=== PATIENT | female | born 1945 | race Caucasian/White ===

== ENCOUNTER → 2017-10-08 10:04 | Outpatient (REF) | payer MEDICARE, SELFPAY ==
[2017-10-08 18:25] LABS: Basophils # 0.1 K/mm3 (0-0.2); Basophils % 0.6 % (0.1-2.0); Eosinophils # 0.3 K/mm3 (0.0-0.4); Eosinophils % 2.8 % (0.1-12.0); Hematocrit 44.7 % (37.0-47.0); Hemoglobin 14.6 g/dL (12.2-16.2); Lymphocytes # 3.6 K/mm3 (0.7-4.5); Lymphocytes % 35.2 K/mm3 (10-50); Mean Corpuscular HGB Conc 32.6 g/dL (31.8-35.4); Mean Corpuscular Hemoglobin 29.2 pg (27.0-31.2); Mean Corpuscular Volume 89.5 fl (81-99); Mean Platelet Volume 7.9 fl (7.4-10.4); Monocytes # 0.5 K/mm3 (0.1-1.0); Monocytes % 4.8 % (1.7-9.3); Neutrophils # 5.8 K/mm3 (1.8-7.8); Neutrophils % 56.6 % (37.0-80.0); Platelet Count 437 K/mm3 (142-424); Red Blood Count 4.99 M/mm3 (4.20-5.40); White Blood Count 10.3 K/mm3 (4.8-10.8)
[2017-10-08 20:35] LABS: Alanine Aminotransferase 20 U/L (12-78); Albumin Level 3.8 gm/dL (3.4-5.0); Albumin/Globulin Ratio 1.1 (1.1-1.8); Alkaline Phosphatase 64 U/L (46-116); Anion Gap 12.5 mEq/L (5-15); Aspartate Amino Transferase 8 U/L (15-37); Bilirubin,Total 0.4 mg/dL (0.2-1.0); Blood Urea Nitrogen 13 mg/dL (7-18); Calcium 9.3 mg/dL (8.5-10.1); Carbon Dioxide 27 mmol/L (21.0-32.0); Chloride 100 mmol/L (98-107); Chol/HDL Ratio 7.3 (1-3.5); Cholesterol 261 mg/dL (140-200); Creatinine,Serum 0.65 mg/dL (0.55-1.02); Estimated Glomerular Filt Rate 90 ml/min (>60); GFR (African American) 108 ML/MIN (>60); Globulin 3.5 gm/dl (1.3-3.2); Glucose 229 mg/dL (74-106); HDL Cholesterol 36 mg/dL (29-89); LDL Cholesterol 165 mg/dL (0-130); Potassium 4.5 mmoL/L (3.5-5.1); Sodium 135 mmol/L (136-145); T4 (Thyroxine) 11.7 ug/dl (4.7-13.3); Thyroid Stimulating Hormone 0.46 uIU/ml (0.358-3.740); Total Protein,Serum 7.3 gm/dL (6.4-8.2); Triglycerides 298 mg/dL (30-200); VLDL Cholesterol 60 mg/dL (0-40)
== END ==
LOC: LAB 10:04
PROVIDERS: Visit Provider Physician Assistant
DX: E03.9 Hypothyroidism, unspecified (principal)
CPT/HCPCS: 80053; 80061; 84436; 84443; 85025

== ENCOUNTER → 2018-06-03 13:23 | Outpatient (CLI) | payer MEDICARE, SELFPAY ==
[2018-06-03 16:41] LABS: Basophils # 0.1 K/mm3 (0-0.2); Basophils % 0.6 % (0.1-2.0); Eosinophils # 0.3 K/mm3 (0.0-0.4); Eosinophils % 2.8 % (0.1-12.0); Hemoglobin 13.4 g/dL (12.2-16.2); Lymphocytes # 3.2 K/mm3 (0.7-4.5); Lymphocytes % 33.7 % (10-50); Mean Corpuscular HGB Conc 33.4 g/dL (31.8-35.4); Mean Corpuscular Hemoglobin 29.3 pg (27.0-31.2); Mean Corpuscular Volume 87.7 fl (81-99); Mean Platelet Volume 7.5 fl (7.4-10.4); Monocytes # 0.4 K/mm3 (0.1-1.0); Monocytes % 3.9 % (1.7-9.3); Neutrophils # 5.5 K/mm3 (1.8-7.8); Platelet Count 434 K/mm3 (142-424); Red Blood Count 4.56 M/mm3 (4.20-5.40); Red Cell Distribution Width 13.9 % (11.5-17.5); White Blood Count 9.4 K/mm3 (4.8-10.8)
[2018-06-03 17:03] LABS: Alanine Aminotransferase 19 U/L (12-78); Albumin Level 3.7 gm/dL (3.4-5.0); Albumin/Globulin Ratio 1.1 (1.1-1.8); Alkaline Phosphatase 60 U/L (46-116); Anion Gap 16.3 mEq/L (5-15); Aspartate Amino Transferase 12 U/L (15-37); Bilirubin,Total 0.4 mg/dL (0.2-1.0); Blood Urea Nitrogen 16 mg/dL (7-18); Calcium 9.3 mg/dL (8.5-10.1); Carbon Dioxide 27 mmol/L (21.0-32.0); Chloride 99 mmol/L (98-107); Chol/HDL Ratio 7.1 (1-3.5); Cholesterol 284 mg/dL (140-200); Creatinine,Serum 0.66 mg/dL (0.55-1.02); Estimated Glomerular Filt Rate 88 ml/min (>60); GFR (African American) 106 ML/MIN (>60); Globulin 3.5 gm/dl (1.3-3.2); Glucose 184 mg/dL (74-106); HDL Cholesterol 40 mg/dL (29-89); LDL Cholesterol 186 mg/dL (0-130); Potassium 4.3 mmoL/L (3.5-5.1); Sodium 138 mmol/L (136-145); T4 (Thyroxine) 11.6 ug/dl (4.7-13.3); Thyroid Stimulating Hormone 2.92 uIU/ml (0.358-3.740); Total Protein,Serum 7.2 gm/dL (6.4-8.2); Triglycerides 288 mg/dL (30-200); VLDL Cholesterol 58 mg/dL (0-40)
[2018-06-05 09:04] LABS: Vitamin D 25 Hydroxy 30.6 ng/mL (30.0-100.0)
== END ==
PROVIDERS: Visit Provider Physician Assistant
DX: E03.9 Hypothyroidism, unspecified (principal); N30.00 Acute cystitis without hematuria; F41.9 Anxiety disorder, unspecified
CPT/HCPCS: 80053; 80061; 82652; 84436; 84443; 85025; 87086; 87088; 87186

== ENCOUNTER → 2018-10-22 13:13 | Outpatient (CLI) | payer MEDICARE, OTHER, MEDICAID, SELFPAY ==
--- NOTE | 2018-10-22 13:24 | XR_ITS ---
XR foot LT min 3V HISTORY: ITS.REASON: pain ORDERING PHYSICIAN: Yumi Desai APRN PATIENT AGE: 73 years COMPARISON: None FINDINGS: There is moderate hallux valgus with osteoarthritic change of the first metatarsophalangeal junction and mild lateral displacement of the proximal phalanx of the great toe. There is a minimally displaced fracture involving the anterior aspect of the calcaneus. As involves the mid subtalar joint region with minimal superior displacement of the distal fracture fragment. There is suggestion of some overlying callus formation on the oblique view. IMPRESSION: Minimally displaced fracture of the anterior aspect of the calcaneus extending cephalad to caudad with minimal superior displacement of the distal fracture fragment extending into the mid subtalar region. This fracture appears subacute
== END ==
PROVIDERS: PCP Nurse Practitioner Family; Visit Provider Nurse Practitioner Family
DX: M79.672 Pain in left foot (principal); S99.922A Unspecified injury of left foot, initial encounter
CPT/HCPCS: 73630

== ENCOUNTER → 2018-10-29 14:53 | Outpatient (CLI) | payer MEDICARE, OTHER, MEDICAID, SELFPAY ==
--- NOTE | 2018-10-29 15:12 | CT_ITS ---
CT foot LT wo con INDICATION: Follow-up calcaneal fracture, preoperative evaluation ITS.REASON: LT CALCANEAL FX ORDERING PHYSICIAN: Jessica Amezcua DPM PATIENT AGE: 73 years COMPARISON: None TECHNIQUE: Contrast Used: Oral Contrast: Axial images were obtained. Sagittal and coronal reformatted images are reviewed as well. All CT scans at the facility use one or more dose reduction, viz: automated exposure control, ma/kV adjustment per patient size (including targeted exams where dose is matched to indication, i.e. head), or iterative reconstruction technique. FINDINGS: There is a comminuted fracture through the anterior aspect of the calcaneus which involves the middle facet/sustentaculum Craig with comminution. There is superior displacement of the distal fracture fragment by approximately 7 mm. The posterior facet and the anterior facet appears intact. There appears to be a small bulge and along the anterior and medial aspect of the talus with a small extra linear bony density at this region. The navicular has an unremarkable appearance. There is a comminuted minimally displaced fracture involving the posterior and inferior aspect of the cuboid. The cuneiforms and metatarsals have an unremarkable appearance. There is mild generalized soft tissue swelling of the mid posterior aspect of the ankle. There is loss of Boehler's angle. IMPRESSION: Comminuted fracture involves the anterior aspect of the calcaneus just posterior to the anterior facet involving the middle facet/sustentaculum talus with superior displacement of the distal fracture fragment, and loss of Boehler's angle with associated comminuted fracture at the proximal and inferior aspect of the cuboid
== END ==
PROVIDERS: PCP Physician Assistant; Visit Provider Podiatrist
DX: S92.062A Displaced intraarticular fracture of left calcaneus, initial encounter for closed fracture (principal); M79.672 Pain in left foot; R60.0 Localized edema; E08.621 Diabetes mellitus due to underlying condition with foot ulcer; L84 Corns and callosities; L60.2 Onychogryphosis; L97.512 Non-pressure chronic ulcer of other part of right foot with fat layer exposed; Z79.84 Long term (current) use of oral hypoglycemic drugs
CPT/HCPCS: 73700

== ENCOUNTER → 2018-12-29 13:20 | Outpatient (CLI) | payer MEDICARE, OTHER, MEDICAID, SELFPAY ==
--- NOTE | 2018-12-29 13:29 | XR_ITS ---
PROCEDURE: XR CALCANEUS LT MIN 2V CLINICAL INDICATION: fracture Follow-up fracture COMPARISON: from 10/22/[address] calcaneus LT from 10/29/2018 XR FOOT WT BEARING LT 3V from 12/29/2018 FINDINGS: Comminuted fracture is once again noted involving the anterior aspect of the calcaneus extending into the anterior subtalar joint. Decreased density/lucency is noted involving the anterior fracture fragments at this level. There is superior displacement of the distal fracture fragments. There is pes planus. There is moderate hallux valgus with osteoarthritis of the 1st MTP joint. IMPRESSION: Comminuted distal calcaneal fracture is once again noted. There is increased lucency at the fracture site with superior displacement of the distal fracture fragment. Pes planus has developed. 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 The lucency at the fracture site also raises the sub possibility of superimposed infection. Please correlate with clinical parameters. Dictated by: Parish Crystal MD 12/29/2018 17:26 Electronically signed by Parish Crystal MD in [place] 12/29/2018 17:26
--- NOTE | 2018-12-29 13:29 | XR_ITS ---
PROCEDURE: XR ANKLE WT BEARING LT MIN 3V CLINICAL INDICATION: pain Pain and swelling COMPARISON: CALLT CT calcaneus LT from 10/29/2018 XR CALCANEUS LT MIN 2V from 12/29/2018 XR FOOT WT BEARING LT 3V from 12/29/2018 FINDINGS: The ankle joint has an unremarkable appearance. Please see the calcaneus and foot report for further description. Tibiotalar joint common medial malleolar region, and lateral malleolar region are unremarkable. Unremarkable talar dome. IMPRESSION: Negative ankle Dictated by: Parish Crystal MD 12/29/2018 17:06 Electronically signed by Parish Crystal MD in [place] 12/29/2018 17:06
== END ==
PROVIDERS: PCP Emergency Medicine; Visit Provider Podiatrist
DX: M79.672 Pain in left foot (principal); S92.002A Unspecified fracture of left calcaneus, initial encounter for closed fracture
CPT/HCPCS: 73610; 73630; 73650

== ENCOUNTER 2019-02-01 16:11 | Outpatient (RCR) | payer MEDICARE, OTHER, MEDICAID, SELFPAY | END 2019-02-01 16:15 | disposition home or self-care (01) | LOC: PT 16:11 | PROVIDERS: PCP Emergency Medicine; Visit Provider Nurse Practitioner Family | DX: R26.89 Other abnormalities of gait and mobility (principal); R26.2 Difficulty in walking, not elsewhere classified ==

== ENCOUNTER → 2019-02-15 15:35 | Outpatient (CLI) | payer MEDICARE, OTHER, MEDICAID, SELFPAY ==
--- NOTE | 2019-02-15 15:41 | XR_ITS ---
PROCEDURE: XR FOOT LT 2V CLINICAL INDICATION: left foot and ankle pain COMPARISON: CALLT CT calcaneus LT from 10/29/2018 XR ANKLE WT BEARING LT MIN 3V from 12/29/2018 XR FOOT WT BEARING LT 3V from 12/29/2018 XR ANKLE LT 2V from 02/15/2019 FINDINGS: Comminuted ununited fracture involves the distal aspect of the calcaneus with lateral subluxation of the calcaneus. Remains superior displacement of the distal fracture fragment there is pes planus. Bony debris is present at the lateral malleolar region. Other findings:None. 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 Dictated by: Parish Crystal MD 02/15/2019 16:04 Electronically signed by Parish Crystal MD in [facility] 02/15/2019 16:04
== END ==
PROVIDERS: PCP Emergency Medicine; Visit Provider Emergency Medicine
DX: M79.672 Pain in left foot; M25.572 Pain in left ankle and joints of left foot
CPT/HCPCS: 73600; 73620

== ENCOUNTER → 2019-02-25 12:55 | Outpatient (CLI) | payer MEDICARE, OTHER, MEDICAID, SELFPAY ==
--- NOTE | 2019-02-25 12:58 | MR_ITS ---
PROCEDURE: MR FOOT LT WO CON CLINICAL INDICATION: left foot and ankle pain Left foot and ankle pain, constant swelling with ankle and foot numbness COMPARISON: CALLT CT calcaneus LT from 10/29/2018 XR ANKLE LT 2V from 02/15/2019 TECHNIQUE: Routine multiplanar multi echo sequences are performed without gadolinium enhancement. FINDINGS: The ankle is not included on this study and was performed on a separate date. There is hallux valgus with mild osteoarthritic change of the 1st MTP joint. The distal tarsals metatarsals and phalanges have an otherwise unremarkable appearance. No fracture, dislocation, lytic lesion or osteomyelitis evident. Soft tissue swelling is present at the dorsum of the foot laterally. IMPRESSION: Mild hallux valgus with osteoarthritis of the 1st MTP joint. Soft tissue swelling along the dorsal lateral aspect of the midfoot. Please see ankle for further description. The mid and hindfoot are not included on this exam. Dictated by: Parish Crystal MD 02/26/2019 08:34 Electronically signed by Parish Crystal MD in [place] 03/07/2019 06:19
== END ==
PROVIDERS: PCP Emergency Medicine; Visit Provider Emergency Medicine
DX: M79.672 Pain in left foot; M25.572 Pain in left ankle and joints of left foot
CPT/HCPCS: 73718

== ENCOUNTER → 2019-02-28 14:31 | Outpatient (CLI) | payer MEDICARE, OTHER, MEDICAID, SELFPAY ==
--- NOTE | 2019-02-28 14:36 | MR_ITS ---
PROCEDURE: MR ANKLE LT WO CON CLINICAL INDICATION: ankle pain History of ankle fracture with recent re-injury with limited range of motion. Pain and swelling COMPARISON: CALLT CT calcaneus LT from 10/29/2018 TECHNIQUE: Routine multiplanar multi echo sequences are performed without gadolinium enhancement. FINDINGS: There is mild bone marrow edema of the talus. There is diffuse bone marrow edema of the calcaneus. There is an old fracture of the distal aspect of the calcaneus with nonunion of the distal fracture fragments and comminution. There is diffuse edema about the midfoot. There is lateral subluxation of the calcaneus at the talocalcaneal joint by approximately 13 mm. This has developed since the previous CT scan. There is diffuse soft tissue swelling along the medial aspect of the talus and the distal aspect of the calcaneus. A small fluid collection is present lateral to the flexor hallucis longus tendon at 14 mm. Fluid is also present along the peroneal tendon sheath. The Achilles tendon appears intact as do the anterior extensor tendons. The talonavicular joint is unremarkable. There is a longitudinal area of decreased T1 and increased T2 signal within the posterior aspect of the calcaneus which could be due to a nondisplaced fracture. IMPRESSION: 1. Nonunited comminuted fracture involves the anterior aspect of the talus as noted on the previous CT scan. 2. There has been interval development of lateral subluxation of the calcaneus at the talonavicular joint. 3. There may be a nondisplaced fracture of the posterior and inferior aspect of the calcaneus 4. Diffuse soft tissue swelling about the ankle and midfoot as described above with bone marrow edema of the calcaneus and talus. There is a mild degree of artifact from motion. Consider repeating CT scan for better bony detail and to compared to the previous CT scan 10/29/2018. 5. Diffuse soft tissue swelling which may be inflammatory or infectious. No obvious osteomyelitis however, that entity is not excluded involving the distal calcaneal fracture fragments which are not well delineated. Dictated by: Parish Crystal MD 03/01/2019 14:26 Electronically signed by Parish Crystal MD in [place] 03/07/2019 06:37
== END ==
PROVIDERS: PCP Emergency Medicine; Visit Provider Emergency Medicine
DX: M25.572 Pain in left ankle and joints of left foot (principal)
CPT/HCPCS: 73721

== ENCOUNTER → 2019-03-14 13:38 | Outpatient (CLI) | payer MEDICARE, OTHER, MEDICAID, SELFPAY ==
--- NOTE | 2019-03-14 14:09 | ECG_ITS ---
APPROVED REPORT Exam: Resting ECG HR:89 bpm ECG Measurements Heart Rate 89 AXES OK 150 P 71 QRSd 84 QRS 46 QT 360 T 58 QTc 438 <Conclusion> Normal sinus rhythm Possible Anterior infarct, age undetermined Abnormal ECG Electronically signed by : Calvin Pablo, 03/20/2019 14:37:17
--- NOTE | 2019-03-14 14:14 | XR_ITS ---
PROCEDURE: XR CHEST 2V CLINICAL HISTORY: CURRENT SMOKER COMPARISON: CXR CHEST(2 VIEWS-NOT PORTABLE) from 07/12/[id number] abdomen pelvis w con from 07/24/2018 FINDINGS: The cardiomediastinal silhouette and pulmonary vascularity are within normal limits. There is a stable punctate 2 millimeter lingular or left lower lobe benign calcified granuloma. Lung major are otherwise clear and there is no pleural effusion or pneumothorax. No acute bony abnormalities. Again seen is the density at the right cardiophrenic angle which when compared with prior CT scan from 07/24/2018 this is a developmental prominent epicardial fat pad. IMPRESSION: No acute findings. Dictated by: Ector Boswell 03/14/2019 14:56 Electronically signed by Ector Boswell in [place] 03/14/2019 14:56
--- NOTE | 2019-03-14 14:14 | XR_ITS ---
PROCEDURE: XR DEXA AXIAL SKELETON CLINICAL INDICATION: POST MENOPAUSAL COMPARISON: No exams were available for comparison FINDINGS: Lumbar spine (L1 through L4), BMD 1.172, T-score 1.1 Right hip (neck), BMD 0.853, T-score 0.0 Right hip (Total), BMD 0.944, T-score 0.0 Left hip (neck), BMD 0.739, T-score -1.0 Left hip (Total), BMD 0.893, T-score -0.4 IMPRESSION: Borderline mild osteopenia. It should be noted lumbar spine is less reliable to evaluate because of false elevation of the bone density related to subchondral sclerosis and marginal spurs especially at L2 and L3 levels. Dictated by: Ector Boswell 03/14/2019 18:43 Electronically signed by Ector Boswell in [place] 03/14/2019 18:43
[2019-03-14 14:19] LABS: Basophils # 0.1 K/mm3 (0-0.2); Basophils % 0.7 % (0.1-2.0); Eosinophils # 0.2 K/mm3 (0.0-0.4); Eosinophils % 2.5 % (0.1-12.0); Hematocrit 39.3 % (37.0-47.0); Hemoglobin 13.1 g/dL (12.2-16.2); Lymphocytes # 3.4 K/mm3 (0.7-4.5); Lymphocytes % 38.3 % (10-50); Mean Corpuscular HGB Conc 33.5 g/dL (31.8-35.4); Mean Corpuscular Hemoglobin 28.6 pg (27.0-31.2); Mean Corpuscular Volume 85.5 fl (81-99); Mean Platelet Volume 7.2 fl (7.4-10.4); Monocytes # 0.4 K/mm3 (0.1-1.0); Monocytes % 4.5 % (1.7-9.3); Neutrophils # 4.7 K/mm3 (1.8-7.8); Neutrophils % 53.9 % (37.0-80.0); Platelet Count 476 K/mm3 (142-424); Red Blood Count 4.59 M/mm3 (4.20-5.40); Red Cell Distribution Width 13.8 % (11.5-17.5); White Blood Count 8.8 K/mm3 (4.8-10.8)
[2019-03-14 15:18] LABS: Erythrocyte Sedimentation Rate 51 mm/hr (0-30)
[2019-03-14 15:42] LABS: Anion Gap 13.9 mEq/L (5-15); Blood Urea Nitrogen 12 mg/dL (7-18); C-Reactive Protein 0.9 mg/dL (0.0-0.9); Calcium 8.6 mg/dL (8.5-10.1); Carbon Dioxide 27 mmol/L (21.0-32.0); Chloride 101 mmol/L (98-107); Creatinine,Serum 0.66 mg/dL (0.55-1.02); Estimated Glomerular Filt Rate 88 ml/min (>60); GFR (African American) 106 ML/MIN (>60); Glucose 87 mg/dL (74-106); Potassium 3.9 mmoL/L (3.5-5.1); Sodium 138 mmol/L (136-145)
[2019-03-14 17:09] LABS: Hemoglobin A1C 6.8 % (0.0-7.0)
[2019-03-17 05:21] LABS: Vitamin D 25 Hydroxy 15.6 ng/mL (30.0-100.0)
== END ==
PROVIDERS: PCP Emergency Medicine; Visit Provider Podiatrist
DX: Z01.818 Encounter for other preprocedural examination (principal); S92.002K Unspecified fracture of left calcaneus, subsequent encounter for fracture with nonunion; E11.610 Type 2 diabetes mellitus with diabetic neuropathic arthropathy; M85.89 Other specified disorders of bone density and structure, multiple sites
CPT/HCPCS: 36415; 71046; 77080; 80048; 80323; 82652; 83036; 85025; 85651; 86140; 93005

== ENCOUNTER → 2019-03-28 13:49 | Outpatient (CLI) | payer MEDICARE, OTHER, MEDICAID, SELFPAY ==
--- NOTE | 2019-03-28 13:49 | CT_ITS ---
PROCEDURE: CT ANKLE LT WO CON CLINICAL HISTORY: left foot pain, left calcaneus fx Follow-up left calcaneal/ankle fracture COMPARISON: CALLT CT calcaneus LT from 10/29/2018 MR ANKLE LT WO CON from 02/28/2019 TECHNIQUE: Axial images obtained with sagittal and coronal reformats. All CT scans at the facility use one or more dose reduction, viz: automated exposure control, ma/kV adjustment per patient size (including targeted exams where dose is matched to indication, i.e. head), or iterative reconstruction technique. FINDINGS: There is diffuse subcutaneous soft tissue swelling involving the ankle. The tibial talar joint has an unremarkable appearance other than mild osteoarthritis. There is mild fragmentation of the distal and dorsal aspect of the talus.. Moderate bony debris is present posterior to the talus. The patient has had either an osteotomy or there is a nonunited fracture involving the distal aspect of the calcaneus. The distal fragments are now more fragmented compared to the previous exam. There is some mild superior displacement of the distal aspect of the calcaneus. Bony fragmentation is present medial to the distal aspect of the calcaneus. There is moderate lateral subluxation of the calcaneus at the talocalcaneal joint. The calcaneus is subluxed laterally by with 13 mm. This has developed since the previous exam. There are osteoarthritic changes of the subtalar joint posteriorly. There is mild inferior displacement of the navicular at the talonavicular joint slightly greater compared to the previous exam. There is extensive soft tissue swelling about the ankle and midfoot which is worse compared to the previous study. No obvious fluid collections are evident. IMPRESSION: Lucency within the distal aspect of the calcaneus which has the appearance of an osteotomy site or an old fracture with non bony union with increasing fragmentation at this bony defect laterally and medially with increasing soft tissue swelling. These findings may be seen with Charcot joint. Cellulitis and osteomyelitis is considered. There is lateral displacement of the calcaneus at the talar calcaneal joint. Dictated by: Parish Crystal MD 03/30/2019 08:45 Electronically signed by Parish Crystal MD in [place] 03/30/2019 08:45
--- NOTE | 2019-03-28 14:11 | US_ITS ---
APPROVED REPORT Exam Type: Ankle to Brachial Index Civil Process Server: Lois Whiting CRT Indications Claudication: Risk Factors Diabetes Current Smoker Pressures/Indices Right Indices Left Indices Brachial 202.00 mmHg Brachial 208.00 mmHg High Thigh 183.00 mmHg 0.90 High Thigh 219.00 mmHg 1.10 Calf 172.00 mmHg 0.80 Calf 170.00 mmHg 0.80 Ankle(PT) 167.00 mmHg 0.80 Ankle(PT) 163.00 mmHg 0.78 Ankle(DP) 169.00 mmHg 0.80 Ankle(DP) 137.00 mmHg 0.66 Digit 107.00 mmHg 0.50 Digit 70.00 mmHg 0.34 Findings R ARIK 0.8 L ARIK 0.8 R TBI 0.5 L TBI 0.3 Normal pulses Normal waveforms Conclusion Low ARIK bilaterally indicating mild PAD Electronically signed by : Parish Crystal MD 03/28/2019 15:44:47
== END ==
PROVIDERS: PCP Emergency Medicine; Visit Provider Podiatrist
DX: M67.02 Short Achilles tendon (acquired), left ankle (principal); M79.672 Pain in left foot; S92.002A Unspecified fracture of left calcaneus, initial encounter for closed fracture; S92.102 Unspecified fracture of left talus; Z01.818 Encounter for other preprocedural examination; I73.9 Peripheral vascular disease, unspecified; G25.81 Restless legs syndrome; R60.0 Localized edema; F17.200 Nicotine dependence, unspecified, uncomplicated
CPT/HCPCS: 73700; 93923

== ENCOUNTER 2019-05-04 06:05 | Observation (INO) ==
[2019-05-04 06:45] LABS: Basophils # 0.1 K/mm3 (0-0.2); Basophils % 0.7 % (0.1-2.0); Eosinophils # 0.2 K/mm3 (0.0-0.4); Eosinophils % 2.6 % (0.1-12.0); Hematocrit 41.1 % (37.0-47.0); Hemoglobin 13.1 g/dL (12.2-16.2); Lymphocytes # 2.2 K/mm3 (0.7-4.5); Lymphocytes % 26.2 % (10-50); Mean Corpuscular HGB Conc 31.8 g/dL (31.8-35.4); Mean Corpuscular Volume 86.8 fl (81-99); Mean Platelet Volume 7.1 fl (7.4-10.4); Monocytes # 0.4 K/mm3 (0.1-1.0); Monocytes % 5.1 % (1.7-9.3); Neutrophils # 5.4 K/mm3 (1.8-7.8); Neutrophils % 65.4 % (37.0-80.0); Platelet Count 529 K/mm3 (142-424); Red Blood Count 4.74 M/mm3 (4.20-5.40); Red Cell Distribution Width 14.4 % (11.5-17.5); White Blood Count 8.3 K/mm3 (4.8-10.8)
[2019-05-04 07:04] LABS: Anion Gap 13.2 mEq/L (5-15); C-Reactive Protein 1.8 mg/dL (0.0-0.9)
[2019-05-04 08:34] LABS: Erythrocyte Sedimentation Rate 82 mm/hr (0-30)
--- NOTE | 2019-05-04 08:38 | Progress Note ---
[facility] Anesthesia Checklist - Patient Identification Patient Identification: Arm Band, Verbal (Name & ) - Structural Data Admitted From: Home Planned Operative Procedure/s: left charcot reconstruction Consent for Planned Operative Procedure(s) Verified: Yes Verified Documents: Surgical Consent, History and Physical, Cardiac Clearance - NPO Status Verified Time NPO: 21:00 - Chart Verification Results Verified: CBC, BMP, ECG, Chest Xray - Additional verifications Fingerstick Blood Glucose: 112 Anesthesia Reactions: No Hx Blood Transfusions: No Blood Transfusion Reaction: No - Airway Assessment C-Spine Mobility Assessed: Yes TMJ Mobility Assessed: Yes Dentition: Poor Dentition (chipped, broken, missing teeth) - Neurological Assessment Level of Consciousness: Awake, Alert (anxious), Appropriate, Follows Commands Hx Seizures: No Numbness or tingling in extremities: No - Anesthesia Plan Anesthesia Risk discussed: Yes Anesthesia Plan: Verified ASA Class: III Anesthesia Type: General w/block (left popliteal/saphanous) [facility] History I have reviewed the patient's past medical history: Yes Medical History: Reports:: Anxiety, Depression, Diabetes Mellitus Type 2, Gastroesophageal Reflux Disease(GERD), Hypertension, Peripheral Artery Disease Denies:: Diabetes Mellitus Type 1, Internal Pacemaker, MRSA, Seizures *Have you ever received a pneumonia vaccine?: Yes *Have you received a flu vaccine this season?: Yes Other Medical History: Reports: Hypothyroidism. Denies: Blood Transfusion Reaction Anesthesia experience/problems:: none Laterality Cases: Bilateral: Tonsillectomy, Other Other Surgeries: Yes: Angiogram, Cholecystectomy, Hernia Repair, Thyroidectomy, Tubal Ligation. No: Pacemaker Amputation: No Fractures: Yes - *Social History Educational Level: Attended High School Smoking Status: Current every day smoker Tobacco Type: cigarettes # Packs/Day (cigarettes): 1 Alcohol Intake: never Substance Use Type: denies use *Occupational Status:: retired Housing: house Household Members: none *Travel in the last 8 weeks: None - Psychiatric History Pschychiatric History:: Reports:: Anxiety, Depression Family Hx:: Cancer, Diabetes, Stroke
--- NOTE | 2019-05-04 14:55 | Progress Note ---
[facility] Anesthesia Record Part I Intake, IV Amount: 2,100 Estimated blood loss (mL): 150 Urine output (mL): 150 Blood Products used (#): none Blood Pressure: 158/59 SaO2: 96 Pulse Rate: 83 Respiratory Rate: 18 Temperature: 98.0 F Patient is:: Drowsy, Nasal O2, Stable Stable to PACU at:: 14:48
--- NOTE | 2019-05-04 14:59 | Operative Note ---
Date of procedure: 05/04/19 Pre-op Diagnosis:: 1. Left Charcot neuroarthropathy, Charcot foot/ankle deformity 2. Left calcaneal fracture dislocation 3. 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 Left gastroc-soleus equinus 5. Left foot and ankle osteoarthritis 6. Left ankle synovitis 7. Left peroneal tendon synovitis, tear Post-op Diagnosis:: Same Procedure performed:: 1. Left open reduction internal fixation calcaneal fracture 2. Left Charcot fracture relocation, ankle arthrodesis, STJ and CC joint arthrodesis 3. Left calcaneal fracture non-union debridement, bone graft 4. Left Charcot midfoot stabilization 5. Left application of external fixation device 6. Left tendo Achilles lengthening 6. Left ankle synovectomy 7. Left calcaneal bone biopsy 8. Left peroneal tendon debridement and repair 9. Left application of amniotic membrane Surgeon:: Jessica Amezcua DPM Roll Machine Operator(s):: Sana Damico HOUSEKEEPING MANAGER:: Nicanor Murry Anesthesia: GETA, regional Estimated blood loss (mL): 50 Clinical Note:: Left Foot Charcot Neuroarthropathy: I had a long discussion with the patient about the etiology and treatment of Charcot foot. I explained how her diabetes and peripheral neuropathy have contributed to this. We also had a long discussion about her hemoglobin A1c and sugar control. I explained that it is imperative that the sugar stay down, with a goal of under 7.0. Patient does currently smoke. We discussed in detail smoking cessation. We discussed the progression of Charcot and how that puts her at high risk for medial arch collapse, foot deformities, ulceration, infection leading to amputation, loss of digits, part of the foot or even the leg. She verbalizes understanding. The patient and I had a long discussion about her treatment course. We discussed the conservative treatment option of strict nonweightbearing to the left lower extremity. The patient has been over 4 months now and new MRI imaging shows worsening Charcot breakdown with fracture nonunion and dislocation. We did discuss surgical intervention with the application of an external fixator. She has agreed to be nonweightbearing for several weeks and with the external fixator. I explained because that there is no open wounds, history of open wounds, or infection that it is possible to do a Charcot reconstruction with internal fixation. I had a long discussion with the patient and her daughter about postoperative treatment. Patient needs to evaluate her living situation. We discussed at length possible SNF for rehab as she lives alone and has a dog. Patient will need to be nonweightbearing after surgery and will need assistance with activities of daily living. The patient understands post op she will be NWB. She also understands that she will need to have [facility] custom ([facility]) bracing and physical therapy. She will need DM shoes. After a long discussion with the patient in regards to the conservative versus surgical treatment for the Charcot deformity, the patient has elected to proceed with surgery because they have have admitted limited compliance with conservative treatment and continue to have pain and worsening symptoms affecting daily activities. The patient has been instructed on the planned procedure, all risk versus benefits of the procedure discussed. These include but are not limited to: bleeding, infection of soft tissue or bone, nerve and blood vessel damage, need for further surgery, delay in healing of soft tissue or bone, failure of bones to heal, non-union, mal-union, failure of the implant, broken pins, over lengthening of the tendon, prolonged pain and recovery, prolonged swelling, CPRS/RSD, DVT, anesthetic complications and even . No guarantees were given. All questions fully answered. The patient verbalized understanding and agreed to proceed with surgery. Written consent was obtained. Necessary labs and pre-op testing ordered: CBC, CMP, CXR, EKG, vascular studies (ARIK/toe pressures b/l), DEXA, nicotine/cotinine levels, vit D. All results reviewed. Additional cardiac testing performed and clearance granted per Megha Blanchard and Dr Greene. Medical clearance per Dinorah Swain and Dr. Solano. Operative findings:: Left Charcot neuroarthropathy with soft crumbly bone. Displaced comminuted calcaneal fracture dislocation. Talus had Charcot changes with multiple bone defects. Peroneal tendon and ankle joint synovitis. Thick irregular fibrotic tissue. The case took 1.5 hours longer than normal due to the severity of the fracture dislocation and the fibrotic scar tissue. Operative note:: On this date and time patient was deemed an appropriate surgical candidate. Anesthesia performed a pre-op regional popliteal nerve block. With informed consent signed, the patient was taken to the operating theater. The patient was positioned supine. General anesthesia was induced. Tourniquet was applied to the left thigh at 250mmHg. Left Tendon Achilles Lengthening: The left lower extremity was prepped and draped in a normal sterile fashion. Attention was directed to the posterior leg. Three stab incisions where made overlying the Achilles. Utilizing the three holes, percutaneous inocencio-section of the Achilles was performed with the foot maximally dorsiflexed. Release of the Achilles contracture was noted. The incisions were flushed with copious sterile saline and the wound was closed with 3-0 Nylon. Left Foot Charcot Reconstruction: Intraoperative fluoroscopy was utilized to take x-rays of both the foot and ankle. Attention was directed to the lateral foot where an incision was mapped out over the fibula extending superior to the displaced calcaneus. Left Ankle Arthrodesis: Attention was directed to the lateral aspect of the foot and ankle. A curvilinear incision was mapped out extending proximal and posterior to the fibula along the course of the peroneal tendons and dorsal extending over the fourth fifth met base cuboid junction. Dissection was carried through skin to subcutaneous tissue with care taken to maintain surgical hemostasis and safely retract neurovascular structures. Dissection was carried through deep fascia to the level of the bone. The EDB was torn and attentuated. There was dorsal spurring and cartilage wear noted along the ankle joint, anterior process of calcaneus was completely fractured and dislocated. Cannula position was noted to be lateral to the fibula. The talus had severe erosions. Arthritic degenerative changes noted throughout the STJ, CC joints. The ATFL was torn and and CFL was attenuated. Peroneal tendons visualized and brevis flattened, torn and longus had synovitis. Left Foot and Ankle Synovectomy: It should be noted that during the dissection and opening up of the ankle joint, STJ and peroneal sheath there was reddish brown fluid noted from the joints. It was sharply brought up with a 15 blade and wound was flushed with copious amounts of normal sterile saline with bacitracin irrigation. Left Calcaneal Bone Biospy: The calcaneal bone was crumbly and soft. No clementine purulence or signs of infection noted. A piece of the calcaneal bone was sent as a specimen bone pathology as well as bone culture. Left Calcaneal Fracture Non-union Debridement, ORIF: Attention was directed to the calcaneal fracture which was debrided. The nonunion site was debrided with a curette and osteotomes.Tensix DBM, Augment were used to graft the non-union. Pieces of calcaneus was reapproximated and later stabilized with screws as below. Left Subtalar Joint Arthrodesis, Calcaneal Cuboid Joint Arthrodesis: Medial cartilage erosion noted to the talus. There is synovitis and scar tissue in the medial and lateral ankle gutter. Both the ankle and STJ were distracted and an osteotome and curette was then used to resect the remaining cartilage down to the level of good healthy bleeding bone. Once all joints have been pr epped to the level good healthy bleeding bone the wound was flushed with copious amounts of normal sterile saline. Intraoperative fluoroscopy was utilized to check position. Temporary fixation was inserted to check reduction. Intraoperative fluoroscopy was utilized and reduction was deemed to be adequate. At this point temporary fixation was removed. A 2-0 drill bit was then used to further fenestrate the joints down to the level good healthy bleeding bone. The quality of the patient's bone was very poor. There was significant fragmentation and crumbling noted to the bones. When the temporary fixation was placed into the plate it was easily removed by hand due to the quality of the bone. Because of the poor quality of bone it was decided to insert extra fixation. At this point, the ankle joint was reduced and cannulated 7.0mm beam screw was inserted. Good compression and reduction of the ankle was noted. Next the subtalar joint then the calcaneal cuboid joint was reduced and 2 partially threaded cannulated 7.0 mm beams were inserted as well as the nail, compressing the calcaneal fracture and STJ. Calcaneal axial, lateral, ankle views were obtained and deemed to be appropriate in terms of reduction and fixation. The wound was flushed with copious amounts of normal sterile saline with bacitracin irrigation. Left Medial Column Stabilization: Next attention was directed to the first metatarsal phalangeal joint where a stab incision was made over the metatarsal head. A 7.0 mm cannulated beam was inserted from the metatarsal head in standard technique into the talus along the medial column. Beam inserted through the metatarsal, cuneiform, navicular and talus. Calcaneal axial, lateral, ankle views were obtained and deemed to be appropriate in terms of reduction and fixation. The wound was flushed with copious amounts of normal sterile saline with bacitracin irrigation. Left Peroneal Brevis Repair, Peroneus Longus Debridement, Synovectomy: Attention was directed to the lateral incision where the peroneal brevis tendon was noted to be very degenerate, flattened as well as torn longitudinally. The tendon was very stretched out. A portion of the peroneus brevis tendon at the level of the fibula malleolus was transected and send to pathology as a specimen. Synovitis was noted around the tendon sheath. It was debrided. Peroneus longus had thickness and synovitis as well. Utilizing 3-0 Vicryl the tears were repaired in a baseball fashion. Final intraoperative fluoroscopy was utilized. Application of Amniotic Membrane: Deep closure was performed with 2-0 Vicryl on both the anterior and lateral incisions. After deep closure, the amniotic membrane was inserted over the deep fascia and around the peroneal tendon to prevent adhesions. The subcutaneous la scarlet was closed with 2-0 and 3-0 Vicryl, and more membrane was inserted prior to skin closure. 7 flat YOKASTA drain inserted. The skin was closed with 3-0 nylon in a Horizontal mattress fashion and reinforced with shannon. Viaflow inserted into the incisions. The tourniquet was deflated at 100 minutes. Immediate hyperemic response was noted to the digits upon deflation of the tourniquet. The tourniquet was reinflated one more time during the case, after it was deflated immediate hyperemic response was noted to the digits. The wounds were cleansed. Left foot application of External fixation device: A [employer] salvation external fixation device was utilized. The frame had been prebuilt with a footplate, two full leg rings and a 5/8th ring. Leg holders were positioned and the leg placed in the frame. Attention was directed to the lateral calcaneus where an olive wire was positioned from the inferior lateral calcaneus and driven to the medial inferior calcaneus. The calcaneus felt soft in texture. Next a second olive wire was driven from the medial calcaneus into the lateral calcaneus. Attention was directed proximally to the proximal most ring where a wire was driven from the anterior face of the tibia lateral to medial and a second wire driven from medial to lateral. The wires were tensioned and some stability was noted to the frame. Next 2 smooth wires were used this time on the distal tibia from medial to lateral lateral to medial in an "X" pattern. The leg wires were tensioned to 120. Good stability of the frame was noted. Next a smooth wire was positioned from the medial first metatarsal capturing the second metatarsal and exiting dorsal lateral on the midfoot. Similarly another wire was placed from the fifth metatarsal angle proximal medial capturing the fifth fourth metatarsal prior to exiting. The distal foot wires were then tensioned to 90. Adequate position of the foot within the frame was noted. The skin was not touching or rubbing against the frame in any plane. Intraoperative fluoroscopy was utilized to obtain x-rays which showed adequate position of foot within the frame. Wires were tightened. Xeroform applied around the pin sites and a dry sterile dressing was applied to the foot. The foot plate was attached. The patient was awoken from anesthesia and transferred to recovery with vital signs stable and neurovascular status intact. Due to the patients Charcot deformity and fracture non-union, this case took 1.5-2 hours longer than usual. The case was more tedious due to the Charcot deformity, quality of bone, excessive subcutaneous fat layers and fibrotic scar tissue. The case was also complicated by the bone quality which was soft and crumbly, it was difficult to hold reduction with the fixation. Materials: [employer] Charcot Salvation 160mm external fixator, olive wires x8 [employer] 7.0mm cannulated beam x 5 [employer] 8.0mm midfoot nail, 3.5mm non locking screw Viaflow x1 (2cc) Augment x1 (3cc) Tensix DBM x1 (10cc) [employer] amniotic graft x 1 (4x3cm) 7 flat YOKASTA drain Discharge/Plan: Patient will be admitted for observation for pain control and medical mgmt per Dr. Solano-PCP. Patient is to maintain dressing and ex fix clean dry and intact. Ice behind the left knee and left lower extremity with DME assistance (walker, wheelchair). Obtain post op films, left calc, ankle and foot, 3 views. PT in the am for gait training and transitions. Plan to d/c to SNF. Tourniquet time (min): 200 Condition: stable Disposition: observation Specimens:: Left calcaneal bone culture Left calcaneal bone pathology Complications:: None
--- NOTE | 2019-05-04 15:44 | Consult Report ---
*Admission Date: 05/04/19 <Jessica Amezcua 05/04/19 15:45> *Reason for consult:: Left DM Charcot fracture dislocation, non-union <Jessica Amezcua 05/04/19 15:45> *History of present illness: Mrs. Narvaez is a 73 y/o DM female who presents for admission post op left Charcot calcaneus fracture dislocation, non-union repair. Patient initially fractured the left calcaneus October 2018. Patient was noncompliant and missed several appointments. She continued to weight-bear with and without the fracture boot. She did finally get an electric scooter. She states 02/15/19 she tripped and heard a pop along the outside of the left foot and ankle. She states it started to swell and she had pain. Patient did see Dr. Solano who ordered new x-rays. Patient then underwent an MRI 02/28/2019 which showed the calcaneal fracture as well as a subtalar dislocation. Since then patient has subsequently seen cardiology and had a left lower extremity runoff procedure. She presents for admission for SNF placement for postop ex- fix management, physical therapy and further care with activities of daily living as patient lives alone and will be strict nonweightbearing during the postoperative period. <SevenJessica 05/04/19 15:45> Review of Systems - Review of Systems Review of systems:: pertinent systems reviewed and negative unless documented below <SevenJessica 05/04/19 15:45> - Constitutional Denies anorexia, Denies chills <SevenJessica 05/04/19 15:45> - Eyes Denies blind spots <SevenJessica 05/04/19 15:45> - ENT Denies abnormal hearing <SevenJessica 05/04/19 15:45> - *Cardiovascular Denies chest pain, Denies shortness of breath <SevenJessica 05/04/19 15:45> - *Respiratory Denies chest congestion <SevenJessica 05/04/19 15:45> - *Gastrointestinal Denies abdominal pain, Denies vomiting <Jessica Amezcua 05/04/19 15:45> - *Genitourinary Denies abnormal periods <Jessica Amezcua 05/04/19 15:45> - *Musculoskeletal Reports joint pain, Reports deformity, Reports joint swelling, Reports limited joint movement <Jessica Amezcua 05/04/19 15:45> - Integumentary/Breasts Reports hair loss, Reports nail changes, Reports change in skin color <Kaleb Amezcua05/04/19 15:45> - *Neurologic Reports tingling/numbness/burning sensations <Kaleb Amezcua05/04/19 15:45> - Psychiatric Denies behavioral changes <Kaleb Amezcua05/04/19 15:45> - Endocrine Denies cold intolerance <Kaleb Amezcua05/04/19 15:45> - Hematologic/Lymphatic Reports easy bruising <Kaleb Amezcua05/04/19 15:45> - Allergic/Immunologic Reports GI upset with certain foods <Seven05/04/19 15:45> [facility] History I have reviewed the patient's past medical history: Yes <Jessica Amezcua 05/04/19 15:45> Medical History: Reports:: Anxiety, Cancer, Depression, Diabetes Mellitus Type 2, Gastroesophageal Reflux Disease(GERD), Hypertension, Peripheral Artery Dis ease Denies:: Diabetes Mellitus Type 1, Internal Pacemaker, MRSA, Seizures <Jessica Amezcua 05/04/19 15:45> *Have you ever received a pneumonia vaccine?: Yes <Jessica Amezcua 05/04/19 15:45> *Have you received a flu vaccine this season?: Yes <Jessica Amezcua 05/04/19 15:45> Other Medical History: Reports: Hypothyroidism. Denies: Blood Transfusion Reaction <Jessica Amezcua 05/04/19 15:45> Anesthesia experience/problems:: none <Jessica Amezcua 05/04/19 15:45> Laterality Cases: Bilateral: Tonsillectomy, Other <Jessica Amezcua 05/04/19 15:45> Other Surgeries: Yes: Angiogram, Cholecystectomy, Hernia Repair, Thyroidectomy, Tubal Ligation. No: Pacemaker <Jessica Ameczua 05/04/19 15:45> Amputation: No <Jessica Amezcua 05/04/19 15:45> Fractures: Yes <Jessica Amezcua 05/04/19 15:45> - *Social History Educational Level: Attended High School <Jessica Amezcua 05/04/19 15:45> Smoking Status: Current every day smoker <Kaleb Amezcua05/04/19 15:45> Tobacco Type: cigarettes <Jessica Amezcua 05/04/19 15:45> # Packs/Day (cigarettes): 1 <Kaleb Amezcua05/04/19 15:45> Alcohol Intake: never <Kaleb Amezcua05/04/19 15:45> Substance Use Type: denies use <Kaleb Amezcua05/04/19 15:45> *Occupational Status:: retired <Jessica Amezcua 05/04/19 15:45> Housing: house <Seven05/04/19 15:45> Household Members: none <Seven05/04/19 15:45> *Travel in the last 8 weeks: None <Kaleb Amezcua05/04/19 15:45> - Psychiatric History Pschychiatric History:: Reports:: Anxiety, Depression <Kaleb Amezcua05/04/19 15:45> Family Hx:: Cancer, Diabetes, Stroke <Kaleb Amezcua05/04/19 15:45> Meds Home Medications Medication Instructions Recorded Confirmed Type glimepiride 4 mg tablet 4 mg PO DAILY #90 tab 02/15/19 05/04/19 Rx hydrocodone 7.5 mg-acetaminophen 1 tab PO TID PRN #63 tab 03/29/19 05/04/19 Rx 325 mg tablet omeprazole 20 mg tablet,delayed 20 mg PO DAILY #90 tab 04/27/19 05/04/19 Rx release Levothyroxine Sodium [Synthroid] 125 mcg PO DAILY 05/03/19 05/04/19 History Pramipexole Di-HCl [Pramipexole 1.5 mg PO QHS 05/03/19 05/04/19 History Dihydrochloride] chlordiazePOXIDE HCl 5 mg PO NEEDED PRN 05/04/19 05/04/19 History [Chlordiazepoxide HCl] <Jessica Amezcua 05/04/19 15:45> Allergies Allergy/AdvReac Type Severity Reaction Status Date / Time ciprofloxacin [From Cipro] Allergy Severe Hives Verified 05/04/19 06:24 indomethacin Allergy Mild Vomiting Verified 05/04/19 06:24 levofloxacin [From Levaquin] Allergy Mild Unknown Verified 05/04/19 06:24 allergy reaction meloxicam [From Mobic] Allergy Mild Unknown Verified 05/04/19 06:24 allergy reaction prednisone Allergy Mild Unknown Verified 05/04/19 06:24 allergy reaction ropinirole Allergy Mild Unknown Verified 05/04/19 06:24 allergy reaction Sulfa (Sulfonamide Allergy Mild Rash Verified 05/04/19 06:24 Antibiotics) sulfamethoxazole Allergy Mild Rash Verified 05/04/19 06:24 [From Bactrim] trazodone Allergy Mild Unknown Verified 05/04/19 06:24 allergy reaction trimethoprim [From Bactrim] Allergy Mild Rash Verified 05/04/19 06:24 levothyroxine sodium Allergy Unknown Difficulty Verified 05/03/19 14:19 Breathing <SevenJessica - 05/04/19 15:45> Exam Vital signs and Labs for Last 24 Hours: Temp Pulse Resp BP Pulse Ox 98.0 F 83 18 158/59 H 96 05/04/19 14:54 05/04/19 14:54 05/04/19 14:54 05/04/19 14:54 05/04/19 06:30 Laboratory Results - last 24 hr 05/04/19 06:30: WBC 8.3, RBC 4.74, Hgb 13.1, Hct 41.1, MCV 86.8, MCH 27.6, MCHC 31.8, RDW 14.4, Plt Count 529 H, MPV 7.1 L, Neut % (Auto) 65.4, Lymph % (Auto) 26.2, Gordon % (Auto) 5.1, Eos % (Auto) 2.6, Baso % (Auto) 0.7, Neut # (Auto) 5.4, Lymph # (Auto) 2.2, Gordon # (Auto) 0.4, Eos # (Auto) 0.2, Baso # (Auto) 0.1, ESR 82 H 05/04/19 06:30: Sodium 139, Potassium 4.2, Chloride 103, Carbon Dioxide 27, Anion Gap 13.2, BUN 17, Creatinine 0.77, Estimated Creat Clear 58, Estimated GFR 73, Est GFR ( Amer) 89, Glucose 103, Calcium 9.0, C-Reactive Protein 1.8 H 05/04/19 06:30: POC Glucose 112 H 05/04/19 07:45: Urine Color Yellow, Urine Appearance Clear, Urine pH 5.5, Ur Specific [place] >= 1.030, Urine Protein 2+, Urine Glucose (UA) Negative, Urine Ketones Negative, Urine Blood 1+, Urine Nitrate Negative, Urine Bilirubin Negative, Urine Urobilinogen 0.2, Ur Leukocyte Esterase Negative, Urine RBC 5- 10, Urine WBC 3-5, Ur Squamous Epith Cells Occasional, Urine Bacteria None 05/04/19 14:53: POC Glucose 235 H <Supriya Vizcaino - 05/04/19 17:16> Temp Pulse Resp BP Pulse Ox 98.0 F 83 18 158/59 H 96 05/04/19 14:54 05/04/19 14:54 05/04/19 14:54 05/04/19 14:54 05/04/19 06:30 Laboratory Results - last 24 hr 05/04/19 06:30: WBC 8.3, RBC 4.74, Hgb 13.1, Hct 41.1, MCV 86.8, MCH 27.6, MCHC 31.8, RDW 14.4, Plt Count 529 H, MPV 7.1 L, Neut % (Auto) 65.4, Lymph % (Auto) 26.2, [place] % (Auto) 5.1, Eos % (Auto) 2.6, Baso % (Auto) 0.7, Neut # (Auto) 5.4, Lymph # (Auto) 2.2, Gordon # (Auto) 0.4, Eos # (Auto) 0.2, Baso # (Auto) 0.1, ESR 82 H 05/04/19 06:30: Sodium 139, Potassium 4.2, Chloride 103, Carbon Dioxide 27, Anion Gap 13.2, BUN 17, Creatinine 0.77, Estimated Creat Clear 58, Estimated GFR 73, Est GFR ( Amer) 89, Glucose 103, Calcium 9.0, C-Reactive Protein 1.8 H 05/04/19 06:30: POC Glucose 112 H 05/04/19 07:45: Urine Color Yellow, Urine Appearance Clear, Urine pH 5.5, Ur Specific [place] >= 1.030, Urine Protein 2+, Urine Glucose (UA) Negative, Urine Ketones Negative, Urine Blood 1+, Urine Nitrate Negative, Urine Bilirubin Neg ative, Urine Urobilinogen 0.2, Ur Leukocyte Esterase Negative, Urine RBC 5-10, Urine WBC 3-5, Ur Squamous Epith Cells Occasional, Urine Bacteria None 05/04/19 14:53: POC Glucose 235 H <Jessica Amezcua - 05/04/19 15:45> I & O for Last 24 hours: Intake & Output 05/01/19 05/02/19 05/03/19 05/04/19 23:59 23:59 23:59 23:59 Intake Total 2099 Balance 2099 <Supriya Vizcaino - 05/04/19 17:16> Intake & Output 05/02/19 05/03/19 05/04/19 05/05/19 11:59 11:59 11:59 11:59 Intake Total 2099 Balance 2099 <Jessica Amezcua - 05/04/19 15:45> - *Routine HEENT Exam Head: Present: normocephalic <Supriya Vizcaino - 05/04/19 17:23> Eye: Present: normal accommodation <Supriya Vizcaino - 05/04/19 17:23> ENT: Present: mucous membranes moist <Supriya Vizcaino - 05/04/19 17:23> - *Routine Neck Exam Present: supple. Absent: JVD <Supriya Vizcaino - 05/04/19 17:23> - Routine Chest/Breast/Axilla Exam Chest wall: Absent: tenderness <Supriya Vizcaino - 05/04/19 17:23> - *Routine Respiratory Exam Absent: accessory muscle use, respiratory distress <Supriya Vizcaino - 05/04/19 17:23> - *Routine Cardiovascular Exam Present: RRR. Absent: JVD <Supriya Vizcaino - 05/04/19 17:23> - *Routine Abdominal Exam Present: soft. Absent: obese <Supriya Vizcaino - 05/04/19 17:23> - *Routine Extremities Exam Present: normal capillary refill. Absent: calf tenderness <Supriya Vizcaino - 05/04/19 17:23> - *Routine Skin Exam Present: dry, warm <Supriya Vizcaino - 05/04/19 17:23> - *Routine Neurological Exam Present: oriented X3, vision grossly intact, hearing grossly intact <Supriya Vizcaino - 05/04/19 17:23> - Detailed Lower Extremity Exam Leg image: 1 - Surgery: 05/04/19. S/p left Charcot reconstruction, calcaneal non-union fracture reduction, hindfoot/midfoot stabilization (ankle, STJ, CC, medial column arthrodesis), LEBRON. Ex- Fix placement <Supriya Vizcaino - 05/04/19 17:23> Comments: LLE dressing and ex fix clean dry and intact. No calf or thigh pain noted b/l. CFT wnl. Light touch sensation and motor function decreased secondary to nerve block. <Jessica Amezcua - 05/04/19 17:47> Results - Labs Result Diagrams: 05/04/19 06:30 05/04/19 06:30 <Jessica Amezcua - 05/04/19 15:45> Labs: Abnormal lab results 05/04/19 05/04/19 05/04/19 Range/Units 06:30 06:30 06:30 Plt Count 529 H (142-424) K/mm3 MPV 7.1 L (7.4-10.4) fl ESR 82 H (0-30) mm/hr POC Glucose 112 H (70-110) C-Reactive Protein 1.8 H (0.0-0.9) mg/dL 05/04/19 Range/Units 14:53 Plt Count (142-424) K/mm3 MPV (7.4-10.4) fl ESR (0-30) mm/hr POC Glucose 235 H (70-110) C-Reactive Protein (0.0-0.9) mg/dL H & H 05/04/19 Range/Units 06:30 Hgb 13.1 (12.2-16.2) g/dL Hct 41.1 (37.0-47.0) % All other labs normal. <Supriya Vizcaino Juanita - 05/04/19 17:16> Abnormal lab results 05/04/19 05/04/19 05/04/19 Range/Units 06:30 06:30 06:30 Plt Count 529 H (142-424) K/mm3 MPV 7.1 L (7.4-10.4) fl ESR 82 H (0-30) mm/hr POC Glucose 112 H (70-110) C-Reactive Protein 1.8 H (0.0-0.9) mg/dL 05/04/19 Range/Units 14:53 Plt Count (142-424) K/mm3 MPV (7.4-10.4) fl ESR (0-30) mm/hr POC Glucose 235 H (70-110) C-Reactive Protein (0.0-0.9) mg/dL H & H 05/04/19 Range/Units 06:30 Hgb 13.1 (12.2-16.2) g/dL Hct 41.1 (37.0-47.0) % All other labs normal. <Jessica Amezcua - 05/04/19 15:45> Assessment and Plan (1) Depression Start date: 05/04/19 Current visit: No Status: Acute Category: Medical Code(s): F32.9 - Major depressive disorder, single episode, unspecified (2) GERD (gastroesophageal reflux disease) Current visit: No Status: Acute Category: Medical Code(s): K21.9 - Gastro-esophageal reflux disease without esophagitis (3) Anxiety Start date: 05/04/19 Current visit: No Status: Chronic Category: Medical Code(s): F41.9 - A nxiety disorder, unspecified (4) Hypertension Current visit: No Status: Chronic Qualifiers: Hypertension type: essential hypertension Qualified Code(s): I10 - Essential (primary) hypertension Category: Medical Code(s): I10 - Essential (primary) hypertension <Supriya Vizcaino - 05/04/19 17:16> (1) Fracture of left calcaneus with nonunion Current visit: Yes Status: Acute Category: Medical Code(s): S92.002K - Unspecified fracture of left calcaneus, subsequent encounter for fracture with nonunion (2) Fracture of left calcaneus with nonunion Current visit: Yes Status: Acute Category: Medical Code(s): S92.002K - Unspecified fracture of left calcaneus, subsequent encounter for fracture with nonunion (3) Equinus contracture of left ankle Current visit: Yes Status: Acute Category: Medical Code(s): M24.572 - Contracture, left ankle (4) Acquired equinus deformity of left foot Current visit: Yes Status: Acute Category: Medical Code(s): M21.6X2 - Other acquired deformities of left foot (5) Synovitis of left ankle Current visit: Yes Status: Acute Category: Medical Code(s): M65.9 - Synovitis and tenosynovitis, unspecified (6) Tear of peroneal tendon of left foot Current visit: Yes Status: Acute Category: Medical Code(s): S86.312A - Strain of muscle(s) and tendon(s) of peroneal muscle group at lower leg level, left leg, initial encounter (7) Charcot's joint, left ankle and foot Current visit: No Status: Chronic Category: Medical Code(s): M14.672 - Charcot's joint, left ankle and foot (8) Diabetes mellitus with diabetic neuropathy Current visit: No Status: Chronic Qualifiers: Diabetes mellitus type: type 2 Diabetes mellitus termite treater insulin use: without termite treater use Qualified Code(s): E11.40 - Type 2 diabetes mellitus with diabetic neuropathy, unspecified Category: Medical Code(s): E11.40 - Type 2 diabetes mellitus with diabetic neuropathy, unspecified (9) PAD (peripheral artery disease) Current visit: No Status: Chronic Category: Medical Code(s): I73.9 - Peripheral vascular disease, unspecified (10) Type 2 diabetes mellitus with Charcot's joint of left foot Current visit: No Status: Chronic Category: Medical Code(s): E11.610 - Type 2 diabetes mellitus with diabetic neuropathic arthropathy (11) Abnormal ankle brachial index (ARIK) Current visit: No Status: Acute Category: Medical Code(s): R68.89 - Other general symptoms and signs (12) Depression Start date: 05/04/19 Current visit: No Status: Acute Category: Medical Code(s): F32.9 - Major depressive disorder, single episode, unspecified (13) Diaphragmatic hernia Current visit: No Status: Acute Category: Medical Code(s): K44.9 - Diaphragmatic hernia without obstruction or gangrene (14) GERD (gastroesophageal reflux disease) Current visit: No Status: Acute Category: Medical Code(s): K21.9 - Gastro-esophageal reflux disease without esophagitis (15) Anxiety Start date: 05/04/19 Current visit: No Status: Chronic Category: Medical Code(s): F41.9 - Anxiety disorder, unspecified (16) Hypertension Current visit: No Status: Chronic Qualifiers: Hypertension type: essential hypertension Qualified Code(s): I10 - Essential (primary) hypertension Category: Medical Code(s): I10 - Essential (primary) hypertension (17) Hypothyroidism Current visit: No Status: Chronic Qualifiers: Category: Medical Code(s): E03.9 - Hypothyroidism, unspecified (18) Overweight Current visit: No Status: Chronic Category: Medical Code(s): E66.3 - Overweight <Jessica Amezcua - 05/04/19 17:47> - Assessment and plan all Dx Assessment and Plan for all problems:: Surgery: 05/04/19 S/p left Charcot reconstruction, calcaneal non-union fracture reduction, hindfoot/midfoot stabilization (ankle, STJ, CC, medial column arthrodesis), LEBRON Patient will be admitted for observation for pain control and medical mgmt per Dr. Solano-PCP. Patient is to maintain dressing and ex fix clean dry and intact. Ice behind the left knee and left lower extremity with DME assistance (walker, wheelchair). Obtain post op films, left calc, ankle and foot, 3 views. PT in the am for gait training and transitions. Plan to d/c to SNF when ready. <Jessica Amezcua - 05/04/19 17:47>
--- NOTE | 2019-05-04 16:28 | History & Physical Report ---
*Admission Date: 05/04/19 *Reason for consult:: Left DM Charcot fracture dislocation, non-union *History of present illness: Mrs. Narvaez is a 73 y/o DM female who presents for admission post op left Charcot calcaneus fracture dislocation, non-union repair. Patient initially fractured the left calcaneus October 2018. Patient was noncompliant and missed several appointments. She continued to weight-bear with and without the fracture boot. She did finally get an electric scooter. She states 02/15/19 she tripped and heard a pop along the outside of the left foot and ankle. She states it started to swell and she had pain. Patient did see Dr. Solano who ordered new x-rays. Patient then underwent an MRI 02/28/2019 which showed the calcaneal fracture as well as a subtalar dislocation. Since then patient has subsequently seen cardiology and had a left lower extremity runoff procedure. She presents for admission for SNF placement for postop ex-fix management, physical therapy and further care with activities of daily living as patient lives alone and will be strict nonweightbearing during the postoperative period. [facility] History I have reviewed the patient's past medical history: Yes Medical History: Reports:: Anxiety, Cancer, Depression, Diabetes Mellitus Type 2, Gastroesophageal Reflux Disease(GERD), Hypertension, Peripheral Artery Disease Denies:: Diabetes Mellitus Type 1, Internal Pacemaker, MRSA, Seizures *Have you ever received a pneumonia vaccine?: Yes *Have you received a flu vaccine this season?: Yes Other Medical History: Reports: Hypothyroidism. Denies: Blood Transfusion Reaction Anesthesia experience/problems:: none Laterality Cases: Bilateral: Tonsillectomy, Other Other Surgeries: Yes: Angiogram, Cholecystectomy, Hernia Repair, Thyroidectomy, Tubal Ligation. No: Pacemaker Amputation: No Fractures: Yes - *Social History Educational Level: Attended High School Smoking Status: Current every day smoker Tobacco Type: cigarettes # Packs/Day (cigarettes): 1 Alcohol Intake: never Substance Use Type: denies use *Occupational Status:: retired Housing: house Household Members: none *Travel in the last 8 weeks: None - Psychiatric History Pschychiatric History:: Reports:: Anxiety, Depression Family Hx:: Cancer, Diabetes, Stroke Review of Systems - Constitutional Denies fever(s) - Eyes Denies change in vision - ENT Denies dizziness, Denies difficulty swallowing - *Cardiovascular Denies chest pain, Denies shortness of breath - *Respiratory Denies cough, Denies shortness of breath - *Gastrointestinal Denies abdominal pain, Denies vomiting - *Genitourinary Denies abnormal periods - *Musculoskeletal Reports joint pain, Reports deformity, Reports joint swelling, Reports limited joint movement - Integumentary/Breasts Reports hair loss, Reports nail changes, Reports change in skin color - *Neurologic Reports tingling/numbness/burning sensations, Denies abnormal hearing, Denies behavioral changes - Psychiatric Denies behavioral changes - Endocrine Denies cold intolerance - Hematologic/Lymphatic Reports easy bleeding - Allergic/Immunologic Reports GI upset with certain foods Meds Home Medications Medication Instructions Recorded Confirmed Type glimepiride 4 mg tablet 4 mg PO DAILY #90 tab 02/15/19 05/04/19 Rx hydrocodone 7.5 mg-acetaminophen 1 tab PO TID PRN #63 tab 03/29/19 05/04/19 Rx 325 mg tablet omeprazole 20 mg tablet,delayed 20 mg PO DAILY #90 tab 04/27/19 05/04/19 Rx release Levothyroxine Sodium [Synthroid] 125 mcg PO DAILY 05/03/19 05/04/19 History Pramipexole Di-HCl [Pramipexole 1.5 mg PO QHS 05/03/19 05/04/19 History Dihydrochloride] chlordiazePOXIDE HCl 5 mg PO NEEDED PRN 05/04/19 05/04/19 History [Chlordiazepoxide HCl] Allergies Allergy/AdvReac Type Severity Reaction Status Date / Time ciprofloxacin [From Cipro] Allergy Severe Hives Verified 05/04/19 06:24 indomethacin Allergy Mild Vomiting Verified 05/04/19 06:24 levofloxacin [From Levaquin] Allergy Mild Unknown Verified 05/04/19 06:24 allergy reaction meloxicam [From Mobic] Allergy Mild Unknown Verified 05/04/19 06:24 allergy reaction prednisone Allergy Mild Unknown Verified 05/04/19 06:24 allergy reaction ropinirole Allergy Mild Unknown Verified 05/04/19 06:24 allergy reaction Sulfa (Sulfonamide Allergy Mild Rash Verified 05/04/19 06:24 Antibiotics) sulfamethoxazole Allergy Mild Rash Verified 05/04/19 06:24 [From Bactrim] trazodone Allergy Mild Unknown Verified 05/04/19 06:24 allergy reaction trimethoprim [From Bactrim] Allergy Mild Rash Verified 05/04/19 06:24 levothyroxine sodium Allergy Unknown Difficulty Verified 05/03/19 14:19 Breathing Exam Vital signs and Labs for Last 24 Hours: Temp Pulse Resp BP Pulse Ox 98.0 F 83 18 158/59 H 96 05/04/19 14:54 05/04/19 14:54 05/04/19 14:54 05/04/19 14:54 05/04/19 06:30 Laboratory Results - last 24 hr 05/04/19 06:30: WBC 8.3, RBC 4.74, Hgb 13.1, Hct 41.1, MCV 86.8, MCH 27.6, MCHC 31.8, RDW 14.4, Plt Count 529 H, MPV 7.1 L, Neut % (Auto) 65.4, Lymph % (Auto) 26.2, [place] % (Auto) 5.1, Eos % (Auto) 2.6, Baso % (Auto) 0.7, Neut # (Auto) 5.4, Lymph # (Auto) 2.2, [place] # (Auto) 0.4, Eos # (Auto) 0.2, Baso # (Auto) 0.1, ESR 82 H 05/04/19 06:30: Sodium 139, Potassium 4.2, Chloride 103, Carbon Dioxide 27, Anion Gap 13.2, BUN 17, Creatinine 0.77, Estimated Creat Clear 58, Estimated GFR 73, Est GFR ( Amer) 89, Glucose 103, Calcium 9.0, C-Reactive Protein 1.8 H 05/04/19 06:30: POC Glucose 112 H 05/04/19 07:45: Urine Color Yellow, Urine Appearance Clear, Urine pH 5.5, Ur Specific [place] >= 1.030, Urine Protein 2+, Urine Glucose (UA) Negative, Urine Ketones Negative, Urine Blood 1+, Urine Nitrate Negative, Urine Bilirubin Negative, Urine Urobilinogen 0.2, Ur Leukocyte Esterase Negative, Urine RBC 5- 10, Urine WBC 3-5, Ur Squamous Epith Cells Occasional, Urine Bacteria None 05/04/19 14:53: POC Glucose 235 H I & O for Last 24 hours: Intake & Output 05/01/19 05/02/19 05/03/19 05/04/19 23:59 23:59 23:59 23:59 Intake Total 2099 Balance 2099 - *Routine HEENT Exam Head: Present: normocephalic Eye: Present: normal accommodation ENT: Present: mucous membranes moist - *Routine Neck Exam Present: supple, full ROM. Absent: JVD - *Routine Respiratory Exam Absent: accessory muscle use, respiratory distress - *Routine Cardiovascular Exam Present: RRR. Absent: JVD - *Routine Abdominal Exam Present: soft. Absent: tenderness - *Routine Extremities Exam Present: normal capillary refill - *Routine Skin Exam Present: intact, dry - *Routine Neurological Exam Present: oriented X3, hearing grossly intact - Detailed Lower Extremity Exam Leg image: 1 - Surgery: 05/04/19= ex-fix placement. S/p left Charcot reconstruction, calcaneal non-union fracture reduction, hindfoot/midfoot stabilization (ankle, STJ, CC, medial column arthrodesis), LEBRON Results - Labs Result Diagrams: 05/04/19 06:30 05/04/19 06:30 Labs: Abnormal lab results 05/04/19 05/04/19 05/04/19 Range/Units 06:30 06:30 06:30 Plt Count 529 H (142-424) K/mm3 MPV 7.1 L (7.4-10.4) fl ESR 82 H (0-30) mm/hr POC Glucose 112 H (70-110) C-Reactive Protein 1.8 H (0.0-0.9) mg/dL 05/04/19 Range/Units 14:53 Plt Count (142-424) K/mm3 MPV (7.4-10.4) fl ESR (0-30) mm/hr POC Glucose 235 H (70-110) C-Reactive Protein (0.0-0.9) mg/dL H & H 05/04/19 Range/Units 06:30 Hgb 13.1 (12.2-16.2) g/dL Hct 41.1 (37.0-47.0) % All other labs normal.
--- NOTE | 2019-05-04 22:13 | History & Physical Report ---
*Admission Date: 05/04/19 *Chief complaint: foot pain *History of present illness: this wf who had lt foot surg this am - Left DM Charcot fracture dislocation, non-union <Jessica Amezcua - 05/04/19 15:45> *History of present illness: Mrs. Narvaez is a 73 y/o DM female who presents for admission post op left Charcot calcaneus fracture dislocation, non-union repair. Patient initially fractured the left calcaneus October 2018. Patient was noncompliant and missed several appointments. She continued to weight-bear with and without the fracture boot. She did finally get an electric scooter. She states 02/15/19 she tripped and heard a pop along the outside of the left foot and ankle. She states it started to swell and she had pain. Patient did see Dr. Solano who ordered new x-rays. Patient then underwent an MRI 02/28/2019 which showed the calcaneal fracture as well as a subtalar dislocation. Since then patient has subsequently seen cardiology and had a left lower extremity runoff procedure. She presents for admission for SNF placement for postop ex- fix management, physical therapy and further care with activities of daily living as patient lives alone and will be strict nonweightbearing during the postoperative period above per dr amezcua [facility] History I have reviewed the patient's past medical history: Yes Medical History: Reports:: Anxiety, Depression, Diabetes Mellitus Type 2, Gastroesophageal Reflux Disease(GERD), Hypertension, Peripheral Artery Disease Denies:: Cancer, Diabetes Mellitus Type 1, Internal Pacemaker, MRSA, Seizures *Have you ever received a pneumonia vaccine?: Yes *Have you received a flu vaccine this season?: Yes Other Medical History: Reports: Hypothyroidism. Denies: Blood Transfusion Reaction Anesthesia experience/problems:: none Laterality Cases: Bilateral: Tonsillectomy, Other Other Surgeries: Yes: Angiogram, Cholecystectomy, Hernia Repair, Thyroidectomy, Tubal Ligation. No: Pacemaker Amputation: No Fractures: Yes - *Social History Educational Level: Completed High School Smoking Status: Current every day smoker Tobacco Type: cigarettes # Packs/Day (cigarettes): 0 Alcohol Intake: never Substance Use Type: denies use *Occupational Status:: retired Housing: house Household Members: spouse *Travel in the last 8 weeks: None - Psychiatric History Pschychiatric History:: Reports:: Anxiety, Depression Family Hx:: No significant family history Review of Systems - Review of Systems Review of systems:: pertinent systems reviewed and negative unless documented below - Constitutional Denies fever(s), Denies headache(s) - Eyes Denies change in vision - ENT Denies headache(s), Denies sore throat - *Cardiovascular Denies chest pain, Denies shortness of breath - *Respiratory Denies cough, Denies shortness of breath, Denies coughing up blood - *Gastrointestinal Denies abdominal pain - *Genitourinary Denies blood in urine - *Musculoskeletal Reports abnormal walking, Reports joint pain, Reports deformity, Reports joint s welling, Reports limited joint movement - Integumentary/Breasts Denies rash - *Neurologic Reports tingling/numbness/burning sensations, Denies abnormal hearing, Denies behavioral changes - Psychiatric Denies anxiety Meds Home Medications Medication Instructions Recorded Confirmed Type glimepiride 4 mg tablet 4 mg PO DAILY #90 tab 02/15/19 05/04/19 Rx hydrocodone 7.5 mg-acetaminophen 1 tab PO TID PRN #63 tab 03/29/19 05/04/19 Rx 325 mg tablet omeprazole 20 mg tablet,delayed 20 mg PO DAILY #90 tab 04/27/19 05/04/19 Rx release Levothyroxine Sodium [Synthroid] 125 mcg PO DAILY 05/03/19 05/04/19 History Pramipexole Di-HCl [Pramipexole 1.5 mg PO QHS 05/03/19 05/04/19 History Dihydrochloride] chlordiazePOXIDE HCl 5 mg PO NEEDED PRN 05/04/19 05/04/19 History [Chlordiazepoxide HCl] Allergies Allergy/AdvReac Type Severity Reaction Status Date / Time ciprofloxacin [From Cipro] Allergy Severe Hives Verified 05/04/19 06:24 indomethacin Allergy Mild Vomiting Verified 05/04/19 06:24 levofloxacin [From Levaquin] Allergy Mild Unknown Verified 05/04/19 06:24 allergy reaction meloxicam [From Mobic] Allergy Mild Unknown Verified 05/04/19 06:24 allergy reaction prednisone Allergy Mild Unknown Verified 05/04/19 06:24 allergy reaction ropinirole Allergy Mild Unknown Verified 05/04/19 06:24 allergy reaction Sulfa (Sulfonamide Allergy Mild Rash Verified 05/04/19 06:24 Antibiotics) sulfamethoxazole Allergy Mild Rash Verified 05/04/19 06:24 [From Bactrim] trazodone Allergy Mild Unknown Verified 05/04/19 06:24 allergy reaction trimethoprim [From Bactrim] Allergy Mild Rash Verified 05/04/19 06:24 levothyroxine sodium Allergy Unknown Difficulty Verified 05/03/19 14:19 Breathing Exam Vital signs and Labs for Last 24 Hours: Temp Pulse Resp BP Pulse Ox 98.5 F 82 18 143/73 H 92 L 05/04/19 18:45 05/04/19 18:45 05/04/19 18:45 05/04/19 18:45 05/04/19 19:35 Laboratory Results - last 24 hr 05/04/19 06:30: WBC 8.3, RBC 4.74, Hgb 13.1, Hct 41.1, MCV 86.8, MCH 27.6, MCHC 31.8, RDW 14.4, Plt Count 529 H, MPV 7.1 L, Neut % (Auto) 65.4, Lymph % (Auto) 26.2, Emmet % (Auto) 5.1, Eos % (Auto) 2.6, Baso % (Auto) 0.7, Neut # (Auto) 5.4, Lymph # (Auto) 2.2, Emmet # (Auto) 0.4, Eos # (Auto) 0.2, Baso # (Auto) 0.1, ESR 82 H 05/04/19 06:30: Sodium 139, Potassium 4.2, Chloride 103, Carbon Dioxide 27, Anion Gap 13.2, BUN 17, Creatinine 0.77, Estimated Creat Clear 58, Estimated GFR 73, Est GFR ( Amer) 89, Glucose 103, Calcium 9.0, C-Reactive Protein 1.8 H 05/04/19 06:30: POC Glucose 112 H 05/04/19 07:45: Urine Color Yellow, Urine Appearance Clear, Urine pH 5.5, Ur Specific [place] >= 1.030, Urine Protein 2+, Urine Glucose (UA) Negative, Urine Ketones Negative, Urine Blood 1+, Urine Nitrate Negative, Urine Bilirubin Negative, Urine Urobilinogen 0.2, Ur Leukocyte Esterase Negative, Urine RBC 5- 10, Urine WBC 3-5, Ur Squamous Epith Cells Occasional, Urine Bacteria None 05/04/19 14:53: POC Glucose 235 H 05/04/19 18:07: POC Glucose 252 H 05/04/19 21:10: POC Glucose 321 H* I & O for Last 24 hours: Intake & Output 05/02/19 05/03/19 05/04/19 05/05/19 11:59 11:59 11:59 11:59 Intake Total 2099 Balance 2099 Weight 179 lb 1 oz - Constitutional no acute distress - *Routine HEENT Exam Head: Present: normocephalic Eye: Present: EOMI, PERRL ENT: Present: mucous membranes dry - *Routine Neck Exam Present: supple. Absent: JVD - *Routine Respiratory Exam Present: CTA bilaterally - *Routine Cardiovascular Exam Present: RRR, murmur, S4 - *Routine Abdominal Exam Present: soft - *Routine Extremities Exam Absent: edema - *Routine Skin Exam Present: intact - *Routine Neurological Exam Present: alert, oriented X3, CN II-XII intact - Routine Psychiatric Exam Present: normal affect Assessment and Plan (1) Fracture of left calcaneus with nonunion Current visit: Yes Status: Acute Category: Medical Code(s): S92.002K - Unspecified fracture of left calcaneus, subsequent encounter for fracture with nonunion (2) Fracture of left calcaneus with nonunion Current visit: Yes Status: Acute Category: Medical Code(s): S92.002K - Unspecified fracture of left calcaneus, subsequent encounter for fracture with nonunion (3) Equinus contracture of left ankle Current visit: Yes Status: Acute Category: Medical Code(s): M24.572 - Contracture, left ankle (4) Acquired equinus deformity of left foot Current visit: Yes Status: Acute Category: Medical Code(s): M21.6X2 - Other acquired deformities of left foot (5) Synovitis of left ankle Current visit: Yes Status: Acute Category: Medical Code(s): M65.9 - Synovitis and tenosynovitis, unspecified (6) Tear of peroneal tendon of left foot Current visit: Yes Status: Acute Category: Medical Code(s): S86.312A - Strain of muscle(s) and tendon(s) of peroneal muscle group at lower leg level, left leg, initial encounter (7) Charcot's joint, left ankle and foot Current visit: No Status: Chronic Category: Medical Code(s): M14.672 - Charcot's joint, left ankle and foot (8) Diabetes mellitus with diabetic neuropathy Current visit: No Status: Chronic Qualifiers: Diabetes mellitus type: type 2 Diabetes mellitus terminal superintendent insulin use: without care home use Qualified Code(s): E11.40 - Type 2 diabetes mellitus with diabetic neuropathy, unspecified Category: Medical Code(s): E11.40 - Type 2 diabetes mellitus with diabetic neuropathy, unspecified (9) PAD (peripheral artery disease) Current visit: No Status: Chronic Category: Medical Code(s): I73.9 - Peripheral vascular disease, unspecified (10) Type 2 diabetes mellitus with Charcot's joint of left foot Current visit: No Status: Chronic Category: Medical Code(s): E11.610 - Type 2 diabetes mellitus with diabetic neuropathic arthropathy (11) Abnormal ankle brachial index (ARIK) Current visit: No Status: Acute Category: Medical Code(s): R68.89 - Other general symptoms and signs (12) Depression Start date: 05/04/19 Current visit: No Status: Acute Category: Medical Code(s): F32.9 - Major depressive disorder, single episode, unspecified (13) Diaphragmatic hernia Current visit: No Status: Acute Category: Medical Code(s): K44.9 - Diaphragmatic hernia without obstruction or gangrene (14) GERD (gastroesophageal reflux disease) Current visit: No Status: Acute Category: Medical Code(s): K21.9 - Gastro- esophageal reflux disease without esophagitis (15) Anxiety Start date: 05/04/19 Current visit: No Status: Chronic Category: Medical Code(s): F41.9 - Anxiety disorder, unspecified (16) Hypertension Current visit: No Status: Chronic Qualifiers: Hypertension type: essential hypertension Qualified Code(s): I10 - Essential (primary) hypertension Category: Medical Code(s): I10 - Essential (primary) hypertension (17) Hypothyroidism Current visit: No Status: Chronic Qualifiers: Category: Medical Code(s): E03.9 - Hypothyroidism, unspecified (18) Overweight Current visit: No Status: Chronic Category: Medical Code(s): E66.3 - Overweight
--- NOTE | 2019-05-05 07:16 | Pharmacy Consult Notes ---
[facility] Pharmacy VTE Monitoring - Patient Demographics Admission date: 05/04/19 Report Date: 05/05/19 Time: 07:16 Allergies/Adverse Reactions: Patient Allergies ciprofloxacin [From Cipro] Allergy (Severe, Verified 05/04/19 06:24) Hives indomethacin Allergy (Mild, Verified 05/04/19 06:24) Vomiting levofloxacin [From Levaquin] Allergy (Mild, Verified 05/04/19 06:24) Unknown allergy reaction meloxicam [From Mobic] Allergy (Mild, Verified 05/04/19 06:24) Unknown allergy reaction prednisone Allergy (Mild, Verified 05/04/19 06:24) Unknown allergy reaction ropinirole Allergy (Mild, Verified 05/04/19 06:24) Unknown allergy reaction Sulfa (Sulfonamide Antibiotics) Allergy (Mild, Verified 05/04/19 06:24) Rash sulfamethoxazole [From Bactrim] Allergy (Mild, Verified 05/04/19 06:24) Rash trazodone Allergy (Mild, Verified 05/04/19 06:24) Unknown allergy reaction trimethoprim [From Bactrim] Allergy (Mild, Verified 05/04/19 06:24) Rash levothyroxine sodium Allergy (Unknown, Verified 05/03/19 14:19) Difficulty Breathing Height: 1.65 m Weight: 76.374 kg Patient Problems: Current Active Problems Fracture of left calcaneus with nonunion (Acute) Fracture of left calcaneus with nonunion (Acute) Equinus contracture of left ankle (Acute) Acquired equinus deformity of left foot (Acute) Synovitis of left ankle (Acute) Tear of peroneal tendon of left foot (Acute) - VTE Risk Labs: VTE Related Lab Results Hgb 13.1 g/dL (12.2-16.2) 05/04/19 06:30 Hct 41.1 % (37.0-47.0) 05/04/19 06:30 Plt Count 529 K/mm3 (142-424) H 05/04/19 06:30 BUN 17 mg/dL (7-18) 05/04/19 06:30 Creatinine 0.77 mg/dL (0.55-1.02) 05/04/19 06:30 Estimated Creat Clear 58 mL/min (50-200) 05/04/19 06:30 Was VTE Risk Assessment Performed: Yes VTE Score: 6 VTE Risk Level: Moderate Risk - Prophylaxis VTE Prophylaxis Ordered?: Yes Types of VTE Prophylaxis: IPCS Knee High Location of Applied Device: Right Leg
[2019-05-05 07:29] LABS: Basophils % 0.1 % (0.1-2.0); Eosinophils % 0.1 % (0.1-12.0); Hematocrit 29.5 % (37.0-47.0); Hemoglobin 9.4 g/dL (12.2-16.2); Lymphocytes % 14.8 % (10-50); Mean Corpuscular Volume 86.7 fl (81-99); Mean Platelet Volume 7.4 fl (7.4-10.4); Monocytes % 7.2 % (1.7-9.3); Neutrophils # 10.5 K/mm3 (1.8-7.8); Neutrophils % 77.7 % (37.0-80.0); Platelet Count 400 K/mm3 (142-424); Red Blood Count 3.41 M/mm3 (4.20-5.40); Red Cell Distribution Width 14.5 % (11.5-17.5); White Blood Count 13.5 K/mm3 (4.8-10.8)
[2019-05-05 07:39] LABS: Albumin Level 2.5 g/dL (3.4-5.0); Albumin/Globulin Ratio 0.8 (1.1-1.8); Anion Gap 11.7 mEq/L (5-15); Bilirubin,Total 0.1 mg/dL (0.2-1.0); Globulin 3.1 gm/dl (1.3-3.2); Total Protein,Serum 5.6 g/dL (6.4-8.2)
[2019-05-05 07:57] LABS: Calcium 7.9 mg/dL (8.5-10.1)
--- NOTE | 2019-05-05 08:56 | Progress Note ---
Subjective Date: 05/05/19 Time: 08:05 Principal diagnosis: Left Charcot, calcaneal fracture Interval history: Mrs. Narvaez is a 73 y/o DM female who was admitted 05/04/2019 after left Charcot calcaneus fracture dislocation, non-union repair. The patient lives alone and is a fall risk. She has struggled with complaints in terms of being nonweightbearing in the past. She was admitted per Dr. Solano for SNF placement for postop ex-fix management, physical therapy and further care with activities of daily living as patient lives alone and will be strict nonweightbearing during the postoperative period. Patient is sitting up comfortably in bed this morning. She denies nausea vomiting, fever chills, shortness of breath or chest pain. She reports some phlegm and coughing. She has not use the incentive spirometer. She denies pain to the left lower extremity. Her YOKASTA drain is intact. PN: Obj Ex Vital signs: Temp Pulse Resp BP Pulse Ox 98.6 F 78 16 164/62 H 95 05/05/19 08:00 05/05/19 08:00 05/05/19 08:00 05/05/19 08:00 05/05/19 08:00 - Constitutional no acute distress - Routine HEENT Exam Head: Present: normocephalic - Routine Respiratory Exam Absent: respiratory distress - Routine Cardiovascular Exam Present: RRR - Routine Abdominal Exam Present: soft. Absent: guarding - Routine Extremities Exam Present: edema, pulses intact, normal capillary refill, JIMMIE stockings. Absent: calf tenderness - Detailed Lower Extremity Exam Leg image: 1 - Left LE dressing and external fixation device clean dry and intact. CFT wnl. Light touch sensation and motor function decreased secondary to nerve block. No calf or thigh pain noted b/l. No pain to LLE. YOKASTA drain intact to lateral left foot. - Routine Skin Exam Present: dry. Absent: erythema - Routine Neurological Exam Present: moving all extremities - Urinary Catheter Management Colin Cath placed during this visit: yes, but has since been removed by the nurse Urethral indwelling: Yes Reason for continuing: Surgical procedure Insertion date: 05/04/19 Removal date: 05/05/19 Progress Note: A&P (1) Fracture of left calcaneus with nonunion Status: Acute Current Visit: Yes (2) Fracture of left calcaneus with nonunion Status: Acute Current Visit: Yes (3) Equinus contracture of left ankle Status: Acute Current Visit: Yes (4) Acquired equinus deformity of left foot Status: Acute Current Visit: Yes (5) Synovitis of left ankle Status: Acute Current Visit: Yes (6) Tear of peroneal tendon of left foot Status: Acute Current Visit: Yes (7) Charcot's joint, left ankle and foot Status: Chronic Current Visit: No (8) Diabetes mellitus with diabetic neuropathy Status: Chronic Current Visit: No (9) PAD (peripheral artery disease) Status: Chronic Current Visit: No (10) Type 2 diabetes mellitus with Charcot's joint of left foot Status: Chronic Current Visit: No (11) Abnormal ankle brachial index (ARIK) Status: Acute Current Visit: No (12) Depression Status: Acute Current Visit: No (13) Diaphragmatic hernia Status: Acute Current Visit: No (14) GERD (gastroesophageal reflux disease) Status: Acute Current Visit: No (15) Anxiety Status: Chronic Current Visit: No (16) Hypertension Status: Chronic Current Visit: No (17) Hypothyroidism Status: Chronic Current Visit: No (18) Overweight Status: Chronic Current Visit: No Assessment and Plan for All Diagnoses:: Surgery: 05/04/19 S/p left Charcot reconstruction, calcaneal non-union fracture reduction, hindf oot/midfoot stabilization (ankle, STJ, CC, medial column arthrodesis), LEBRON POD #1 1. Patient admitted for SNF placement and medical mgmt per Dr. Solano-PCP. 2. Foot and Ankle Surgery consulted for left Charcot mgmt. 3. Patient is to maintain dressing and ex fix clean dry and intact. 4. Ice/polar pack behind the left knee. Check skin for ice/cold blister, skin and color changes. Decreased ice time if symptoms noted. May use ice consistently throughout the day if there is no problem with the skin. 5. Elevate the LLE on 2 pillows. 6. Suspend right heel off pillow. Discussed heel ulcer prevention. 7. Strict NWB to left lower extremity with DME assistance (walker, wheelchair). 8. PT in the am for gait training and transitions. Farshad came to evaluate the patient, while I was in the room 9. Continue incentive spirometer usage. 10. YOKASTA drain mgmt. Plan to pull drain tomorrow. 11. Education: lovenox 12. Discussed smoking cessation and the use of nicotine patches. We discussed smoking cessation education for 5-10 minutes. I will order the nicotine patches for the patient. She will try them in the hospital prior to being discharged to the SNF. 13. Rx ordered for Percocet 7.5/325, Motrin 600mg, Zofran, Lovenox, Keflex 500mg. 14. Plan to d/c to SNF when ready. SNF orders: 1. Strict NWB to LLE with wheelchair or walker 2. Will need physical therapy for gait training and transitioning 3. Maintain dressing clean dry and intact to the left lower extremity 4. We will plan for SNF dressing changes starting next week to the external fixation device (will need to be changed twice weekly): -Remove all dressings. Cleanse the pin sites and skin with chlorhexidine sticks. Xeroform applied to the pin sites and the surgical incisions. Then cover with cut 4 x 4's to each pin site and surgical incisions. Followed by 2 or 3 inch Loni to secure the gauze to the pins. May cover the entire device with 6" Jesús bandages. 5. Smoking cessation 6. Elevate the LLE on 2 pillows. Use polar pack behind left knee 7. Suspend right heel off pillow (heel ulcer prevention) 8. Patient will need to see me weekly for 4 weeks
--- NOTE | 2019-05-05 09:00 | Progress Note ---
[facility] Anesthesia Record Part II Discharge Time: 15:18 Destination: Medical Surgical Department PACU nurse assessment reviewed?: Yes Patient Condition:: Good Anesthesia Complications:: None Swallowing reflex intact?: Yes Cyanosis?: No Blood Pressure: 168/65 Pulse Rate: 83 Temperature: 98.0 F Mental Status: Alert & Oriented Pain level:: 0 Nausea and/or vomitting:: None Intake, IV Amount: 0
--- NOTE | 2019-05-05 09:20 | Progress Note ---
Internal Medicine - PN: Subj *Date: 05/05/19 *Time: 09:14 Interval history: pt sitting up in chair, voiced no c/o. Exam Vital signs and Labs for Last 24 Hours: Temp Pulse Resp BP Pulse Ox 98.0 F 83 16 168/65 H 95 05/05/19 08:59 05/05/19 08:59 05/05/19 08:00 05/05/19 08:59 05/05/19 08:00 Laboratory Results - last 24 hr 05/04/19 07:45: Urine Color Yellow, Urine Appearance Clear, Urine pH 5.5, Ur Spe cific [place] >= 1.030, Urine Protein 2+, Urine Glucose (UA) Negative, Urine Ketones Negative, Urine Blood 1+, Urine Nitrate Negative, Urine Bilirubin Negative, Urine Urobilinogen 0.2, Ur Leukocyte Esterase Negative, Urine RBC 5- 10, Urine WBC 3-5, Ur Squamous Epith Cells Occasional, Urine Bacteria None 05/04/19 14:53: POC Glucose 235 H 05/04/19 18:07: POC Glucose 252 H 05/04/19 21:10: POC Glucose 321 H* 05/05/19 05:35: POC Glucose 140 H 05/05/19 07:00: WBC 13.5 H D, RBC 3.41 L D, Hgb 9.4 L, Hct 29.5 L, MCV 86.7, MCH 27.7, MCHC 32.0, RDW 14.5, Plt Count 400, MPV 7.4, Neut % (Auto) 77.7, Lymph % (Auto) 14.8, Hunt % (Auto) 7.2, Eos % (Auto) 0.1, Baso % (Auto) 0.1, Neut # (Auto) 10.5 H, Lymph # (Auto) 2.0, Hunt # (Auto) 1.0, Eos # (Auto) 0.0, Baso # (Auto) 0.0 05/05/19 07:00: Sodium 139, Potassium 4.7, Chloride 104, Carbon Dioxide 28, Anion Gap 11.7, BUN 28 H D, Creatinine 1.02 D, Estimated Creat Clear 58, Estimated GFR 53 L, Est GFR ( Amer) 64 D, Glucose 156 H, Calcium 7.9 L D , Total Bilirubin 0.1 L, AST 35, ALT 14, Alkaline Phosphatase 87, Total Protein 5.6 L D, Albumin 2.5 L, Globulin 3.1, Albumin/Globulin Ratio 0.8 L I & O for Last 24 hours: Intake & Output 05/02/19 05/03/19 05/04/19 05/05/19 11:59 11:59 11:59 11:59 Intake Total 2100 / 2100 Output Total 1320 / 1320 Balance 780 / 780 Weight 168 lb 6 oz - Constitutional no acute distress - *Routine HEENT Exam Head: Present: normocephalic Eye: Present: PERRL ENT: Present: mucous membranes moist - *Routine Neck Exam Present: supple. Absent: lymphadenopathy - *Routine Respiratory Exam Present: CTA bilaterally - *Routine Cardiovascular Exam Present: RRR - *Routine Abdominal Exam Present: soft, normoactive bowel sounds. Absent: tenderness - *Routine Extremities Exam Present: normal capillary refill. Absent: cyanosis, clubbing, edema Comments: left lower ext dressing and splint in place - *Routine Skin Exam Present: warm. Absent: rash - *Routine Neurological Exam Present: alert, oriented X3 - Routine Psychiatric Exam Present: normal affect Assessment and Plan (1) Fracture of left calcaneus with nonunion Current visit: Yes Status: Acute Category: Medical Code(s): S92.002K - Unspecified fracture of left calcaneus, subsequent encounter for fracture with nonunion (2) Fracture of left calcaneus with nonunion Current visit: Yes Status: Acute Category: Medical Code(s): S92.002K - Unspecified fracture of left calcaneus, subsequent encounter for fracture with nonunion (3) Equinus contracture of left ankle Current visit: Yes Status: Acute Category: Medical Code(s): M24.572 - Contracture, left ankle (4) Acquired equinus deformity of left foot Current visit: Yes Status: Acute Category: Medical Code(s): M21.6X2 - Other acquired deformities of left foot (5) Synovitis of left ankle Current visit: Yes Status: Acute Category: Medical Code(s): M65.9 - Synovitis and tenosynovitis, unspecified (6) Tear of peroneal tendon of left foot Current visit: Yes Status: Acute Category: Medical Code(s): S86.312A - Strain of muscle(s) and tendon(s) of peroneal muscle group at lower leg level, left leg, initial encounter (7) Charcot's joint, left ankle and foot Current visit: No Status: Chronic Category: Medical Code(s): M14.672 - Charcot's joint, left ankle and foot (8) Diabetes mellitus with diabetic neuropathy Current visit: No Status: Chronic Qualifiers: Qualified Code(s): E11.40 - Type 2 diabetes mellitus with diabetic neuropathy, unspecified Category: Medical Code(s): E11.40 - Type 2 diabetes mellitus with diabetic neuropathy, unspecified (9) PAD (peripheral artery disease) Current visit: No Status: Chronic Category: Medical Code(s): I73.9 - Peripheral vascular disease, unspecified (10) Type 2 diabetes mellitus with Charcot's joint of left foot Current visit: No Status: Chronic Category: Medical Code(s): E11.610 - Type 2 diabetes mellitus with diabetic neuropathic arthropathy (11) Abnormal ankle brachial index (ARIK) Current visit: No Status: Acute Category: Medical Code(s): R68.89 - Other general symptoms and signs (12) Depression Start date: 05/04/19 Current visit: No Status: Acute Category: Medical Code(s): F32.9 - Major depressive disorder, single episode, unspecified (13) Diaphragmatic hernia Current visit: No Status: Acute Category: Medical Code(s): K44.9 - Diaphragmatic hernia without obstruction or gangrene (14) GERD (gastroesophageal reflux disease) Current visit: No Status: Acute Category: Medical Code(s): K21.9 - Gastro- esophageal reflux disease without esophagitis (15) Anxiety Start date: 05/04/19 Current visit: No Status: Chronic Category: Medical Code(s): F41.9 - Anxiety disorder, unspecified (16) Hypertension Current visit: No Status: Chronic Qualifiers: Qualified Code(s): I10 - Essential (primary) hypertension Category: Medical Code(s): I10 - Essential (primary) hypertension (17) Hypothyroidism Current visit: No Status: Chronic Qualifiers: Category: Medical Code(s): E03.9 - Hypothyroidism, unspecified (18) Overweight Current visit: No Status: Chronic Category: Medical Code(s): E66.3 - Overweight - Assessment and plan all Dx Assessment and Plan for all problems:: rounded with jonathan all orders per jonathan
[2019-05-06 07:28] LABS: Anion Gap 11.4 mEq/L (5-15); Calcium 7.8 mg/dL (8.5-10.1)
[2019-05-06 07:31] LABS: Basophils % 0.2 % (0.1-2.0); Eosinophils # 0.1 K/mm3 (0.0-0.4); Eosinophils % 0.9 % (0.1-12.0); Hematocrit 28.8 % (37.0-47.0); Hemoglobin 9.3 g/dL (12.2-16.2); Lymphocytes # 1.9 K/mm3 (0.7-4.5); Lymphocytes % 19.4 % (10-50); Mean Corpuscular HGB Conc 32.3 g/dL (31.8-35.4); Mean Corpuscular Volume 86.6 fl (81-99); Mean Platelet Volume 7.5 fl (7.4-10.4); Monocytes # 0.6 K/mm3 (0.1-1.0); Monocytes % 5.7 % (1.7-9.3); Neutrophils # 7.4 K/mm3 (1.8-7.8); Neutrophils % 73.8 % (37.0-80.0); Platelet Count 403 K/mm3 (142-424); Red Blood Count 3.32 M/mm3 (4.20-5.40); Red Cell Distribution Width 14.5 % (11.5-17.5)
--- NOTE | 2019-05-06 09:14 | Discharge Summary ---
General - General Admission date:: 05/04/19 Discharge date: 05/06/19 HPI HPI: this wf who had lt foot surg this am - Left DM Charcot fracture dislocation, non-union <Jessica Amezcua - 05/04/19 15:45> *History of present illness: Mrs. Narvaez is a 73 y/o DM female who presents for admission post op left Charcot calcaneus fracture dislocation, non-union repair. Patient initially fractured the left calcaneus October 2018. Patient was noncompliant and missed several appointments. She continued to weight-bear with and without the fracture boot. She did finally get an electric scooter. She states 02/15/19 she tripped and heard a pop along the outside of the left foot and ankle. She states it started to swell and she had pain. Patient did see Dr. Solano who ordered new x-rays. Patient then underwent an MRI 02/28/2019 which showed the calcaneal fracture as well as a subtalar dislocation. Since then patient has subsequently seen cardiology and had a left lower extremity runoff procedure. She presents for admission for SNF placement for postop ex- fix management, physical therapy and further care with activities of daily living as patient lives alone and will be strict nonweightbearing during the postoperative period above per dr amezcua Hospital Course Hospital Course: Surgery: 05/04/19 S/p left Charcot reconstruction, calcaneal non-union fracture reduction, hindfoot/midfoot stabilization (ankle, STJ, CC, medial column arthrodesis), LEBRON POD #1 1. Patient admitted for SNF placement and medical mgmt per Dr. Solano-PCP. 2. Foot and Ankle Surgery consulted for left Charcot mgmt. 3. Patient is to maintain dressing and ex fix clean dry and intact. 4. Ice/polar pack behind the left knee. Check skin for ice/cold blister, skin an d color changes. Decreased ice time if symptoms noted. May use ice consistently throughout the day if there is no problem with the skin. 5. Elevate the LLE on 2 pillows. 6. Suspend right heel off pillow. Discussed heel ulcer prevention. 7. Strict NWB to left lower extremity with DME assistance (walker, wheelchair). 8. PT in the am for gait training and transitions. Farshad came to evaluate the patient, while I was in the room 9. Continue incentive spirometer usage. 10. YOKASTA drain mgmt. Plan to pull drain tomorrow. 11. Education: lovenox 12. Discussed smoking cessation and the use of nicotine patches. We discussed smoking cessation education for 5-10 minutes. I will order the nicotine patches for the patient. She will try them in the hospital prior to being discharged to the SNF. 13. Rx ordered for Percocet 7.5/325, Motrin 600mg, Zofran, Lovenox, Keflex 500mg. 14. Plan to d/c to SNF when ready. SNF orders: 1. Strict NWB to LLE with wheelchair or walker 2. Will need physical therapy for gait training and transitioning 3. Maintain dressing clean dry and intact to the left lower extremity 4. We will plan for SNF dressing changes starting next week to the external fixation device (will need to be changed twice weekly): -Remove all dressings. Cleanse the pin sites and skin with chlorhexidine sticks. Xeroform applied to the pin sites and the surgical incisions. Then cover with cut 4 x 4's to each pin site and surgical incisions. Followed by 2 or 3 inch Loni to secure the gauze to the pins. May cover the entire device with 6" Jesús bandages. 5. Smoking cessation 6. Elevate the LLE on 2 pillows. Use polar pack behind left knee 7. Suspend right heel off pillow (heel ulcer prevention) 8. Patient will need to see me weekly for 4 weeks Objective Vital signs: Temp Pulse Resp BP Pulse Ox 98.5 F 71 20 177/54 H 93 L 05/06/19 07:33 05/06/19 07:33 05/06/19 07:33 05/06/19 07:33 05/06/19 07:33 no acute distress - *Routine HEENT Exam Head: Present: normocephalic Eye: Present: PERRL ENT: Present: mucous membranes moist - *Routine Neck Exam Present: supple - *Routine Respiratory Exam Present: CTA bilaterally - *Routine Cardiovascular Exam Present: RRR - *Routine Abdominal Exam Present: soft, normoactive bowel sounds. Absent: tenderness - *Routine Extremities Exam Present: normal capillary refill. Absent: cyanosis, clubbing, edema Comments: Dressing and external fixator to left lower extremity drains in place - *Routine Skin Exam Present: warm. Absent: rash Comments: Jesús wrap and external fixator with drains to left lower extremity - *Routine Neurological Exam Present: alert, oriented X3 - Routine Psychiatric Exam Present: normal affect Results Labs on day of discharge: Labs from last 24 hours 05/06/19 05/06/19 05/06/19 06:42 06:42 06:07 WBC 10.0 D RBC 3.32 L Hgb 9.3 L Hct 28.8 L MCV 86.6 MCH 28.0 MCHC 32.3 RDW 14.5 Plt Count 403 MPV 7.5 Neut % (Auto) 73.8 Lymph % (Auto) 19.4 Parker % (Auto) 5.7 Eos % (Auto) 0.9 Baso % (Auto) 0.2 Neut # (Auto) 7.4 Lymph # (Auto) 1.9 Parker # (Auto) 0.6 Eos # (Auto) 0.1 Baso # (Auto) 0.0 Sodium 142 Potassium 4.4 Chloride 108 H Carbon Dioxide 27 Anion Gap 11.4 BUN 17 D Creatinine 0.78 D Estimated Creat Clear 60 Estimated GFR 72 Est GFR ( Amer) 87 D Glucose 81 D POC Glucose 85 Calcium 7.8 L 05/05/19 20:17 WBC RBC Hgb Hct MCV MCH MCHC RDW Plt Count MPV Neut % (Auto) Lymph % (Auto) Parker % (Auto) Eos % (Auto) Baso % (Auto) Neut # (Auto) Lymph # (Auto) Parker # (Auto) Eos # (Auto) Baso # (Auto) Sodium Potassium Chloride Carbon Dioxide Anion Gap BUN Creatinine Estimated Creat Clear Estimated GFR Est GFR ( Amer) Glucose POC Glucose 166 H Calcium Preliminary micro results at discharge 05/04/19 14:00 Surgical Biopsy Culture - Preliminary Foot,Left NO GROWTH AFTER 24 HOURS - Additional Comments Rounded with Dr. 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 Status: Chronic (11) Abnormal ankle brachial index (ARIK) Status: Acute (12) Depression Status: Acute (13) Diaphragmatic hernia Status: Acute (14) GERD (gastroesophageal reflux disease) Status: Acute (15) Anxiety Status: Chronic (16) Hypertension Status: Chronic (17) Hypothyroidism Status: Chronic (18) Overweight Status: Chronic Discharge Plan - Patient Discharge Instructions ACTIVITY: Continue current activity DIET: continue same diet Patient Instructions: DI for Surgical Site Infection - Follow up Plan Follow up with: Jessica Amezcua DPM [Staff Physician] - 05/10/19 11:20 am Randal Solano MD [Staff Physician] - 05/09/19 Disposition: er [facility] Home Medications: Home Medications Medication Instructions Recorded Confirmed Type glimepiride 4 mg tablet 4 mg PO DAILY #90 tab 02/15/19 05/04/19 Rx hydrocodone 7.5 mg-acetaminophen 1 tab PO TID PRN #63 tab 03/29/19 05/04/19 Rx 325 mg tablet omeprazole 20 mg tablet,delayed 20 mg PO DAILY #90 tab 04/27/19 05/04/19 Rx release Levothyroxine Sodium [Synthroid] 125 mcg PO DAILY 05/03/19 05/04/19 History Pramipexole Di-HCl [Pramipexole 1.5 mg PO HS 05/03/19 05/05/19 History Dihydrochloride] chlordiazePOXIDE HCl 5 mg PO NEEDED PRN 05/04/19 05/04/19 History [Chlordiazepoxide HCl] cephalexin 500 mg capsule 500 mg PO Q12H 21 Days #42 cap 05/05/19 Rx enoxaparin 40 mg/0.4 mL 40 mg SQ QDAY 42 Days #16.8 ml 05/05/19 Rx subcutaneous syringe hydrocodone 7.5 mg-acetaminophen 1 tab PO Q4-6H PRN #30 tab 05/05/19 Rx 325 mg tablet nicotine 1 patch TRANSDERMAL QDAY #56 patch 05/05/19 Rx 21mg/24hr-14mg/24hr-7mg/24hr daily transderm patch,sequential ondansetron 4 mg disintegrating 4 mg PO Q6H #30 tab 05/05/19 Rx tablet Prescriptions/Medication Reconciliation: New Insulin Lispro [HumaLOG 100 units/mL 3mL vial (SSI)] 0 unit SQ ACHS ml Continued glimepiride 4 mg tablet 4 mg PO DAILY #90 tab hydrocodone 7.5 mg-acetaminophen 325 mg tablet 1 tab PO TID PRN #63 tab PRN Reason: pain hydrocodone 7.5 mg-acetaminophen 325 mg tablet 1 tab PO Q4-6H PRN #30 tab PRN Reason: pain omeprazole 20 mg tablet,delayed release 20 mg PO DAILY #90 tab ondansetron 4 mg disintegrating tablet 4 mg PO Q6H #30 tab enoxaparin 40 mg/0.4 mL subcutaneous syringe 40 mg SQ QDAY 42 Days #16.8 ml nicotine 21mg/24hr-14mg/24hr-7mg/24hr daily transderm patch,sequential 1 patch TRANSDERMAL QDAY #56 patch cephalexin 500 mg capsule 500 mg PO Q12H 21 Days #42 cap chlordiazePOXIDE HCl [Chlordiazepoxide HCl] 5 mg PO NEEDED PRN PRN Reason: nerves Pramipexole Di-HCl [Pramipexole Dihydrochloride] 1.5 mg PO HS Levothyroxine Sodium [Synthroid] 125 mcg PO DAILY - Problem Reconciliation Problems Reviewed?: Yes
== END 2019-05-06 15:35 ==
LOC: 2ND 06:05 → OR 06:05
PROVIDERS: ADMIT Emergency Medicine; ATTEND Emergency Medicine
CPT/HCPCS: 36415; 73610; 73620; 73650; 76000; 80048; 80053; 81001; 82962; 85025; 85651; 86140; 87070; 87205; 88307; 88311; 96374; 97162; C1713; C1762; C1776; G0378; J2405

== ENCOUNTER → 2019-06-13 15:33 | Outpatient (CLI) | payer MEDICARE, OTHER, MEDICAID, SELFPAY ==
--- NOTE | 2019-06-13 15:48 | XR_ITS ---
PROCEDURE: XR FOOT WT BEARING LT 3V CLINICAL INDICATION: post-op Follow-up surgery COMPARISON: XR FOOT WT BEARING LT 3V from 12/29/2018 XR FOOT LT 2V from 02/15/2019 XR FOOT LT 2V from 05/04/2019 XR FOOT LT 2V from 05/04/2019 XR ANKLE LT MIN 3V from 05/04/2019 XR ANKLE WT BEARING LT MIN 3V from 06/13/2019 FINDINGS: Status post Foot fusion with external fixator in place and multiple stabilizing screws much of the foot and ankle is obscured by the overlying external fixator. There is an old fracture of the distal shaft of the fibula with callus formation. Soft tissue calcification is present lateral to the distal fibula. There are 3 screws extending from the distal tibia into the talus as before with a long screw from the distal aspect of the 1st metatarsal into the medial cuneiform and navicular into the talus. Cannot adequately assess the talocalcaneal area due to the overlying external fixator. There appears to be good alignment. IMPRESSION: Overall no change in the extensive postsurgical changes of the midfoot and ankle with fusion with external fixator in place as described above Dictated by: Parish Crystal MD 06/13/2019 17:05 Electronically signed by Parish Crystal MD in [place] 06/13/2019 17:05
--- NOTE | 2019-06-13 16:06 | XR_ITS ---
PROCEDURE: XR CHEST 2V CLINICAL HISTORY: cough COMPARISON: CXR CHEST(2 VIEWS-NOT PORTABLE) from 07/12/2012 XR CHEST 2V from 03/14/2019 XR CHEST AP from 03/31/2019 FINDINGS: There is mild cardiomegaly without failure. The lungs are clear without infiltrates, suspicious nodules, or pleural effusions. There are chronic changes in the lung bases consistent with pericardial fat pads. No acute bony anomaly IMPRESSION: Cardiomegaly, no acute finding Dictated by: Parish Crystal MD 06/13/2019 17:01 Electronically signed by Parish Crystal MD in [place] 06/13/2019 17:01
== END ==
PROVIDERS: PCP Emergency Medicine; Visit Provider Podiatrist
DX: Z98.890 Other specified postprocedural states (principal); R05 Cough; M25.572 Pain in left ankle and joints of left foot
CPT/HCPCS: 71046; 73610; 73630

== ENCOUNTER → 2019-07-04 10:20 | Outpatient (CLI) | payer MEDICARE, OTHER, MEDICAID, SELFPAY ==
--- NOTE | 2019-07-04 11:01 | XR_ITS ---
PROCEDURE: XR FOOT LT MIN 3V CLINICAL INDICATION: S/P SURGERY Follow-up ORIF COMPARISON: XR FOOT LT 2V from 02/15/2019 XR FOOT LT 2V from 05/04/2019 XR FOOT LT 2V from 05/04/2019 XR FOOT WT BEARING LT 3V from 06/13/2019 XR ANKLE WT BEARING LT MIN 3V from 07/04/2019 FINDINGS: The exam is limited technically due to the overlying external fixator which obscures the underlying bony elements and results in underpenetration the bones. The skin clips have been removed. No significant change in the external fixator and extensive postsurgical changes with multiple screws in place with fusion of the ankle joint, talocalcaneal joint, calcaneocuboid joint, and long lag screw from the distal aspect of the 1st metatarsal into the medial cuneiform navicular and distal talus. Postsurgical changes are present involving the distal tibia and talus. There is a healing fracture of the distal shaft of the fibula IMPRESSION: Good alignment status post foot and ankle fusion with external fixator in place Dictated by: Parish Crystal MD 07/04/2019 11:39 Electronically signed by Parish Crystal MD in [place] 07/04/2019 11:39
== END ==
PROVIDERS: PCP Emergency Medicine; Visit Provider Podiatrist
DX: S92.015 Nondisplaced fracture of body of left calcaneus (principal); S82.832D Other fracture of upper and lower end of left fibula, subsequent encounter for closed fracture with routine healing; E11.610 Type 2 diabetes mellitus with diabetic neuropathic arthropathy; Z98.890 Other specified postprocedural states
CPT/HCPCS: 73610; 73630

== ENCOUNTER → 2019-07-18 13:22 | Outpatient (CLI) | payer MEDICARE, OTHER, MEDICAID, SELFPAY ==
--- NOTE | 2019-07-18 13:29 | XR_ITS ---
PROCEDURE: XR CHEST 2V CLINICAL HISTORY: HTN,DM II COMPARISON: XR CHEST 2V from 03/14/2019 XR CHEST AP from 03/31/2019 XR CHEST 2V from 06/13/2019 FINDINGS: There is cardiomegaly without failure. The lungs are clear without infiltrates, suspicious nodules, or pleural effusions. There are chronic changes in the left lung base. IMPRESSION: Cardiomegaly. No change with no acute finding Dictated by: Parish Crystal MD 07/18/2019 13:58 Electronically signed by Parish Crystal MD in [place] 07/18/2019 13:58
--- NOTE | 2019-07-18 14:04 | ECG_ITS ---
APPROVED REPORT Exam: Resting ECG HR:75 bpm ECG Measurements Heart Rate 75 AXES AL 168 P 74 QRSd 82 QRS 84 QT 380 T 57 QTc 424 <Conclusion> Normal sinus rhythm Normal ECG Electronically signed by : John Acosta, 07/19/2019 14:31:36
== END ==
PROVIDERS: PCP Physician Assistant; Visit Provider Podiatrist
DX: Z01.818 Encounter for other preprocedural examination (principal); S92.015A Nondisplaced fracture of body of left calcaneus, initial encounter for closed fracture; S82.832A Other fracture of upper and lower end of left fibula, initial encounter for closed fracture
CPT/HCPCS: 71046; 93005

== ENCOUNTER 2019-07-26 06:24 | Day surgery (SDC) | payer MEDICARE, OTHER, MEDICAID, SELFPAY ==
[2019-07-20 15:06] VITALS: BMI 37.0
[2019-07-26] VITALS (17 sets, daily range): BP systolic 126–176; BP diastolic 55–87; PULSE 74–82; RESP 12–20; TEMP 36.5–43; O2SAT 90–95
[2019-07-26 07:11] LABS: Adenovirus,PCR Not Detected (NotDetected); Bordetella Pertussis Not Detected (NotDetected); Chlamydophila Pneumoniae, PCR Not Detected (NotDetected); Coronavirus 19, PCR Not Detected (NotDetected); Coronavirus 229E Not Detected (NotDetected); Coronavirus NL63 Not Detected (NotDetected); Coronavirus OC43 Not Detected (NotDetected); Coronovirus HKU1,PCR Not Detected (NotDetected); Human Metapneumovirus Not Detected (NotDetected); Influenza A, PCR Not Detected (NotDetected); Influenza AH1, 2009 Not Detected (NotDetected); Influenza AH1, PCR Not Detected (NotDetected); Influenza AH3,PCR Not Detected (NotDetected); Influenza B, PCR Not Detected (NotDetected); Mycoplasma Pneumoniae, PCR Not Detected (NotDected); Parainfluenza 1, PCR Not Detected (NotDetected); Parainfluenza 2, PCR Not Detected (NotDetected); Parainfluenza 3, PCR Not Detected (NotDetected); Parainfluenza 4, PCR Not Detected (NotDetected); Respiratory Syncytial Virus Not Detected (NotDetected); Rhinovirus/Enterovirus Not Detected (NotDetected)
[2019-07-26 07:27] LABS: POC Glucose,Bedside 140 (70-110)
--- NOTE | 2019-07-26 07:54 | HMH.ANESCL ---
[facility] Anesthesia Checklist - Patient Identification Patient Identification: Arm Band, Verbal (Name & ) - Structural Data Admitted From: Home Planned Operative Procedure/s: Left Charcot external fixator removal Consent for Planned Operative Procedure(s) Verified: Yes Verified Documents: Surgical Consent, History and Physical - NPO Status Verified Time NPO: 00:00 - Additional verifications Fingerstick Blood Glucose: 140 Anesthesia Reactions: No Hx Blood Transfusions: No Blood Transfusion Reaction: No - Airway Assessment C-Spine Mobility Assessed: Yes TMJ Mobility Assessed: Yes Dentition: Poor Dentition - Neurological Assessment Level of Consciousness: Awake, Alert, Appropriate, Follows Commands Hx Seizures: No Numbness or tingling in extremities: Yes - Anesthesia Plan Anesthesia Risk discussed: Yes Anesthesia Plan: Verified ASA Class: III Anesthesia Type: General [facility] History I have reviewed the patient's past medical history: Yes Medical History: Reports:: Diabetes Mellitus Type 2, Gastroesophageal Reflux Disease(GERD), Hypertension, Peripheral Artery Disease Denies:: Cancer, Diabetes Mellitus Type 1, Internal Pacemaker, MRSA, Seizures *Have you ever received a pneumonia vaccine?: Yes *Have you received a flu vaccine this season?: Yes Other Medical History: Reports: Hypothyroidism. Denies: Blood Transfusion Reaction Comment:: cardiomegaly, RLS Anesthesia experience/problems:: none Laterality Cases: Bilateral: Cataract, Tonsillectomy, Other Other Surgeries: Yes: Angiogram, Cholecystectomy, Hernia Repair, Thyroidectomy, Tubal Ligation, Other. No: Pacemaker Amputation: No Fractures: Yes (LEFT FOOT) - *Social History Educational Level: Attended High School Smoking Status: Former smoker (03/2019) Tobacco Type: cigarettes # Packs/Day (cigarettes): 0 Smoking End Date: 03/23/2018 Alcohol Intake: never Substance Use Type: denies use *Occupational Status:: retired Housing: penitentiary Household Members: spouse *Travel in the last 8 weeks: None - Psychiatric History Pschychiatric History:: Reports:: Anxiety, Depression Family Hx:: Cancer, Stroke
[2019-07-26 07:55] LABS: Hemoglobin A1C 6.5 % (4.0-6.0)
[2019-07-26 08:05] LABS: C-Reactive Protein 3.2 mg/L (0-4)
[2019-07-26 08:12] LABS: Erythrocyte Sedimentation Rate 80 mm/hr (0-30)
--- NOTE | 2019-07-26 09:54 | XR_ITS ---
PROCEDURE: XR ANKLE LT MIN 3V CLINICAL INDICATION: ex fix removal Follow-up surgery/external fixator removal COMPARISON: XR ANKLE LT 2V from 02/15/2019 XR ANKLE LT MIN 3V from 05/04/2019 XR ANKLE WT BEARING LT MIN 3V from 06/13/2019 XR ANKLE WT BEARING LT MIN 3V from 07/04/2019 XR FOOT LT MIN 3V from 07/26/2019 FINDINGS: External fixator device has been removed from the ankle and foot. There has been no change in the extensive postsurgical changes with fusion of the tibial talar joint, talocalcaneal joint, calcaneocuboid joint and along screw from the distal aspect of the 1st metatarsal into the medial cuboid, navicular, and talus. There is good alignment. There is artifact from overlying posterior splint and there is diffuse osteopenia. IMPRESSION: Status post external fixator removal with good alignment with extensive postsurgical changes as detailed above Dictated by: Parish Crystal MD 07/26/2019 12:30 Electronically signed by Parish Crystal MD in [place] 07/26/2019 12:30
--- NOTE | 2019-07-26 10:06 | P.PN_ITS ---
[facility] Anesthesia Record Part I Intake, IV Amount: 500 Estimated blood loss (mL): 0 Urine output (mL): 0 Blood Pressure: 165/87 SaO2: 94 Pulse Rate: 78 Respiratory Rate: 12 Temperature: 98.6 F Patient is:: Awake, Stable Stable to PACU at:: 10:05
--- NOTE | 2019-07-26 10:10 | HMH.OPNOTE ---
Date of procedure: 07/26/19 Pre-op Diagnosis:: 1. S/p left calcaneal fracture ORIF, with application of external fixation device on 05/04/19 2. Left lateral ankle wound 3. Left DM Charcot foot 4. PVD Post-op Diagnosis:: Same Procedure performed:: 1. Left external fixation device removal 2. Left wound debridement 3. Left delayed primary closure 4. Left application of Zip surgical closure device 5. Left application of posterior splint Surgeon:: Jessica Amezcua DPM DRYING MACHINE OPERATOR:: Kaushik Gandhi Anesthesia: GETA Estimated blood loss (mL): 5 Clinical Note:: Pre-Op Left Ex Fix Removal: On 05/04/19, surgery performed: left ORIF calcaneal fracture, Charcot fracture relocation, ankle- STJ-CCJ arthrodesis, calcaneal fracture non-union debridement- bone graft, Charcot midfoot stabilization, application of external fixation device, LEBRON, synovectomy, calcaneal bone biopsy, peroneal tendon debridement and repair, peri of amniotic membrane. The patient has been instructed on the planned procedure, all risk versus benefits of the procedure discussed. These include but are not limited to: bleeding, infection, nerve and blood vessel damage, need for further surgery, delay in healing of soft tissue or bone, failure of bones to heal, non-union, mal-union, failure of the implant, broken pins, over lengthening of the tendon, prolonged pain and recovery, prolonged swelling, CRPS/RSD, DVT, anesthetic complications and even . No guarantees were given. All questions fully answered. The patient verbalized understanding and agreed to proceed with surgery. Written consent was obtained. Necessary labs and pre-op testing ordered: CXR, EKG today. Labs from 07/15/19 reviewed from [facility]: wbc 7.8, esr 55, crp 4.5, glucose 93. Operative findings:: The left foot and ankle pin sites well-healed with no signs of infection. No drainage or purulence noted. Skin dry and flaky. The lateral foot had intact brown eschar. Sharply divided with 16 and forceps. Post debridement there was some healthy bleeding noted with 70% granular tissue, 30% fibrotic tissue. The wound measured 8.2 x 2.1 x 0.2 cm. Operative note:: On this date and time patient was deemed an appropriate surgical candidate. With informed consent signed, the patient was taken to the operating theater. The patient was positioned supine. General anesthesia was induced. No tourniquet used. Left removal of external fixation device: No edema and erythema noted to the pin sites. No drainage noted from pin sites. No clementine purulence, no malodor, no ascending cellulitis. The left lower extremity was prepped with betadine. A wrench was used to unscrew the frame. The frame was removed in total. All of the pins were removed without complication. Next the leg was re-prepped was betadine. A curette was used to curette and debride the pin sites. Fibrotic tissue and biofilm was removed. No purulence or other signs of infection noted to the foot or distal tibial pin sites. Pin site wounds were granular. All pin sites were cleansed with Betadine. Left lateral ankle wound debridement: Attention was directed to the lateral foot/ankle previously healed incision had intact eschar. Utilizing a 15 blade, forceps, and currette, the area was sharply debrided. There is no signs of infection noted. Post debridement thru skin into subq tissue. There was underlying wound dehiscence noted. Post debridement there was some healthy bleeding noted with 70% granular tissue, 30% fibrotic tissue. The wound measured 8.2 x 2.1 x 0.2 cm. The skin/wounds were flushed with Bactrican irrigation. Bleeding controlled. Left delayed primary closure: Next 3-0 Prolene used to close the majority of the wound. The apex of the wound was 0.8 x 0.4 x 0.2cm. Left application of Zip surgical closure device: Masitol applied. Next Zip line applied to the lateral wound. Betadine soaked 4x4's applied to wound site. Left application of posterior splint: Xeroform soaked
[2019-07-26 10:46] LABS: POC Glucose,Bedside 158 (70-110)
--- NOTE | 2019-07-26 14:43 | P.PN_ITS ---
[facility] Anesthesia Record Part II Discharge Time: 10:50 Destination: Surgical Day Care (OP Surgery) PACU nurse assessment reviewed?: Yes Patient Condition:: Good Anesthesia Complications:: None Swallowing reflex intact?: Yes Cyanosis?: No Blood Pressure: 126/70 Pulse Rate: 74 Temperature: 97.9 F Mental Status: Alert & Oriented Pain level:: 3 Nausea and/or vomitting:: None Intake, IV Amount: 0
--- NOTE | 2019-07-26 14:44 | SUR.PHASEI ---
1043: [facility] 158, no action needed
== END 2019-07-26 12:45 | disposition home or self-care (01) ==
LOC: OR 06:25
PROVIDERS: PCP Physician Assistant; Visit Provider Podiatrist
PROC: (CPT 11042; principal; 2019-07-26 08:30)
DX: S92.015 Nondisplaced fracture of body of left calcaneus (principal); S82.832D Other fracture of upper and lower end of left fibula, subsequent encounter for closed fracture with routine healing; E11.610 Type 2 diabetes mellitus with diabetic neuropathic arthropathy; Z79.4 Long term (current) use of insulin; E03.9 Hypothyroidism, unspecified; Z87.891 Personal history of nicotine dependence; G89.18 Other acute postprocedural pain; E11.51 Type 2 diabetes mellitus with diabetic peripheral angiopathy without gangrene; Z79.899 Other long term (current) drug therapy; Z88.8 Allergy status to other drugs, medicaments and biological substances; Z88.1 Allergy status to other antibiotic agents
CPT/HCPCS: 11042; 20694; 36415; 73610; 73630; 82962; 83036; 85651; 86140; 87581; 87633; 87798; 96374; J2405

== ENCOUNTER → 2019-08-16 13:35 | Outpatient (CLI) | payer MEDICARE, OTHER, MEDICAID, SELFPAY ==
--- NOTE | 2019-08-16 13:46 | XR_ITS ---
PROCEDURE: XR FOOT WT BEARING LT 3V CLINICAL INDICATION: postop views Follow-up surgery COMPARISON: XR ANKLE WT BEARING LT MIN 3V from 12/29/2018 XR FOOT LT 2V from 02/15/2019 XR FOOT LT 2V from 05/04/2019 XR FOOT LT 2V from 05/04/2019 XR FOOT WT BEARING LT 3V from 06/13/2019 XR FOOT LT MIN 3V from 07/04/2019 XR FOOT LT MIN 3V from 07/26/2019 FINDINGS: Posterior splint has been removed. There is diffuse osteopenia with extensive postsurgical changes with a long lag screw from the distal 1st metatarsal into the medial cuneiform navicular and into the talus with the lateral lag screw from the base of the 5th metatarsal into the cuboid and calcaneus. The there is generalized osteopenia and there has been prior fusion of the ankle with 3 screws. There is diffuse osteopenia. Small bony fragment is present at the anterior aspect of the ankle joint. There is pes planus. Lucencies are present in the metatarsals likely from previous pin placement. There are mild osteoarthritic changes of the 1st metatarsophalangeal joint and there is generalized osteopenia IMPRESSION: Midfoot and hindfoot fusion with pes planus Dictated by: Parish Crystal MD 08/16/2019 15:18 Electronically signed by Parish Crystal MD in [place] 08/16/2019 15:18
--- NOTE | 2019-08-16 13:46 | XR_ITS ---
PROCEDURE: XR ANKLE WT BEARING LT MIN 3V CLINICAL INDICATION: postop views Follow-up surgery/ORIF COMPARISON: XR ANKLE LT MIN 3V from 05/04/2019 XR ANKLE WT BEARING LT MIN 3V from 06/13/2019 XR ANKLE WT BEARING LT MIN 3V from 07/04/2019 XR ANKLE LT MIN 3V from 07/26/2019 FINDINGS: Status post fusion of the ankle joint and hindfoot the. The posterior splint has been removed. There is pes planus with severe osteoarthritic changes at the ankle joint and talonavicular joint and navicular cuneiform and talocalcaneal joint. No change in the screws in the distal tibia the talus calcaneus and long lag screw from the 1st metatarsal through the medial cuneiform navicular and into the talus. IMPRESSION: No change status post ORIF of the ankle and hindfoot with pes planus and degenerative change Dictated by: Parish Crystal MD 08/16/2019 14:57 Electronically signed by Parish Crystal MD in [place] 08/16/2019 14:57
== END ==
PROVIDERS: PCP Physician Assistant; Visit Provider Podiatrist
DX: Z98.890 Other specified postprocedural states (principal); S92.015 Nondisplaced fracture of body of left calcaneus; S82.832D Other fracture of upper and lower end of left fibula, subsequent encounter for closed fracture with routine healing
CPT/HCPCS: 73610; 73630

== ENCOUNTER → 2019-09-01 14:20 | Outpatient (CLI) | payer MEDICARE, OTHER, MEDICAID, SELFPAY ==
--- NOTE | 2019-09-01 14:28 | XR_ITS ---
PROCEDURE: XR FOOT WT BEARING LT 3V CLINICAL INDICATION: post-op COMPARISON: XR FOOT WT BEARING LT 3V from 06/13/2019 XR FOOT LT MIN 3V from 07/04/2019 XR FOOT LT MIN 3V from 07/26/2019 XR FOOT WT BEARING LT 3V from 08/16/2019 FINDINGS: Prior ankle and hindfoot fusion. Bony hardware is unchanged. There is mild pes planus and there is some mild bony debris at both anterior and posterior to the ankle joint IMPRESSION: Overall no significant change status post ankle and midfoot fusion Dictated by: Parish Crystal MD 09/01/2019 15:22 Electronically signed by Parish Crystal MD in [place] 09/01/2019 15:22
--- NOTE | 2019-09-01 14:28 | XR_ITS ---
PROCEDURE: XR FOOT WT BEARING RT 3V CLINICAL INDICATION: post-op Pain COMPARISON: XR FOOT WT BEARING LT 3V from 06/13/2019 XR FOOT LT MIN 3V from 07/04/2019 XR FOOT LT MIN 3V from 07/26/2019 XR FOOT WT BEARING LT 3V from 08/16/2019 FINDINGS: Hallux valgus with osteoarthritis of the 1st MTP joint and bunion formation at the distal aspect of the 1st metatarsal. There are mild osteoarthritic changes at the talonavicular and navicular cuneiform joint IMPRESSION: Hallux valgus with osteoarthritis of the 1st MTP joint and bunion formation at the distal aspect of the 1st metatarsal. Dictated by: Parish Crystal MD 09/01/2019 15:19 Electronically signed by Parish Crystal MD in [facility] 09/01/2019 15:19
== END ==
PROVIDERS: PCP Emergency Medicine; Visit Provider Podiatrist
DX: Z98.890 Other specified postprocedural states (principal)
CPT/HCPCS: 73630

== ENCOUNTER → 2019-09-01 16:42 | Outpatient (CLI) | payer MEDICARE, OTHER, MEDICAID, SELFPAY ==
[2019-09-01 16:53] LABS: Basophils # 0.1 K/mm3 (0-0.2); Basophils % 0.5 % (0.1-2.0); Eosinophils # 0.3 K/mm3 (0.0-0.4); Eosinophils % 2.7 % (0.1-12.0); Hematocrit 36.9 % (37.0-47.0); Hemoglobin 11.9 g/dL (12.2-16.2); Lymphocytes # 3.3 K/mm3 (0.7-4.5); Lymphocytes % 34.9 % (10-50); Mean Corpuscular HGB Conc 32.2 g/dL (31.8-35.4); Mean Platelet Volume 6.5 fl (7.4-10.4); Monocytes # 0.4 K/mm3 (0.1-1.0); Monocytes % 4.1 % (1.7-9.3); Neutrophils # 5.5 K/mm3 (1.8-7.8); Neutrophils % 57.9 % (37.0-80.0); Platelet Count 512 K/mm3 (142-424); Red Blood Count 4.24 M/mm3 (4.20-5.40); White Blood Count 9.5 K/mm3 (4.8-10.8)
[2019-09-01 17:32] LABS: Erythrocyte Sedimentation Rate 79 mm/hr (0-30)
[2019-09-01 19:38] LABS: Chloride 103 mmol/L (98-107)
[2019-09-01 19:39] LABS: Potassium 4.3 mmoL/L (3.5-5.1); Sodium 135 mmol/L (136-145)
[2019-09-01 19:41] LABS: Alanine Aminotransferase 11 U/L (12-78); Alkaline Phosphatase 217 U/L (38-126); Aspartate Amino Transferase 18 U/L (14-36); Bilirubin,Total 0.4 mg/dl (0.2-1.3); Blood Urea Nitrogen 17 mg/dl (7-17); Estimated Glomerular Filt Rate 70 ml/min (>60); GFR (African American) 85 ML/MIN (>60)
[2019-09-01 19:42] LABS: Albumin Level 4.1 g/dl (3.5-5.0); Albumin/Globulin Ratio 1.4 (1.1-1.8); Anion Gap 10.3 mEq/L (5-15); Calcium 8.7 mg/dl (8.4-10.2); Carbon Dioxide 26 mmol/L (22.0-30.0); Globulin 2.9 g/dL (1.3-3.2); Glucose 94 mg/dl (74-100)
== END ==
PROVIDERS: Visit Provider Podiatrist
DX: R10.12 Left upper quadrant pain (principal); Z98.890 Other specified postprocedural states
CPT/HCPCS: 36415; 73630; 80053; 85025; 85651; 86140

== ENCOUNTER → 2019-09-15 15:03 | Outpatient (CLI) | payer MEDICARE, OTHER, MEDICAID, SELFPAY ==
--- NOTE | 2019-09-15 15:14 | XR_ITS ---
PROCEDURE: XR ANKLE WT BEARING LT MIN 3V CLINICAL INDICATION: POST-OP COMPARISON: XR ANKLE WT BEARING LT MIN 3V from 06/13/2019 XR ANKLE WT BEARING LT MIN 3V from 07/04/2019 XR ANKLE LT MIN 3V from 07/26/2019 XR ANKLE WT BEARING LT MIN 3V from 08/16/2019 FINDINGS: There are no interval changes. There is stable screw ankylosis of the ankle mortise and hindfoot. Soft tissues are intact. IMPRESSION: No changes above Dictated by: Toby Vital 09/15/2019 15:45 Electronically signed by Toby Vital in [facility] 09/15/2019 15:45
== END ==
PROVIDERS: PCP Physician Assistant; Visit Provider Podiatrist
DX: Z98.890 Other specified postprocedural states (principal)
CPT/HCPCS: 73610

== ENCOUNTER → 2020-01-19 13:19 | Outpatient (CLI) | payer MEDICARE, OTHER, MEDICAID, SELFPAY ==
--- NOTE | 2020-01-19 13:26 | XR_ITS ---
PROCEDURE: XR ANKLE WT BEARING LT MIN 3V CLINICAL INDICATION: post-op Follow-up surgery COMPARISON: CR XR ANKLE WT BEARING LT MIN 3V from 07/04/2019 CR XR ANKLE LT MIN 3V from 07/26/2019 CR XR ANKLE WT BEARING LT MIN 3V from 08/16/2019 CR XR FOOT WT BEARING LT 3V from 09/01/2019 CR XR ANKLE WT BEARING LT MIN 3V from 09/15/2019 CR XR FOOT WT BEARING LT 3V from 01/19/2020 FINDINGS: Status post ankle joint fusion with 3 screws extending from the tibia into the talus. There is an increasing zone of lucency along the head of the tibial screw which is the most medial screw in the distal tibia with increasing cortical thickening at this area adjacent to the screw. A zone of lucency is also noted at this screw distally at the calcaneus. This is concerning for underlying loosening of the screw. There does appear to be incomplete ankle joint fusion. The screw from the posterior calcaneus into the talus is unchanged. There is pes planus. A long screw from the distal aspect of the 1st metatarsal into the medial cuneiform navicular and talus is noted. There is also some lucency around the proximal aspect of that screw. An additional screw from the distal aspect of the cuboid into the calcaneus is noted also with some lucency around that screw. The lucencies are concerning for incomplete fusion or underlying infection. IMPRESSION: Status post ankle and foot fusion as described above. There are multiple areas of developing lucencies around the screws suspicious for incomplete fusion with loosening and/or infection. Dictated by: Parish Crystal MD 01/19/2020 14:10 Parish Crystal MD in [facility] 01/19/2020 14:10
== END ==
PROVIDERS: PCP Emergency Medicine; Visit Provider Podiatrist
DX: E11.610 Type 2 diabetes mellitus with diabetic neuropathic arthropathy (principal); L97.512 Non-pressure chronic ulcer of other part of right foot with fat layer exposed
CPT/HCPCS: 73610; 73630

== ENCOUNTER 2020-02-27 15:00 | Outpatient (RCR) | payer MEDICARE, OTHER, MEDICAID, SELFPAY | END 2020-02-27 15:05 | disposition home or self-care (01) | LOC: PT 15:00 | PROVIDERS: PCP Emergency Medicine; Visit Provider Podiatrist | DX: E11.621 Type 2 diabetes mellitus with foot ulcer (principal); L97.519 Non-pressure chronic ulcer of other part of right foot with unspecified severity | CPT/HCPCS: 97162; 97597 ==

== ENCOUNTER → 2020-06-06 13:07 | Outpatient (CLI) | payer MEDICARE, OTHER, MEDICAID, SELFPAY ==
--- NOTE | 2020-06-06 13:18 | XR_ITS ---
PROCEDURE: XR FOOT WT BEARING LT 3V CLINICAL INDICATION: diabetic Pain foot and ankle pain COMPARISON: CR XR FOOT LT MIN 3V from 07/26/2019 CR XR FOOT WT BEARING LT 3V from 08/16/2019 CR XR FOOT WT BEARING RT 3V from 09/01/2019 CR XR FOOT WT BEARING LT 3V from 09/01/2019 CR XR ANKLE WT BEARING LT MIN 3V from 09/15/2019 CR XR FOOT WT BEARING LT 3V from 01/19/2020 CR XR ANKLE WT BEARING LT MIN 3V from 01/19/2020 CR XR ANKLE WT BEARING LT MIN 3V from 06/06/2020 FINDINGS: There has been extensive foot and ankle surgery. There is fusion the ankle joint with 3 screws extending from the tibia into the talus. There is fusion the talocalcaneal joint with 1 screw. Abundant calcification is present posterior to the ankle joint. There has been placement of a screw between the base of the 5th metatarsal into the cuboid and into the calcaneus. The joint space remains patent at this region. A long screws present from the distal aspect of the 1st metatarsal through the medial cuneiform into the navicular and from the navicular into the talus. The joint spaces remain patent at the talonavicular and navicular cuneiform region. There is flattening of the navicular which may be slightly worse. There remains zone of lucency around the screws as previously described. This appears slightly worse in the screw which is in the proximal tibia medial aspect extending into the talus. There is an old distal fibular fracture. There is pes planus IMPRESSION: Extensive postsurgical changes as described above. The zone of lucency around the tibial screws especially the 1 along the medial aspect of the tibia appears somewhat more prominent and could be related to loosening of the screws or infection. Please see above for detail Pes planus. There is flattening of the lateral aspect of the navicular which may be due to avascular necrosis Dictated by: Parish Crystal MD 06/06/2020 16:31 Parish Crystal MD in [facility] 06/06/2020 16:31
--- NOTE | 2020-06-06 13:18 | XR_ITS ---
PROCEDURE: XR ANKLE WT BEARING RT MIN 3V CLINICAL INDICATION: diabetic Pain COMPARISON: CR XR ANKLE LT MIN 3V from 07/26/2019 CR XR ANKLE WT BEARING LT MIN 3V from 08/16/2019 CR XR ANKLE WT BEARING LT MIN 3V from 09/15/2019 CR XR ANKLE WT BEARING LT MIN 3V from 01/19/2020 FINDINGS: Fracture or dislocation. No lytic or blastic change or significant degenerative change. Mild soft tissue swelling is present medially and laterally. IMPRESSION: Mild soft tissue swelling otherwise negative Dictated by: Parish Crystal MD 06/06/2020 15:50 Parish Crystal MD in [facility] 06/06/2020 15:50
--- NOTE | 2020-06-06 13:18 | XR_ITS ---
PROCEDURE: XR FOOT WT BEARING RT 3V CLINICAL INDICATION: diabetic foot and ankle pain COMPARISON: CR XR FOOT WT BEARING LT 3V from 08/16/2019 CR XR FOOT WT BEARING RT 3V from 09/01/2019 CR XR FOOT WT BEARING LT 3V from 09/01/2019 CR XR FOOT WT BEARING LT 3V from 01/19/2020 FINDINGS: Hallux valgus with osteoarthritis of the 1st MTP joint and bunion formation at the distal aspect of the 1st metatarsal. Hallux valgus is slightly worse with mild lateral subluxation of the proximal phalanx of the great toe by approximately 6 mm. Bunion formation is present at the distal aspect of the 1st metatarsal. There is borderline pes planus. Osteoarthritic changes are present at the talonavicular and navicular cuneiform joint. IMPRESSION: Worsening hallux valgus with bunion formation with osteoarthritis at the talonavicular and navicular cuneiform joint Dictated by: Parish Crystal MD 06/06/2020 16:25 Parish Crystal MD in [facility] 06/06/2020 16:25
== END ==
PROVIDERS: PCP Nurse Practitioner Family; Visit Provider Nurse Practitioner
DX: E11.610 Type 2 diabetes mellitus with diabetic neuropathic arthropathy (principal); M20.41 Other hammer toe(s) (acquired), right foot; M20.42 Other hammer toe(s) (acquired), left foot; Z98.890 Other specified postprocedural states; Z79.84 Long term (current) use of oral hypoglycemic drugs
CPT/HCPCS: 73610; 73630

== ENCOUNTER → 2020-10-23 20:03 | Outpatient (CLI) | payer MEDICARE, OTHER, MEDICAID, SELFPAY ==
[2020-10-23 20:20] LABS: Basophils # 0.1 K/mm3 (0-0.2); Basophils % 0.9 % (0.1-2.0); Eosinophils # 0.2 K/mm3 (0.0-0.4); Eosinophils % 2.1 % (0.1-12.0); Hematocrit 35.3 % (37.0-47.0); Hemoglobin 11.8 g/dL (12.2-16.2); Lymphocytes # 3.4 K/mm3 (0.7-4.5); Lymphocytes % 29.9 % (10-50); Mean Corpuscular HGB Conc 33.3 g/dL (31.8-35.4); Mean Corpuscular Hemoglobin 28.4 pg (27.0-31.2); Mean Corpuscular Volume 85.3 fl (81-99); Monocytes # 0.5 K/mm3 (0.1-1.0); Monocytes % 4.6 % (1.7-9.3); Neutrophils # 7.1 K/mm3 (1.8-7.8); Neutrophils % 62.5 % (37.0-80.0); Platelet Count 546 K/mm3 (142-424); Red Blood Count 4.14 M/mm3 (4.20-5.40); Red Cell Distribution Width 15.5 % (11.5-17.5); White Blood Count 11.4 K/mm3 (4.8-10.8)
[2020-10-23 20:26] LABS: Hemoglobin A1C 6.8 % (4.0-6.0)
[2020-10-23 21:19] LABS: Alanine Aminotransferase 8 U/L (12-78); Albumin/Globulin Ratio 1.4 (1.1-1.8); Alkaline Phosphatase 93 U/L (38-126); Anion Gap 14.1 mEq/L (5-15); Aspartate Amino Transferase 17 U/L (14-36); Bilirubin,Total 0.3 mg/dl (0.2-1.3); Blood Urea Nitrogen 19 mg/dl (7-17); Calcium 8.5 mg/dl (8.4-10.2); Carbon Dioxide 26 mmol/L (22.0-30.0); Chloride 100 mmol/L (98-107); Chol/HDL Ratio 7.9 (1-3.5); Cholesterol 270 mg/dl (140-200); Estimated Glomerular Filt Rate 54 ml/min (>60); GFR (African American) 65 ML/MIN (>60); Globulin 2.8 g/dL (1.3-3.2); Glucose 124 mg/dl (74-100); HDL Cholesterol 34 mg/dl (40-60); Potassium 5.1 mmoL/L (3.5-5.1); Sodium 135 mmol/L (136-145); Total Protein,Serum 6.8 g/dl (6.3-8.2); Triglycerides 303 mg/dl (30-150); VLDL Cholesterol 61 mg/dL (0-40)
[2020-10-23 21:29] LABS: Direct LDL Cholesterol 170.01 mg/dL (100-129)
== END ==
PROVIDERS: Visit Provider Family Medicine
DX: R39.9 Unspecified symptoms and signs involving the genitourinary system (principal); I10 Essential (primary) hypertension; E11.8 Type 2 diabetes mellitus with unspecified complications; Z79.84 Long term (current) use of oral hypoglycemic drugs
CPT/HCPCS: 80053; 80061; 83036; 85025; 87086

== ENCOUNTER → 2020-11-09 12:36 | Outpatient (CLI) | payer MEDICARE, OTHER, MEDICAID, SELFPAY ==
[2020-11-09 12:58] LABS: Chloride 103 mmol/L (98-107)
[2020-11-09 12:59] LABS: Potassium 4.2 mmoL/L (3.5-5.1); Sodium 135 mmol/L (136-145)
[2020-11-09 13:02] LABS: Anion Gap 10.2 mEq/L (5-15); Blood Urea Nitrogen 21 mg/dl (7-17); Calcium 8.4 mg/dl (8.4-10.2); Carbon Dioxide 26 mmol/L (22.0-30.0); Estimated Glomerular Filt Rate 61 ml/min (>60); GFR (African American) 74 ML/MIN (>60); Glucose 116 mg/dl (74-100)
--- NOTE | 2020-11-09 13:50 | CT_ITS ---
PROCEDURE: CT HEAD/BRAIN WO/W CON CLINICAL INDICATION: speech difficulty COMPARISON: CT CT HEAD/BRAIN WO CON from 03/31/2019 TECHNIQUE: IV Contrast: 100ML Isovue 370 Axial images obtained. All CT scans at the facility use one or more dose reduction, viz: automated exposure control, ma/kV adjustment per patient size (including targeted exams where dose is matched to indication, i.e. head), or iterative reconstruction technique. FINDINGS: No midline shift, mass effect, intracranial hemorrhage, hydrocephalus, or extra-axial fluid collection is evident. Encephalomalacia changes are present in the left frontal parietal region. Low-density changes are present in the periventricular area consistent with ischemic gliotic change from microvascular disease. No enhancing lesions are evident. No large aneurysms apparent. The calvarium has an unremarkable appearance. No mastoid effusion. No sinus air-fluid level IMPRESSION: No acute intracranial findings. Encephalomalacia change in the left frontal parietal region with periventricular ischemic gliotic changes. Dictated by: Parish Crystal MD 11/09/2020 14:39 Parish Crystal MD in [facility] 11/09/2020 14:39
--- NOTE | 2020-11-09 14:30 | CA_ITS ---
APPROVED REPORT Kettle Chipper: Lois Whiting TRANSPLANTER ORCHID Laterality: Bilateral Study Quality: Fair Indications: HTN, hx of cva, DM, ex smoker, eye hemorrhage in August, slurred speech Risk Factors Hypertension: TIA/CVA History Hyperlipidemia Diabetes Doppler Spectral Velocity Analysis ECA (R) 604.40/ cm/s ECA (L) 135.00/ cm/s pICA (R) 52.40/9.60 cm/s dICA (L) 95.40/34.70 cm/s Ena (L) 122.30/46.20 cm/s dCCA (R) 60.40/7.50 cm/s pICA (L) 174.10/65.50 cm/s pCCA (R) 69.00/19.20 cm/s Vert (R) 100.20/ cm/s dCCA (L) 117.50/26.00 cm/s ICA/CCA 0.87 pCCA (L) 103.30/21.70 cm/s Vert (L) 40.10/ cm/s ICA/CCA 1.48 Findings Duplex evaluation demonstrates stenosis of the right mid internal carotid artery appears to be occluded, plaque noted thru out vessel. Duplex evaluation demonstrates stenosis of the left proximal internal carotid artery in the range of 50-69%. Duplex evaluation demonstrates antegrade flow of the bilateral Vertebral Arteries. Plaque noted in bilateral CCA's. Conclusion Duplex evaluation demonstrates stenosis of the right mid internal carotid artery appears to be occluded, plaque noted thru out vessel. Duplex evaluation demonstrates stenosis of the left proximal internal carotid artery in the range of 50-69%. Duplex evaluation demonstrates antegrade flow of the bilateral Vertebral Arteries. Plaque noted in bilateral CCA's which decreases accuracy of exam Electronically signed by : Parish Crystal MD 11/12/2020 16:36:56
--- NOTE | 2020-11-09 14:30 | CA_ITS ---
APPROVED REPORT EXAM: Comprehensive 2D, Doppler, and color-flow Echocardiogram Medical Lab Technician: Lois Whiting CRT Ht: 5 ft 5 in Wt: 168lbs BSA: 1.84 BP: 140/80 mmHg Indications: CVA/TIA, Diabetes, Hyperlipidemia 2D Dimensions Aortic Root 1.87 cm LA Volume 31.70 mL LA Volume Index 17.20 mL/m2 (M/F) 16-34 M-Mode Dimensions RVDd 2.96 cm (0.9-2.6) LA Diam 3.70 cm (1.9-4.0) LVDd 4.39 cm (3.5-5.7) Ao Diam 3.66 cm (2.0-3.7) LVDs 2.82 cm (3.5-5.7) IVSd 2.00 cm (0.6-1.1) PWd 1.21 cm (0.6-1.1) EF (Teich) 65.50% FS 35.80% EDV (Teich) 87.20 mL ESV (Teich) 30.10 mL LV Diastology E Decel Time 327.00 (160-240 msec) E/A Ratio 0.64 MED E' 4.10 (< 7 cm/sec) MED A' 7.90 cm/s E'/MED E' Ratio 15.76 (>14) LAT E' 4.30 (<10 cm/sec) LAT A' 8.20 cm/s E/LAT E' Ratio 15.02 (>14) Aortic Valve AO Peak GR. 7.00 mmHg Mitral Valve MV A Velocity 101.00 (40-130 cm/s) E/A Ratio 0.64 MV Decel. Time 327.00 (160-240 ms) Pulmonary Valve PV Peak Velocity 95.00 (50-150 cm/s) Tricuspid Valve TR P. Velocity 249.00 cm/s RAP Estimate 10.00 mmHg RVSP 34.80 mmHg Left Ventricle Left atrium is mildly enlarged, left ventricle is normal size, mild concentric left ventricular hypertrophy, visually estimated ejection fraction 55% with no regional wall motion abnormality, grade 1 diastolic dysfunction seen with tissue Doppler evidence of raise left atrial pressure. Right Ventricle Right atrium right ventricular normal size and contractility. Aortic Valve Aortic valve is minimally thickened and fibrosed, there is no aortic stenosis or aortic insufficiency. Mitral Valve Mitral valve is grossly normal, there is mild mitral regurgitation. Tricuspid Valve Tricuspid valve grossly normal, there is mild tricuspid regurgitation, tricuspid regurgitation jet velocity is inadequate for calculation of the right ventricular systolic pressure. Pulmonic Valve Pulmonic valve is poorly visualized. Great Vessels Aortic root is normal size. Pericardium No significant pericardial effusion noted. Conclusion 1. Mildly enlarged left atrium, normal left ventricular size, mild concentric left ventricular hypertrophy, visually estimated ejection fraction 55% with no regional wall motion abnormality, grade 1 diastolic dysfunction seen with tissue Doppler evidence of raise left atrial pressure. 2. Mild mitral and tricuspid regurgitation. 3. No significant pericardial effusion noted. Electronically signed by : Viet Garcia MD 11/11/2020 08:40:50
== END ==
PROVIDERS: Visit Provider Family Medicine
DX: Z01.818 Encounter for other preprocedural examination (principal); R47.9 Unspecified speech disturbances; Z86.73 Personal history of transient ischemic attack (TIA), and cerebral infarction without residual deficits; I10 Essential (primary) hypertension
CPT/HCPCS: 70470; 80048; 93306; 93880; Q9967

== ENCOUNTER → 2021-02-28 07:39 | Outpatient (CLI) | payer MEDICARE, OTHER, MEDICAID, SELFPAY ==
--- NOTE | 2021-02-28 07:40 | CA_ITS ---
APPROVED REPORT [employer]: Janis Schultz RVT Study Quality: Good Indications: hypertension Risk Factors Hypertension Diabetes Renal Artery Doppler Origin (R) 257.2/ cm/sec Proximal (R) 171.9/ cm/sec Mid (R) 187.8/ cm/sec Distal (R) 151.7/ cm/sec Renal Aorta Ratio (R) 2.05 Segmental A. (R) 158.7/17.6 cm/sec RI: 0.88 Segmental A. Sup (R) 59.2/6.3 cm/sec Segmental A. Mid (R) 15.8/17.6 cm/sec Segmental A. Inf (R) 56.7/7.6 cm/sec Origin (L) 319.0/ cm/sec Proximal (L) 265.2/ cm/sec Mid (L) 183.1/ cm/sec Distal (L) 132.4/ cm/sec Renal Aorta Ratio (L) 2.54 Segmental A. (L) 145.1/16.3 cm/sec RI: 0.88 Segmental A. Sup (L) 61.6/16.3 cm/sec Segmental A. Mid (L) 145.1/16.3 cm/sec Segmental A. Inf (L) 49.0/7.3 cm/sec Renal Measurements Kidney Size (R) 12.5x6.7 cm Cortical Thickness (R) 1.5 cm Kidney Size (L) 12.0x5.6 cm Cortical Thickness (L) 1.4 cm Findings Study suggests less than 60% stenosis of the right renal artery. Study suggests less than 60% stenosis of the left renal artery. Conclusion SStudy suggests less than 60% stenosis of the right renal artery. Study suggests less than 60% stenosis of the left renal artery. Consider CTA for confirmation Electronically signed by : Parish Crystal MD 02/28/2021 17:27:12
== END ==
PROVIDERS: PCP Family Medicine; Visit Provider Family Medicine
DX: I10 Essential (primary) hypertension (principal)
CPT/HCPCS: 93976

== ENCOUNTER 2021-06-20 18:05 | Emergency (ER) | payer MEDICARE, OTHER, MEDICAID, SELFPAY ==
[2021-06-20 18:06] VITALS: BP 280/93; PULSE 82; RESP 18; TEMP 36.8; O2SAT 98; BMI 27.4
[2021-06-20 18:07] VITALS: BMI 30.7
--- NOTE | 2021-06-20 18:07 | PC.NURSE ---
patient to CT by stretcher with orthotic and prosthetic technician
--- NOTE | 2021-06-20 18:07 | CT_ITS ---
PROCEDURE INFORMATION: Exam: CT Head Without Contrast Exam date and time: 06/20/2021 6:06 PM Age: 75 years old Clinical indication: Speech disturbance and weakness, extremity; Right; Slurred speech; Additional info: Stroke alert. Right arm and leg weakness. Difficulty speaking TECHNIQUE: Imaging protocol: Computed tomography of the head without contrast. Radiation optimization: All CT scans at this facility use at least one of these dose optimization techniques: automated exposure control; mA and/or kV adjustment per patient size (includes targeted exams where dose is matched to clinical indication); or iterative reconstruction. Other technique: STROKE PROTOCOL was implemented. COMPARISON: CT HEAD/BRAIN WO/W CON 11/09/2020 2:07 PM FINDINGS: Brain: There is a medial left frontal parafalcine cortical infarct with cystic encephalomalacia which is new compared with 11/09/2020, but has a chronic appearance, series 3, images 44-53. There are also scattered areas of posterior left frontal and parietal encephalomalacia which have worsened in the interval suggesting new interval infarcts or worsening of old infarcts which were previously reported, e.g. series 3, image 52. There are additional patchy white matter microvascular ischemic changes in both hemispheres. Underlying generalized cerebral cortical atrophy/volume loss, bilaterally. No intracranial hemorrhage. No edema, swelling or mass-effect. Cerebral ventricles: The ventricles are normal for age. No hydrocephalus. Paranasal sinuses: No acute findings in the visualized sinuses. No significant sinus opacification or air-fluid levels. Mild bilateral ethmoid mucosal thickening. Mastoid air cells: There are some new left mastoid air cell opacities, e.g. series 3, image 10, which could be mastoiditis or effusion of other etiology. There are some chronic inferior right mastoid opacities, unchanged. Orbital cavities: No acute findings in the orbits, as visualized. Correlate for history of lens replacement surgeries. Vasculature: There are atherosclerotic calcified plaques in the intracranial carotid and vertebral arteries. Bones/joints: Hyperostosis frontalis interna, a normal variant.No acute skull fracture. No lytic lesions. Soft tissues: There are no soft tissue masses or fluid collections. IMPRESSION: 1. There are multiple new left cerebral hemisphere cortical infarcts compared with 11/09/2020, but these appear most likely chronic rather than acute with cystic encephalomalacia and severely diminished attenuation, involving left frontal and parietal cortex and subjacent white matter. No definite acute infarcts. 2. There is no CT evidence of intracranial mass or intracranial hemorrhage. 3. New mild left mastoid air cell opacities, which could be acute mastoiditis or small effusion of other etiology. 4. Additional nonemergency and chronic findings as above, with cerebral atrophy, chronic microvascular ischemic changes, bilateral white matter disease, atherosclerotic calcifications. 5. MRI may help for further evaluation to exclude occult acute ischemia or acute marginal ischemia abutting chronic infarcts. ASSESSMENT: ASPECTS (Nati Stroke Program Early CT Score) is 10.
--- NOTE | 2021-06-20 18:07 | PC.NURSE ---
ED MD at ; daughter at bedside
--- NOTE | 2021-06-20 18:13 | PC.NURSE ---
patient back from CT by stretcher with infectious disease technician
--- NOTE | 2021-06-20 18:13 | [facility].EDNEU ---
ED Disposition Clinical Impression: CVA (cerebral vascular accident) Qualifiers: CVA mechanism: unspecified Qualified Code(s): I63.9 - Cerebral infarction, unspecified Disposition: Xfer Short-Term Hosp Condition on Discharge: Good Referrals: Mp Mancia MD [Primary Care Provider] - Forms: Transfer Record - ED - Critical Care Critical Care Time: No Attestation: On 06/20/21, the high probability of a clinically significant, sudden or life threatening deterioration of the following system(s) required my full and direct attention, intervention and personal management. The time I documented below is in addition to time spent performing reported procedures but includes the following listed in this critical care notation. Medical Decision Making - Medical Records Medical records reviewed: Yes: I reviewed the patient's medical records. - Ramses Inquiry Pt receiving controlled substance: No Vital Signs: 06/20/21 18:06 06/20/21 18:16 06/20/21 18:30 Temperature 98.3 F Temperature Source Oral Pulse Rate 77 Pulse Rate [Radial] 82 Respiratory Rate 18 16 Blood Pressure 190/80 H 219/78 H Blood Pressure [Right Arm] 280/93 H Blood Pressure Mean [Right Arm] 155 Blood Pressure Source Manual Cuff/ Auscultation Automatic Cuff Blood Pressure Position Sitting Sitting 02 Sat by Pulse Oximetry 98 95 Oxygen Delivery Method Room Air Room Air 06/20/21 18:55 Temperature Temperature Source Pulse Rate Pulse Rate [Radial] Respiratory Rate Blood Pressure 234/95 H Blood Pressure [Right Arm] Blood Pressure Mean [Right Arm] Blood Pressure Source Blood Pressure Position 02 Sat by Pulse Oximetry Oxygen Delivery Method - Lab Data Lab Results 06/20/21 18:25: WBC 7.9, RBC 4.32, Hgb 9.7 L, Hct 31.2 L, MCV 72.2 L, MCH 22.4 L, MCHC 31.1 L, RDW 19.8 H, Plt Count 652 H, MPV 7.0 L, Neut % (Auto) 61.2, Lymph % (Auto) 32.2, Kimball % (Auto) 5.1, Eos % (Auto) 0.6, Baso % (Auto) 1.0, Neut # (Auto) 4.9, Lymph # (Auto) 2.6, Kimball # (Auto) 0.4, Eos # (Auto) 0.0, Baso # (Auto) 0.1 06/20/21 18:25: Sodium 133 L, Potassium 4.5, Chloride 104, Carbon Dioxide 27, Anion Gap 6.5, BUN 16, Creatinine 1.10 H, Estimated Creat Clear 59, Estimated GFR 48 L, Est GFR ( Amer) 58 L, Glucose 144 H, Calcium 8.0 L, Total Bilirubin 0.2, AST 18, ALT 12, Alkaline Phosphatase 117, Total Protein 6.3, Albumin 3.4 L, Globulin 2.9, Albumin/Globulin Ratio 1.2 06/20/21 18:25: PT 10.3, INR 0.90, APTT 25.9 06/20/21 18:34: Urine Color Yellow, Urine Appearance Clear, Urine pH 6.0, Ur Specific [place] >= 1.030, Urine Protein 3+, Urine Glucose (UA) 1+, Urine Ketones Trace, Urine Blood 1+, Urine Nitrate Positive, Urine Bilirubin Negative, Urine Urobilinogen 0.2, Ur Leukocyte Esterase Negative, Urine RBC Occasional, Urine WBC 10-20, Ur Squamous Epith Cells None, Urine Bacteria 4+ Result diagrams: 06/20/21 18:25 06/20/21 18:25 Orders (Tests/Meds): ED MEDICATIONS Discontinued Medications Generic Name Dose Route Start Last Admin Trade Name Freq PRN Reason Stop Dose Admin Labetalol HCl 10 mg 06/20/21 18:50 06/20/21 18:55 Labetalol 5mg/Ml 20ml Mdv IV 06/20/21 18:51 10 mg ONCE ONE Administration ORDERS Category Date Time Status Rapid PCR Covid and Flu A/B Stat Lab 06/20/21 19:06 Received Urine Culture Stat Micro 06/20/21 18:34 Received ECG Request by /Ramon Stat Y 06/20/21 18:12 Ordered - ECG Data Tracing #1 I reviewed this ECG and interpreted as documented below: ekg by me nsr, lvh, no st elev - Physician Consults Time: 18:47 (rad called reports new multiple subacute to older left sided cva well defined) Time: 18:48 ([facility]roke called , recommends transfer for inpt neurology eval, no tpa/thrombectomy goal BP 185/110 Dr Bundy) Time: 19:11 ([facility] accepts to [facility] ) - Reevaluation(s) Time: 18:51 Reevaluation #1: bp 234/95 labetalol ordered Neuro HPI - General Stated Complaint: weaknes
[2021-06-20 18:16] VITALS: BP 190/80
--- NOTE | 2021-06-20 18:21 | ECG_ITS ---
APPROVED REPORT Exam: Resting ECG HR:78 bpm ECG Measurements Heart Rate 78 AXES CA 164 P 59 QRSd 89 QRS 63 QT 374 T 44 QTc 408 Conclusion SINUS RHYTHM LEFT VENTRICULAR HYPERTROPHY AND ST-T CHANGE [VOLTAGE CRITERIA PLUS ST/T ABNORMALITY] ABNORMAL ECG UNCONFIRMED REPORT Electronically signed by : Calvin Pablo MD 06/22/2021 08:17:12
[2021-06-20 18:30] VITALS: BP 219/78; PULSE 77; RESP 16; O2SAT 95
--- NOTE | 2021-06-20 18:43 | PC.NURSE ---
speaking with SANDRA at this time
[2021-06-20 18:44] LABS: Microscopic, Urine URINE MICROSCOPIC (MICROSCOPIC)
--- NOTE | 2021-06-20 18:48 | PC.NURSE ---
pt moving rt arm and hand, pt was able move rt leg and bend at knee for weems placement.
[2021-06-20 18:51] LABS: Basophils # 0.1 K/mm3 (0-0.2); Eosinophils % 0.6 % (0.1-12.0); Hematocrit 31.2 % (37.0-47.0); Hemoglobin 9.7 g/dL (12.2-16.2); Lymphocytes # 2.6 K/mm3 (0.7-4.5); Lymphocytes % 32.2 % (10-50); Mean Corpuscular HGB Conc 31.1 g/dL (31.8-35.4); Mean Corpuscular Hemoglobin 22.4 pg (27.0-31.2); Mean Corpuscular Volume 72.2 fl (81-99); Monocytes # 0.4 K/mm3 (0.1-1.0); Monocytes % 5.1 % (1.7-9.3); Neutrophils # 4.9 K/mm3 (1.8-7.8); Neutrophils % 61.2 % (37.0-80.0); Platelet Count 652 K/mm3 (142-424); Red Blood Count 4.32 M/mm3 (4.20-5.40); Red Cell Distribution Width 19.8 % (11.5-17.5); White Blood Count 7.9 K/mm3 (4.8-10.8)
[2021-06-20 18:55] VITALS: BP 234/95
[2021-06-20 18:55] LABS: Chloride 104 mmol/L (98-107); Potassium 4.5 mmoL/L (3.5-5.1); Sodium 133 mmol/L (136-145)
--- NOTE | 2021-06-20 18:55 | PC.NURSE ---
[facility] called for stroke team, images power shared to them
[2021-06-20 18:57] LABS: Alanine Aminotransferase 12 U/L (12-78); Aspartate Amino Transferase 18 U/L (14-36)
[2021-06-20 18:58] LABS: Activated Partial Thrombo Time 25.9 seconds (22.8-30.6); Albumin Level 3.4 g/dl (3.5-5.0); Albumin/Globulin Ratio 1.2 (1.1-1.8); Alkaline Phosphatase 117 U/L (38-126); Anion Gap 6.5 mEq/L (5-15); Bilirubin,Total 0.2 mg/dl (0.2-1.3); Carbon Dioxide 27 mmol/L (22.0-30.0); Globulin 2.9 g/dL (1.3-3.2); Glucose 144 mg/dl (74-100); Prothrombin Time 10.3 seconds (10.1-12.5); Total Protein,Serum 6.3 g/dl (6.3-8.2)
[2021-06-20 19:03] LABS: Blood Urea Nitrogen 16 mg/dl (7-17); Creatinine Clearance Estimated 59 mL/min (50-200); Estimated Glomerular Filt Rate 48 ml/min (>60); GFR (African American) 58 ML/MIN (>60)
--- NOTE | 2021-06-20 19:05 | PC.NURSE ---
has no bed availability
--- NOTE | 2021-06-20 19:06 | PC.NURSE ---
Called at this time in regards to pt transfer. They said they would call back in 20 min d/t shift change.
--- NOTE | 2021-06-20 19:08 | PC.NURSE ---
Dr. Godfrey on phone with [facility] Stroke team
[2021-06-20 19:10] LABS: Coronavirus 19, PCR Not Detected (NotDetected); Influenza A, PCR Not Detected (NotDetected); Influenza B, PCR Not Detected (NotDetected)
--- NOTE | 2021-06-20 19:13 | PC.NURSE ---
Pt accepted to [facility] by as inpatient.
--- NOTE | 2021-06-20 19:15 | PC.NURSE ---
Raz notified for need for transfer
--- NOTE | 2021-06-20 19:20 | PC.NURSE ---
phone call to lab 14 mins until COVID test is finished
[2021-06-20 19:23] LABS: Appearance,Urine CLEAR (Clear); Bilirubin,Urine Negative (Negative); Blood, Urine 1+ (Negative); Color,Urine YELLOW (Yellow); Glucose,Urine (UA) 1+ (Negative); Ketones,Urine TRACE (Negative); Leukocyte Esterase,Urine Negative (Negative); Nitrate,Urine POSITIVE (Negative); Protein,Urine 3+ (Negative); Specific Gravity, Urine >= 1.030 (1.005-1.030); Urobilinogen,Urine 0.2 EU/dl (0.2)
[2021-06-20 19:25] LABS: Bacteria,Urine 4+ /lpf; RBC,Urine Occasional #/hpf (0-3)
--- NOTE | 2021-06-20 19:47 | PC.NURSE ---
Report called to [facility] at . Pt going to [facility], room 301
--- NOTE | 2021-06-20 19:48 | PC.NURSE ---
Raz leaving with pt at this time.
[2021-06-20 20:05] VITALS: BP 234/95; PULSE 78; RESP 20; TEMP 37.1; O2SAT 99
== END 2021-06-20 20:09 | disposition short-term general hospital (02) ==
PROVIDERS: Emergency Provider Emergency Medicine; PCP Family Medicine
DX: I69.320 Aphasia following cerebral infarction (principal); I10 Essential (primary) hypertension; Z87.891 Personal history of nicotine dependence; R29.717 NIHSS score 17; F41.8 Other specified anxiety disorders; E11.9 Type 2 diabetes mellitus without complications; K21.9 Gastro-esophageal reflux disease without esophagitis; Z88.2 Allergy status to sulfonamides; Z79.899 Other long term (current) drug therapy
CPT/HCPCS: 51702; 70450; 80053; 81001; 85025; 85610; 85730; 87086; 87088; 87186; 93005; 96374; 99285; C9803; U0003; U0005

== ENCOUNTER 2021-08-08 09:43 | Outpatient (CLI) | payer MEDICARE, OTHER, MEDICAID, SELFPAY ==
[2021-08-08 09:46] VITALS: BMI 27.8
[2021-08-08 10:24] LABS: Hematocrit 18.8 % (37.0-47.0)
--- NOTE | 2021-08-08 10:31 | PC.NURSE ---
critical called from lab, hemoglobin of 6.0. name, and lab result verified. Pt already has 2 units PRBCs ordered.
--- NOTE | 2021-08-08 13:19 | PC.NURSE ---
pt unable to receive blood transfusion due to new antibodies in type and cross. blood will need to be sent from [facility]. Pt to return at 0830 tomorrow to receive 2 units.
== END 2021-08-08 13:15 | disposition home or self-care (01) ==
LOC: INF 09:44
PROVIDERS: PCP Emergency Medicine; Visit Provider Emergency Medicine
DX: D64.9 Anemia, unspecified (principal)
CPT/HCPCS: 36415; 85014; 85018; 86850; 86870

== ENCOUNTER 2021-08-09 09:00 | Outpatient (CLI) | payer MEDICARE, OTHER, MEDICAID, SELFPAY ==
[2021-08-09] VITALS (21 sets, daily range): BP systolic 149–188; BP diastolic 53–75; PULSE 57–68; RESP 17–18; TEMP 36.3–36.4; O2SAT 97–99; BMI 60.5
[2021-08-09 15:30] LABS: Hematocrit 24.9 % (37.0-47.0); Hemoglobin 8.3 g/dL (12.2-16.2)
--- NOTE | 2021-08-09 18:20 | INFXCTL.NOTE ---
1820-spoke with assistant warehouse manager still awaiting transport back to assisted.
== END 2021-08-09 20:35 | disposition home or self-care (01) ==
LOC: INF 09:01
PROVIDERS: PCP Emergency Medicine; Visit Provider Emergency Medicine
DX: D64.9 Anemia, unspecified (principal)
CPT/HCPCS: 36430; 85014; 85018; P9016

== ENCOUNTER 2021-08-31 18:55 | Emergency (ER) | payer MEDICARE, OTHER, MEDICAID, SELFPAY ==
[2021-08-31 18:55] VITALS: BP 154/87; PULSE 70; RESP 16; TEMP 36.6; O2SAT 98; BMI 33.1
--- NOTE | 2021-08-31 19:34 | PC.NURSE ---
DAUGHTER STATES RT ARM IS ALWAYS SWOLLEN [facility] SENT TO ED FOR PAIN CONTROL
[2021-08-31 19:42] LABS: Basophils # 0.1 K/mm3 (0-0.2); Basophils % 0.8 % (0.1-2.0); Eosinophils # 0.2 K/mm3 (0.0-0.4); Eosinophils % 3.1 % (0.1-12.0); Hematocrit 23.2 % (37.0-47.0); Hemoglobin 7.4 g/dL (12.2-16.2); Lymphocytes # 0.9 K/mm3 (0.7-4.5); Lymphocytes % 14.5 % (10-50); Mean Corpuscular HGB Conc 31.8 g/dL (31.8-35.4); Mean Corpuscular Hemoglobin 30.4 pg (27.0-31.2); Mean Corpuscular Volume 95.5 fl (81-99); Mean Platelet Volume 8.7 fl (7.4-10.4); Monocytes # 0.5 K/mm3 (0.1-1.0); Monocytes % 7.3 % (1.7-9.3); Neutrophils # 4.7 K/mm3 (1.8-7.8); Neutrophils % 74.4 % (37.0-80.0); Platelet Count 340 K/mm3 (142-424); Red Blood Count 2.43 M/mm3 (4.20-5.40); Red Cell Distribution Width 18.5 % (11.5-17.5); White Blood Count 6.4 K/mm3 (4.8-10.8)
[2021-08-31 19:44] LABS: Chloride 96 mmol/L (98-107)
[2021-08-31 19:45] LABS: Potassium 4.1 mmoL/L (3.5-5.1); Sodium 135 mmol/L (136-145)
[2021-08-31 19:47] LABS: Alanine Aminotransferase 16 U/L (12-78); Alkaline Phosphatase 76 U/L (38-126); Aspartate Amino Transferase 19 U/L (14-36); Bilirubin,Total 0.3 mg/dl (0.2-1.3); Blood Urea Nitrogen 18 mg/dl (7-17); Creatinine Clearance Estimated 68 mL/min (50-200); Estimated Glomerular Filt Rate 61 ml/min (>60); GFR (African American) 74 ML/MIN (>60)
[2021-08-31 19:48] LABS: Albumin Level 3.2 g/dl (3.5-5.0); Albumin/Globulin Ratio 1.2 (1.1-1.8); Anion Gap 6.1 mEq/L (5-15); Calcium 7.9 mg/dl (8.4-10.2); Carbon Dioxide 37 mmol/L (22.0-30.0); Globulin 2.6 g/dL (1.3-3.2); Glucose 153 mg/dl (74-100); Total Protein,Serum 5.8 g/dl (6.3-8.2)
--- NOTE | 2021-08-31 20:37 | PC.NURSE ---
Dr. Swetha rodríguez for ED doctor
--- NOTE | 2021-08-31 20:52 | HMH.EDGENADL ---
ED Disposition Clinical Impression: Swelling of upper extremity Disposition: Home, Self-Care Condition on Discharge: Good Additional Instructions: Gabapentin as prescribed for neuropathic pain continue to use Tylenol for breakthrough pain. 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 Pt will be on lovenox until test is performed. Prescriptions: Enoxaparin Sodium [Lovenox 100mg/mL syringe] 90 mg SQ BID 5 Days #10 ml Prescription Printed Gabapentin [Neurontin 300mg capsule] 300 mg PO TID 10 Days #30 cap Prescription Printed Referrals: Randal Solano MD [Primary Care Provider] - - Critical Care Critical Care Time: No Attestation: On 08/31/21, the high probability of a clinically significant, sudden or life threatening deterioration of the following system(s) required my full and direct attention, intervention and personal management. The time I documented below is in addition to time spent performing reported procedures but includes the following listed in this critical care notation. Medical Decision Making - Medical Records Medical records reviewed: Yes: I reviewed the patient's medical records. - Ramses Inquiry Pt receiving controlled substance: No Vital Signs: 08/31/21 18:55 Temperature 97.9 F Temperature Source Oral Pulse Rate [Radial] 70 Respiratory Rate 16 Blood Pressure [Right Arm] 154/87 H Blood Pressure Mean [Right Arm] 109 Blood Pressure Position [Right Arm] Sitting 02 Sat by Pulse Oximetry 98 Oxygen Delivery Method Room Air - Lab Data Lab Results 08/31/21 19:30: WBC 6.4, RBC 2.43 L, Hgb 7.4 L, Hct 23.2 L, MCV 95.5, MCH 30.4, MCHC 31.8, RDW 18.5 H, Plt Count 340, MPV 8.7, Neut % (Auto) 74.4, Lymph % (Auto) 14.5, [place] % (Auto) 7.3, Eos % (Auto) 3.1, Baso % (Auto) 0.8, Neut # (Auto) 4.7, Lymph # (Auto) 0.9, [place] # (Auto) 0.5, Eos # (Auto) 0.2, Baso # (Auto) 0.1 08/31/21 19:30: Sodium 135 L, Potassium 4.1, Chloride 96 L, Carbon Dioxide 37 H, Anion Gap 6.1, BUN 18 H, Creatinine 0.90, Estimated Creat Clear 68, Estimated GFR 61, Est GFR ( Amer) 74, Glucose 153 H, Calcium 7.9 L, Total Bilirubin 0.3, AST 19, ALT 16, Alkaline Phosphatase 76, Total Protein 5.8 L, Albumin 3.2 L, Globulin 2.6, Albumin/Globulin Ratio 1.2 08/31/21 19:30: D-Dimer 1.09 H Result diagrams: 08/31/21 19:30 08/31/21 19:30 Medical Decision Narrative: 75-year-old female who presents from alf facility with concern for right upper extremity that swollen and painful. Suspect that she is got significant dependent edema with inability to use that arm due to a stroke and this is been ongoing for several months. Suspect she is got neuropathy and is complicating as her pain is throughout the fingers and burning. Discussed with Dr. Posada who is on-call for the nursing facility my plan of care and agree that that seemed reasonable to start her on low-dose gabapentin and Lovenox with plan for ultrasound on Thursday. General Adult HPI - General Chief complaint: PAIN Stated complaint: PAIN Time Seen by Provider: 08/31/21 20:53 Mode of Arrival: EMS Limitations: No Limitations Description of Symptoms (Recalled from ER Triage Doc. by RN): TO ED PER SQUAD SENT FOR EVAL DUE TO PAIN AND SWELLING RT ARM X 1 HR. DENIES ANY TRAUMA. RADIAL PULSE STRONG, CAP REFILL BRISK - History of Present Illness HPI narrative: 5-year-old female presents from nursing facility for chronic right arm pain that has been intractable. She also has swelling of the right upper extremity. Daughter states he has had swelling for months since she was at [facility] following her stroke. Right upper extremity was affected by stroke and she cannot straighten then on regular basis. There is nothing particularly different about it except the [facility] became concerned because they are unable to get her pain controlled. She typically takes Tylenol she is a d
[2021-08-31 20:54] LABS: D-Dimer 1.09 ug/mL (0.0-0.5)
--- NOTE | 2021-08-31 21:59 | PC.NURSE ---
Raz notified of need for transport back to [facility]
[2021-08-31 22:30] VITALS: BP 124/79; PULSE 87; RESP 20; TEMP 36.7; O2SAT 96
== END 2021-08-31 22:50 | disposition home or self-care (01) ==
PROVIDERS: Emergency Medicine; Emergency Provider Student in an Organized Health Care Education/Training Program; PCP Emergency Medicine
DX: M79.2 Neuralgia and neuritis, unspecified (principal); M79.621 Pain in right upper arm; M79.89 Other specified soft tissue disorders; D64.9 Anemia, unspecified; I10 Essential (primary) hypertension; I73.9 Peripheral vascular disease, unspecified; I25.10 Atherosclerotic heart disease of native coronary artery without angina pectoris; K21.9 Gastro-esophageal reflux disease without esophagitis; E78.5 Hyperlipidemia, unspecified; E11.9 Type 2 diabetes mellitus without complications; E03.9 Hypothyroidism, unspecified; A52.16 Charcot's arthropathy (tabetic); G89.29 Other chronic pain; G25.81 Restless legs syndrome; F32.A Depression, unspecified; F41.9 Anxiety disorder, unspecified; Z79.02 Long term (current) use of antithrombotics/antiplatelets; Z79.82 Long term (current) use of aspirin; Z79.899 Other long term (current) drug therapy; Z88.2 Allergy status to sulfonamides; Z88.8 Allergy status to other drugs, medicaments and biological substances; Z87.891 Personal history of nicotine dependence; Z82.49 Family history of ischemic heart disease and other diseases of the circulatory system; Z80.9 Family history of malignant neoplasm, unspecified
CPT/HCPCS: 80053; 85025; 85378; 96372; 96374; 99284

== ENCOUNTER 2021-09-05 07:17 | Inpatient (IN) | payer MEDICARE, OTHER, MEDICAID, SELFPAY ==
[2021-09-05] VITALS (29 sets, daily range): BP systolic 104–158; BP diastolic 38–70; PULSE 49–65; RESP 12–21; TEMP 32.8–36.7; O2SAT 89–99; BMI 39.4; BMI 30.9
--- NOTE | 2021-09-05 07:13 | ECG_ITS ---
APPROVED REPORT Exam: Resting ECG HR:52 bpm ECG Measurements Heart Rate 52 AXES SD 194 P 79 QRSd 113 QRS 83 QT 471 T 59 QTc 451 Conclusion SINUS BRADYCARDIA MODERATE INTRAVENTRICULAR CONDUCTION DELAY [110+ ms QRS DURATION] MODERATE ST DEPRESSION [0.05+ mV ST DEPRESSION] ABNORMAL ECG UNCONFIRMED REPORT Electronically signed by : Calvin Pablo MD 09/06/2021 17:32:25
[2021-09-05 07:34] LABS: ABG Base Excess 8.9 mmol/L (-2.4-2.3); ABG HCO3 33.2 mmhg (22.0-26.0); ABG Oxygen Saturation 83 % (90-100); ABG PH 7.43 mmol/L (7.35-7.45); ABG PO2 51.3 mmhg (80-100); ABG TCO2 34.8 mmhg (23-27)
[2021-09-05 07:35] LABS: Oxygen 5LPM %
--- NOTE | 2021-09-05 07:35 | PC.NURSE ---
Daughter at BS
[2021-09-05 07:37] LABS: ABG PCO2 51.3 mmhg (35.0-45.0)
[2021-09-05 07:38] LABS: Microscopic, Urine URINE MICROSCOPIC (MICROSCOPIC)
--- NOTE | 2021-09-05 07:41 | PC.NURSE ---
Addendum entered by Yolanda Ballard 09/05/21 07:43: this was at arrival at 07:16 Original Note: pt to ED room 2 by [facility] and transferred from EMS stretcher to ED stretcher with assist x 4; no complications. Dr. Solano at BS. Lupe Holt and Yolanda at BS hooking pt to monitor, performing EKG, checking blood glucose and attempting to start an IV.
[2021-09-05 07:42] LABS: Coronavirus 19, PCR Not Detected (NotDetected); Influenza A, PCR Not Detected (NotDetected); Influenza B, PCR Not Detected (NotDetected)
[2021-09-05 07:45] LABS: Appearance,Urine CLEAR (Clear); Bilirubin,Urine Negative (Negative); Blood, Urine Negative (Negative); Color,Urine YELLOW (Yellow); Glucose,Urine (UA) Negative (Negative); Ketones,Urine Negative (Negative); Leukocyte Esterase,Urine Negative (Negative); Nitrate,Urine Negative (Negative); Protein,Urine 1+ (Negative); Specific Gravity, Urine 1.025 (1.005-1.030); Urobilinogen,Urine 0.2 EU/dl (0.2)
[2021-09-05 07:48] LABS: Chloride 97 mmol/L (98-107)
[2021-09-05 07:49] LABS: Basophils % 0.5 % (0.1-2.0); Eosinophils # 0.2 K/mm3 (0.0-0.4); Eosinophils % 2.3 % (0.1-12.0); Lymphocytes # 1.5 K/mm3 (0.7-4.5); Lymphocytes % 16.6 % (10-50); Mean Corpuscular HGB Conc 31.8 g/dL (31.8-35.4); Mean Corpuscular Hemoglobin 30.7 pg (27.0-31.2); Mean Corpuscular Volume 96.4 fl (81-99); Mean Platelet Volume 8.3 fl (7.4-10.4); Monocytes # 0.6 K/mm3 (0.1-1.0); Monocytes % 6.5 % (1.7-9.3); Neutrophils # 6.6 K/mm3 (1.8-7.8); Neutrophils % 74.1 % (37.0-80.0); Platelet Count 320 K/mm3 (142-424); Potassium 4.5 mmoL/L (3.5-5.1); Red Blood Count 1.86 M/mm3 (4.20-5.40); Red Cell Distribution Width 18.9 % (11.5-17.5); Sodium 135 mmol/L (136-145); White Blood Count 8.9 K/mm3 (4.8-10.8)
[2021-09-05 07:51] LABS: Alanine Aminotransferase 24 U/L (12-78); Alkaline Phosphatase 70 U/L (38-126); Anion Gap 6.5 mEq/L (5-15); Aspartate Amino Transferase 32 U/L (14-36); Bilirubin,Total 0.2 mg/dl (0.2-1.3); Blood Urea Nitrogen 48 mg/dl (7-17); Carbon Dioxide 36 mmol/L (22.0-30.0); Estimated Glomerular Filt Rate 40 ml/min (>60); GFR (African American) 48 ML/MIN (>60); Lactic Acid 0.8 mmol/L (0.7-2.1)
[2021-09-05 07:52] LABS: Albumin Level 2.9 g/dl (3.5-5.0); Albumin/Globulin Ratio 1.2 (1.1-1.8); Calcium 7.7 mg/dl (8.4-10.2); Globulin 2.5 g/dL (1.3-3.2); Glucose 52 mg/dl (74-100); Total Protein,Serum 5.4 g/dl (6.3-8.2)
[2021-09-05 07:53] LABS: Hematocrit 17.9 % (37.0-47.0)
--- NOTE | 2021-09-05 07:53 | PC.NURSE ---
notified JAIME HEBERT of critical hbg and hct that was called by lab at this time.
[2021-09-05 07:57] LABS: Hemoglobin 5.7 g/dL (12.2-16.2)
[2021-09-05 07:58] LABS: Bacteria,Urine 2+ /lpf; Squamous Epithelial Cell,Urine Occasional #/hpf (0-5)
--- NOTE | 2021-09-05 08:00 | HMH.EDAMS ---
ED Disposition Clinical Impression: HCAP (healthcare-associated pneumonia), Severe sepsis with acute organ dysfunction, Obesity (BMI 30-39.9), Type 2 diabetes mellitus with diabetic neuropathy, without long-term current use of insulin Anemia Qualifiers: Anemia type: unspecified type Qualified Code(s): D64.9 - Anemia, unspecified Respiratory failure with hypercapnia Qualifiers: Chronicity: acute on chronic Qualified Code(s): J96.22 - Acute and chronic respiratory failure with hypercapnia Hypothyroidism Qualifiers: Hypothyroidism type: acquired Qualified Code(s): E03.9 - Hypothyroidism, unspecified CVA (cerebral vascular accident) Qualifiers: CVA mechanism: unspecified Qualified Code(s): I63.9 - Cerebral infarction, unspecified Disposition: Admitted As Inpatient Condition on Discharge: Serious - Critical Care Critical Care Time: No Attestation: On 09/05/21, the high probability of a clinically significant, sudden or life threatening deterioration of the following system(s) required my full and direct attention, intervention and personal management. The time I documented below is in addition to time spent performing reported procedures but includes the following listed in this critical care notation. Medical Decision Making - Medical Records Medical records reviewed: Yes: I reviewed the patient's medical records. - Ramses Inquiry Pt receiving controlled substance: No Vital Signs: 09/05/21 07:15 09/05/21 07:16 09/05/21 07:20 Temperature 94.6 F L Temperature Source Rectal Pulse Rate 52 L Pulse Rate [Radial] 53 L Respiratory Rate 14 16 21 Blood Pressure 150/61 H Blood Pressure [Right Arm] 150/61 H Blood Pressure Mean Blood Pressure Mean [Right Arm] 90 Blood Pressure Source Automatic Cuff Blood Pressure Position [Right Arm] Sitting 02 Sat by Pulse Oximetry 89 L 93 L Oxygen Delivery Method Nasal Cannula Oxygen Flow Rate (LPM) 6 09/05/21 07:36 09/05/21 08:01 09/05/21 08:04 Temperature 91.0 F L 94.6 F L Temperature Source Pulse Rate 54 L 52 L Pulse Rate [Radial] Respiratory Rate 14 21 21 Blood Pressure 132/48 L 122/45 L Blood Pressure [Right Arm] Blood Pressure Mean 76 70 Blood Pressure Mean [Right Arm] Blood Pressure Source Blood Pressure Position [Right Arm] 02 Sat by Pulse Oximetry 98 Oxygen Delivery Method Vapotherm Oxygen Flow Rate (LPM) 09/05/21 08:47 09/05/21 08:49 Temperature 95.4 F L Temperature Source Pulse Rate 51 L Pulse Rate [Radial] Respiratory Rate 20 Blood Pressure 112/38 L Blood Pressure [Right Arm] Blood Pressure Mean 62 Blood Pressure Mean [Right Arm] Blood Pressure Source Blood Pressure Position [Right Arm] 02 Sat by Pulse Oximetry 98 99 Oxygen Delivery Method Vapotherm Vapotherm Oxygen Flow Rate (LPM) 30 - Lab Data Lab results reviewed: Yes: I reviewed the patient's lab results. Lab Results 09/05/21 07:20: WBC 8.9, RBC 1.86 L*, Hgb 5.7 L*, Hct 17.9 L*, MCV 96.4, MCH 30.7, MCHC 31.8, RDW 18.9 H, Plt Count 320, MPV 8.3, Neut % (Auto) 74.1, Lymph % (Auto) 16.6, [place] % (Auto) 6.5, Eos % (Auto) 2.3, Baso % (Auto) 0.5, Neut # (Auto) 6.6, Lymph # (Auto) 1.5, [place] # (Auto) 0.6, Eos # (Auto) 0.2, Baso # (Auto) 0.0 09/05/21 07:20: Sodium 135 L, Potassium 4.5, Chloride 97 L, Carbon Dioxide 36 H, Anion Gap 6.5, BUN 48 H, Creatinine 1.30 H, Estimated GFR 40 L, Est GFR ( Amer) 48 L, Glucose 52 L, Calcium 7.7 L, Total Bilirubin 0.2, AST 32, ALT 24, Alkaline Phosphatase 70, Total Protein 5.4 L, Albumin 2.9 L, Globulin 2.5, Albumin/Globulin Ratio 1.2 09/05/21 07:20: Lactate 0.8 09/05/21 07:20: Troponin I 0.07 H 09/05/21 07:20: Thyroxine (T4) 8.0 09/05/21 07:20: NT-Pro-B Natriuret Pep 8340 H 09/05/21 07:28: O2 % 5lpm, ABG pH 7.43, ABG pCO2 51.3 H, ABG pO2 51.3 L, ABG HCO3 33.2 H, ABG Total CO2 34.8 H, ABG O2 Saturation 83 L*, ABG Base Excess 8.9 H 09/05/21 07:30: Urine Color Yellow, Urine Appearance Clear,
--- NOTE | 2021-09-05 08:02 | XR_ITS ---
FINAL REPORT CLINICAL HISTORY: ams, SOA FINDINGS: A single portable view of the chest was obtained. There is cardiomegaly. There is pulmonary vascular congestion. The mediastinum is within normal limits. There are bilateral pulmonary opacities, pneumonia versus edema. There are small pleural effusions. The bony thorax is intact. IMPRESSION: Bilateral pneumonia versus edema. Small pleural effusions. Reviewed, Interpreted and Dictated by Griffin Calixto III, MD Transcribed by Yue Grant Authenticated and [facility]
[2021-09-05 08:03] LABS: POC Glucose,Bedside 157 (70-110)
[2021-09-05 08:04] LABS: Occult Blood,Stool Positive (Negative)
--- NOTE | 2021-09-05 08:19 | PC.NURSE ---
lab at for type and screen blood draw
[2021-09-05 08:28] LABS: Troponin I 0.07 ng/ml (0.00-0.034)
--- NOTE | 2021-09-05 08:31 | PC.NURSE ---
ER at speaking with patients family
--- NOTE | 2021-09-05 08:32 | PC.NURSE ---
notified RT of ER requesting placing pt on vapotherm
--- NOTE | 2021-09-05 08:35 | PC.NURSE ---
ER MD Solano request wants pt started on Vancomycin and Cefepime, request that they be dose per pharmacy. Notified Luis in pharmacy of this request.
--- NOTE | 2021-09-05 08:35 | PC.NURSE ---
Spoke with Sofya in Care management regarding patient admission
[2021-09-05 08:36] LABS: NT Pro Brain Natriuretic Pep. 8340 pg/mL (0-450)
--- NOTE | 2021-09-05 08:40 | PC.NURSE ---
Respiratory at BS
--- NOTE | 2021-09-05 08:40 | HMH.PHACONS ---
- Pharmacy Consult Date: 09/05/21 Time: 08:40 Referring provider: DR KEVIN Reason for Consult:: VANCOMYCIN DOSING CONSULT Allergies and ADEs:: Allergies Allergy/AdvReac Type Severity Reaction Status Date / Time ciprofloxacin [From Cipro] Allergy Severe Hives Verified 02/05/21 16:46 indomethacin Allergy Mild Vomiting Verified 02/05/21 16:46 levofloxacin [From Levaquin] Allergy Mild Unknown Verified 02/05/21 16:46 allergy reaction meloxicam [From Mobic] Allergy Mild Unknown Verified 02/05/21 16:46 allergy reaction prednisone Allergy Mild Unknown Verified 02/05/21 16:46 allergy reaction ropinirole Allergy Mild Unknown Verified 02/05/21 16:46 allergy reaction Sulfa (Sulfonamide Allergy Mild Rash Verified 02/05/21 16:46 Antibiotics) sulfamethoxazole Allergy Mild Rash Verified 02/05/21 16:46 [From Bactrim] trazodone Allergy Mild Unknown Verified 02/05/21 16:46 allergy reaction trimethoprim [From Bactrim] Allergy Mild Rash Verified 02/05/21 16:46 levothyroxine sodium Allergy Unknown Difficulty Verified 02/05/21 16:46 Breathing amlodipine [From Norvasc] Allergy swelling/ed Verified 02/05/21 16:46 pancho Home Medications:: Home Medications Medication Instructions Recorded Confirmed Type lancets See Rx Instructions .ROUTE 11/03/19 02/05/21 Rx .MEDSUPPLY #100 each blood sugar diagnostic See Rx Instructions .ROUTE 11/07/19 02/05/21 Rx .MEDSUPPLY #100 each blood-glucose meter See Rx Instructions .ROUTE 11/07/19 02/05/21 Rx .MEDSUPPLY #1 each lorazepam 0.5 mg tablet 0.5 mg PO BID PRN #60 tab 08/02/21 09/05/21 Rx carbamide peroxide 6.5 % ear drops 5 drp OT Q12H 4 Days #15 ml 08/16/21 Rx Amlodipine Besylate [Amlodipine 10 mg PO DAILY 09/05/21 09/05/21 History 10mg Tab] Aspirin [Aspirin 81mg chewable 81 mg PO DAILY 09/05/21 09/05/21 History tab] Atorvastatin Calcium [Lipitor 80mg 80 mg PO HS 09/05/21 09/05/21 History Tab] Clopidogrel Bisulfate [Clopidogrel 75 mg PO DAILY 09/05/21 09/05/21 History 75mg Tab] Cyanocobalamin (Vitamin B-12) 500 mcg PO DAILY 09/05/21 09/05/21 History [Vitamin B-12] Enoxaparin Sodium [Lovenox 90 mg SQ BID 09/05/21 09/05/21 History 100mg/mL syringe] Furosemide [Furosemide 40MG tAB*] 40 mg PO DAILY 09/05/21 09/05/21 History Gabapentin [Neurontin 300mg 300 mg PO TID 09/05/21 09/05/21 History capsule] Glimepiride 4 mg PO DAILY 09/05/21 09/05/21 History Guaifenesin/Dextromethorphan 5 ml PO Q8H 09/05/21 09/05/21 History [Robitussin Cough-Chest Dm Liq] Hydralazine HCl 50 mg PO TID 09/05/21 09/05/21 History Insulin Regular, Human [Humulin R 0 unit SQ ACHS 09/05/21 09/05/21 History Insulin 100 Units/mL 10mL Vial] Levothyroxine Sodium [Synthroid] 125 mcg PO DAILY 09/05/21 09/05/21 History Meclizine HCl 12.5 mg PO BID 09/05/21 09/05/21 History Metoprolol Succinate [Metoprolol 100 mg PO DAILY 09/05/21 09/05/21 History Succinate 100mg Tablet*] Pantoprazole Sodium 40 mg PO DAILY 09/05/21 09/05/21 History Pramipexole Di-HCl [Pramipexole 1.5 mg PO HS 09/05/21 09/05/21 History Dihydrochloride] Sennosides 8.6 mg PO DAILY 09/05/21 09/05/21 History levETIRAcetam [Keppra 500mg tablet] 500 mg PO BID 09/05/21 09/05/21 History lisinopriL [Lisinopril] 40 mg PO DAILY 09/05/21 09/05/21 History predniSONE [Prednisone 20mg 40 mg PO DAILY 09/05/21 09/05/21 History Tab] Height: 1.63 m Weight: 104.326 kg Laboratory Results:: Laboratory Results - last 24 hr 09/05/21 07:20: WBC 8.9, RBC 1.86 L*, Hgb 5.7 L*, Hct 17.9 L*, MCV 96.4, MCH 30.7, MCHC 31.8, RDW 18.9 H, Plt Count 320, MPV 8.3, Neut % (Auto) 74.1, Lymph % (Auto) 16.6, [place] % (Auto) 6.5, Eos % (Auto) 2.3, Baso % (Auto) 0.5, Neut # (Auto) 6.6, Lymph # (Auto) 1.5, [place] # (Auto) 0.6, Eos # (Auto) 0.2, Baso # (Auto) 0.0 09/05/21 07:20: Sodium 135 L, Potassium 4.5, Chloride 97 L, Carbon Dioxide 36 H, Anion Gap 6.5, BUN 48 H, Creatini
--- NOTE | 2021-09-05 09:01 | PC.NURSE ---
attempted to call report, nurse will need to call back
--- NOTE | 2021-09-05 09:15 | PC.NURSE ---
pt with ams responds to painful stimuli
--- NOTE | 2021-09-05 09:30 | PC.NURSE ---
report called to floor
--- NOTE | 2021-09-05 10:00 | PC.NURSE ---
daughter at bedside updated on plan of care.
--- NOTE | 2021-09-05 10:03 | HMH.HP ---
*Admission Date: 09/05/21 *Chief complaint: Altered Mental Status *History of present illness: Female patient presented to the [facility] emergency department via EMS from [facility] for reports of altered mental status. Staff there reports patient would open eyes to painful stimuli only increased generalized edema, she does wear O2 continuously at 2 L per nasal cannula. Staff reports blood sugar was low and given packets of sugar exact reading unknown, EMS reports blood sugar 60. She does have a history of CVA with right-sided weakness Rectal temperature 94.6, respirations 21, community-acquired pneumonia, patient on Vapotherm. Unable to receive full amount of fluid resuscitation due to concern for ongoing heart failure, edema, bradycardia. She was given 3 mL/kg for a total of 150 cc an hour for 2 hours to equal 300 cc. Patient will be evaluated after bolus Long discussion with patient's daughter regarding the patient's medical status. Daughter states patient wishes are to be DNR and severity of patient illness discussed with patient's daughter. She states that her mother has been declining over the past 6 to 8 months and has several strokes in the past 4 months. [facility] History I have reviewed the patient's past medical history: Yes Medical History: Reports:: Anxiety, Coronary Artery Disease, Depression, Diabetes Mellitus Type 2, Gastroesophageal Reflux Disease(GERD), Hyperlipidemia, Hypertension, Peripheral Artery Disease Denies:: Cancer, Diabetes Mellitus Type 1, Internal Pacemaker, MRSA, Seizures *Have you ever received a pneumonia vaccine?: Yes *Have you received a flu vaccine this season?: Yes Other Medical History: Reports: Anemia, Hypothyroidism. Denies: Blood Transfusion Reaction Laterality Cases: Bilateral: Tonsillectomy, Other Other Surgeries: Yes: No Previous Surgery, Angiogram, Cholecystectomy, Hernia Repair, Thyroidectomy, Tubal Ligation, Other. No: Pacemaker Amputation: No Fractures: Yes (LEFT FOOT) - *Social History Last grade of school completed: 11th or 12th Smoking Status: Former smoker Tobacco Type: cigarettes # Packs/Day (cigarettes): 0 Alcohol Intake: never Alcohol Intake Frequency:: 0-2 drinks per day Substance Use Type: denies use Last Used Substance: unknown *Occupational Status:: retired Housing: [facility] Household Members: none *Travel in the last 8 weeks: None - Psychiatric History Pschychiatric History:: Reports:: Anxiety, Depression Family Hx:: Cancer, Stroke Review of Systems - Review of Systems Review of systems:: unable to obtain Patient is nonresponsive, non verbal and does not answer questions Meds Home Medications Medication Instructions Recorded Confirmed Type lorazepam 0.5 mg tablet 0.5 mg PO BID PRN #60 tab 08/02/21 09/05/21 Rx Amlodipine Besylate [Amlodipine 10 mg PO DAILY 09/05/21 09/05/21 History 10mg Tab] Aspirin [Aspirin 81mg chewable 81 mg PO DAILY 09/05/21 09/05/21 History tab] Atorvastatin Calcium [Lipitor 80mg 80 mg PO HS 09/05/21 09/05/21 History Tab] Clopidogrel Bisulfate [Clopidogrel 75 mg PO DAILY 09/05/21 09/05/21 History 75mg Tab] Cyanocobalamin (Vitamin B-12) 500 mcg PO DAILY 09/05/21 09/05/21 History [Vitamin B-12] Furosemide [Furosemide 40MG tAB*] 40 mg PO DAILY 09/05/21 09/05/21 History Glimepiride 4 mg PO DAILY 09/05/21 09/05/21 History Guaifenesin/Dextromethorphan 5 ml PO Q8HP PRN 09/05/21 09/05/21 History [Robitussin Cough-Chest Dm Liq] Hydralazine HCl 50 mg PO TID 09/05/21 09/05/21 History Insulin Regular, Human [Humulin R 0 unit SQ ACHS 09/05/21 09/05/21 History Insulin 100 Units/mL 10mL Vial] Levothyroxine Sodium [Synthroid] 125 mcg PO DAILY 09/05/21 09/05/21 History Meclizine HCl 12.5 mg PO BID 09/05/21 09/05/21 History Metoprolol Succinate [Metoprolol 100 mg PO DAILY 09/05/21 09/05/21 History Succinate 100mg Tablet*] Nicotine [Nicotine Patch 7 mg TD DAILY 09/05/21 09/05/21
--- NOTE | 2021-09-05 10:05 | CA_ITS ---
FINAL REPORT CLINICAL HISTORY: swelling FINDINGS: Color Doppler, duplex Doppler and compression sonography of the bilateral upper extremity venous system was performed. There is no evidence of venous thrombosis involving the bilateral internal jugular, subclavian or axillary veins. The bilateral brachial, cephalic, radial and ulnar veins are patent without evidence of thrombosis. IMPRESSION: No evidence of venous thrombosis bilateral upper extremities. Reviewed, Interpreted and Dictated by Griffin Calixto III, MD Transcribed by Lupe Stacy Authenticated and [facility]
--- NOTE | 2021-09-05 10:05 | CA_ITS ---
APPROVED REPORT EXAM: Comprehensive 2D, Doppler, and color-flow Echocardiogram Botany Teacher: Janis Schultz RVT Ht: 5 ft 4 in Wt: 230lbs BSA: 2.08 BP: 115/42 mmHg Indications: CHF,CAD,GERD,HX CVA,PNEUMONIA,DM, EX SMOKER,EDEMA,HTN,HLD TDS-PT IS UNRESPONSIVE 2D Dimensions LVOT 1.78 cm (M/F) 1.5-2.5 LA Volume 52.70 mL LA Volume Index 25.45 mL/m2 (M/F) 16-34 M-Mode Dimensions RVDd 3.22 cm (0.9-2.6) LA Diam 3.91 cm (1.9-4.0) LVDd 5.29 cm (3.5-5.7) Ao Diam 2.92 cm (2.0-3.7) LVDs 3.29 cm (3.5-5.7) IVSd 1.54 cm (0.6-1.1) PWd 0.86 cm (0.6-1.1) EF (Teich) 67.50% FS 37.80% EDV (Teich) 134.80 mL TAPSE 2.02 (<1.7) ESV (Teich) 43.80 mL LV Diastology E Decel Time 230.00 (160-240 msec) E/A Ratio 1.9 MED E' 7.30 (< 7 cm/sec) E'/MED E' Ratio 15.96 (>14) LAT E' 8.50 (<10 cm/sec) E/LAT E' Ratio 13.71 (>14) Aortic Valve AO Peak GR. 4.70 mmHg Mitral Valve MV E Max Zeus. 117.00 (40-130 cm/s) MV A Velocity 61.00 (40-130 cm/s) E/A Ratio 1.93 MV Decel. Time 230.00 (160-240 ms) MV PHT 67.00 ms Pulmonary Valve PV Peak Velocity 79.00 (50-150 cm/s) Tricuspid Valve TR P. Velocity 286.00 cm/s RAP Estimate 10.00 mmHg RVSP 42.70 mmHg Left Ventricle Left atrium is mildly enlarged, left ventricle is normal size, mild concentric left ventricular hypertrophy, estimated ejection fraction 55% with no regional wall motion abnormality, diastolic parameters are inconclusive. Right Ventricle Right atrium and right ventricle moderately enlarged with normal contractility. Aortic Valve Aortic valve is minimally thickened and fibrosed there is no aortic stenosis aortic insufficiency. Mitral Valve Mitral valve leaflets are minimally thickened, there is mild mitral regurgitation. Tricuspid Valve Tricuspid grossly normal, there is mild tricuspid rotation, tricuspid rotation jet velocity is inadequate for calculation of the right ventricular systolic pressure. Pulmonic Valve Pulmonic valve is poorly visualized. Great Vessels Aortic root is normal size. Inferior vena cava is mildly dilated without significant inspiratory collapse. Pericardium Small pericardial effusion noted There is left-sided pleural effusion seen. Conclusion 1. Biatrial enlargement, normal left ventricular size, mild concentric left ventricular hypertrophy, estimated ejection fraction 55% with no regional wall motion abnormality, diastolic parameters are inconclusive. 2. Moderately enlarged right ventricle with normal contractility. 3. Mild mitral and tricuspid regurgitation. 4. Small pericardial effusion and left-sided pleural effusion seen. 5. Inferior vena cava is dilated without significant inspiratory collapse. Electronically signed by : Viet Garcia MD 09/06/2021 15:54:50
--- NOTE | 2021-09-05 10:08 | SW/DCPLANNER ---
Addendum entered by Luly Myers 09/09/21 15:36: COVID swab for this patient is negative. Addendum entered by Luly Myers 09/09/21 09:44: The plan for this patient is to return to [facility] level of care today. Liss [facility] has requested a COVID swab prior to patient returning. Addendum entered by Luly Myers 09/06/21 13:06: Family stated that they previously have been in contact with Debbi at [facility] for a [facility] Medicaid bed. I have attempted to contact Admissions at [facility]: no answer/VM left at this time. Original Note: This patient currently reside at [facility]: per [facility] patient is SNF level of care. I will continue to follow up with patient/facility until medically stable for discharge.
--- NOTE | 2021-09-05 10:16 | PC.NURSE ---
2 techs from the floor along with respiratory are at BS about to take patient to 2nd floor. Daughter at BS
[2021-09-05 10:17] LABS: POC Glucose,Bedside 136 (70-110)
--- NOTE | 2021-09-05 10:24 | PC.NURSE ---
Pt arrived to the floor at this time
--- NOTE | 2021-09-05 10:53 | HMH.PHAINT ---
MEDICATION RECONCILIATION COMPLETED ON PATIENT USING MAR FROM [facility]. -ALCIDES JENNINGS, CELENAD
--- NOTE | 2021-09-05 10:54 | HMH.PHAVTE ---
[facility] Pharmacy VTE Monitoring - Patient Demographics Admission date: 09/05/21 Report Date: 09/05/21 Time: 10:54 Allergies/Adverse Reactions: Patient Allergies ciprofloxacin [From Cipro] Allergy (Severe, Verified 02/05/21 16:46) Hives indomethacin Allergy (Mild, Verified 02/05/21 16:46) Vomiting levofloxacin [From Levaquin] Allergy (Mild, Verified 02/05/21 16:46) Unknown allergy reaction meloxicam [From Mobic] Allergy (Mild, Verified 02/05/21 16:46) Unknown allergy reaction prednisone Allergy (Mild, Verified 02/05/21 16:46) Unknown allergy reaction ropinirole Allergy (Mild, Verified 02/05/21 16:46) Unknown allergy reaction Sulfa (Sulfonamide Antibiotics) Allergy (Mild, Verified 02/05/21 16:46) Rash sulfamethoxazole [From Bactrim] Allergy (Mild, Verified 02/05/21 16:46) Rash trazodone Allergy (Mild, Verified 02/05/21 16:46) Unknown allergy reaction trimethoprim [From Bactrim] Allergy (Mild, Verified 02/05/21 16:46) Rash levothyroxine sodium Allergy (Unknown, Verified 02/05/21 16:46) Difficulty Breathing amlodipine [From Norvasc] Allergy (Verified 02/05/21 16:46) swelling/edema Height: 1.7 m Weight: 89.556 kg Patient Problems: Current Active Problems CVA (cerebral vascular accident) (Acute) HCAP (healthcare-associated pneumonia) (Acute) Severe sepsis with acute organ dysfunction (Acute) Anemia (Acute) Respiratory failure with hypercapnia (Acute) Obesity (BMI 30-39.9) (Acute) Type 2 diabetes mellitus with diabetic neuropathy, without long-term current use of insulin (Acute) Hypothyroidism (Chronic) - VTE Risk Labs: VTE Related Lab Results Hgb 5.7 g/dL (12.2-16.2) L* 09/05/21 07:20 Hct 17.9 % (37.0-47.0) L* 09/05/21 07:20 Plt Count 320 K/mm3 (142-424) 09/05/21 07:20 BUN 48 mg/dl (7-17) H 09/05/21 07:20 Creatinine 1.30 mg/dl (0.52-1.04) H 09/05/21 07:20 - Prophylaxis VTE Prophylaxis Ordered?: Yes Types of VTE Prophylaxis: TEDS Knee High Location of Applied Device: Bilateral Lower Extremeties
--- NOTE | 2021-09-05 11:19 | CT_ITS ---
FINAL REPORT CLINICAL HISTORY: AMS COMPARISON: June 20, 2021 FINDINGS: Axial images of the head were obtained without contrast. Coronal reformatted images were also obtained. This study was performed with techniques to keep radiation doses as low as reasonably achievable (ALARA). Individualized dose reduction techniques using automated exposure control or adjustment of mA and/or kV according to the patient's size were employed. There is generalized age-appropriate atrophy. Periventricular low-attenuation areas are seen consistent with mild chronic ischemic changes. There is stable left hemisphere encephalomalacia. There is no evidence of intracranial hemorrhage or mass. There is no evidence of acute infarct. There is no evidence of shift of the midline structures. No skull abnormality is seen on the bone window images. There are multiple opacified mastoid air cells. IMPRESSION: Atrophy and mild periventricular chronic ischemic changes. No acute intracranial abnormality identified. Multiple opacified mastoid air cells. Reviewed, Interpreted and Dictated by Griffin Calixto III, MD Transcribed by Praveen Dobson Authenticated and [facility]
[2021-09-05 11:34] LABS: POC Glucose,Bedside 119 (70-110)
--- NOTE | 2021-09-05 12:00 | CT_ITS ---
FINAL REPORT TECHNIQUE: Axial images were obtained from the lung apex to the mid abdomen by computed tomography. Coronal reformatted images were obtained. This study was performed with techniques to keep radiation doses as low as reasonably achievable, (ALARA). Individualized dose reduction techniques using automated exposure control or adjustment of mA and/or kV according to the patient''s size were employed. CLINICAL HISTORY: worsening soa. increased oxygen demand, pleural effusion FINDINGS: There are multiple small bilateral axillary lymph nodes. There is no hilar or mediastinal adenopathy. Cardiomegaly is noted. There is a small pericardial effusion. There are large right and moderate left pleural effusions. Limited images of the upper abdomen are without acute abnormality. There is bilateral atelectasis. There are bilateral pulmonary ground-glass opacities. Anasarca is noted. IMPRESSION: Right greater than left pleural effusions. Bilateral pulmonary ground-glass opacities could represent edema or pneumonia. Reviewed, Interpreted and Dictated by Griffin Calixto III, MD Transcribed by Praveen Dobson Authenticated and [facility]
[2021-09-05 12:03] LABS: Troponin I 0.05 ng/ml (0.00-0.034)
--- NOTE | 2021-09-05 12:20 | PC.NURSE ---
spoke with fam cuadrarn on second floor, notified her that pt viz peri notified ER of head Ct finding, no hemorrhage, old infarct. Notifying jerry mccracken also
--- NOTE | 2021-09-05 13:22 | HMH.PULMCON ---
*Admission Date: 09/05/21 *Reason for consult:: Acute on chronic hypoxic respiratory failure *History of present illness: Patient altered, only responding to painful stimuli. Much of the history obtained from patient's daughter and chart review. Ms. Plunkett is a 75-year-old female history of prior ischemic strokes, seizure currently on Keppra 500 twice daily, hypothyroidism on levothyroxine 125 daily chronic hypoxic respiratory failure on 2 L oxygen therapy, diastolic heart failure with EF of 55% from her prior echo, diabetes on insulin presented to the hospital after was found altered and pulmonary was called for further management [facility] History Medical History: Reports:: Anxiety, Congestive Heart Failure, Coronary Artery Disease, Depression, Diabetes Mellitus Type 2, Gastroesophageal Reflux Disease(GERD), Hyperlipidemia, Hypertension, Peripheral Artery Disease Denies:: Cancer, Diabetes Mellitus Type 1, Internal Pacemaker, MRSA, Seizures *Have you ever received a pneumonia vaccine?: Yes *Have you received a flu vaccine this season?: Yes Other Medical History: Reports: Anemia, Arthritis, Hypothyroidism. Denies: Blood Transfusion Reaction Laterality Cases: Bilateral: Tonsillectomy, Other Other Surgeries: Yes: No Previous Surgery, Angiogram, Cholecystectomy, Hernia Repair, Thyroidectomy (partial), Tubal Ligation, Other. No: Pacemaker Amputation: No Fractures: Yes (LEFT FOOT) - *Social History Smoking Status: Former smoker Tobacco Type: cigarettes # Packs/Day (cigarettes): 0 Alcohol Intake: never Substance Use Type: denies use *Occupational Status:: retired Housing: [facility] Household Members: none *Travel in the last 8 weeks: None - Psychiatric History Pschychiatric History:: Reports:: Anxiety, Depression Family Hx:: Cancer, Stroke ROS - Review of Systems Review of systems:: unable to obtain Patient altered not responding to commands, only responding to painful stimuli Meds Home Medications Medication Instructions Recorded Confirmed Type lorazepam 0.5 mg tablet 0.5 mg PO BID PRN #60 tab 08/02/21 09/05/21 Rx Amlodipine Besylate [Amlodipine 10 mg PO DAILY 09/05/21 09/05/21 History 10mg Tab] Aspirin [Aspirin 81mg chewable 81 mg PO DAILY 09/05/21 09/05/21 History tab] Atorvastatin Calcium [Lipitor 80mg 80 mg PO HS 09/05/21 09/05/21 History Tab] Clopidogrel Bisulfate [Clopidogrel 75 mg PO DAILY 09/05/21 09/05/21 History 75mg Tab] Cyanocobalamin (Vitamin B-12) 500 mcg PO DAILY 09/05/21 09/05/21 History [Vitamin B-12] Furosemide [Furosemide 40MG tAB*] 40 mg PO DAILY 09/05/21 09/05/21 History Glimepiride 4 mg PO DAILY 09/05/21 09/05/21 History Guaifenesin/Dextromethorphan 5 ml PO Q8HP PRN 09/05/21 09/05/21 History [Robitussin Cough-Chest Dm Liq] Hydralazine HCl 50 mg PO TID 09/05/21 09/05/21 History Insulin Regular, Human [Humulin R 0 unit SQ ACHS 09/05/21 09/05/21 History Insulin 100 Units/mL 10mL Vial] Levothyroxine Sodium [Synthroid] 125 mcg PO DAILY 09/05/21 09/05/21 History Meclizine HCl 12.5 mg PO BID 09/05/21 09/05/21 History Metoprolol Succinate [Metoprolol 100 mg PO DAILY 09/05/21 09/05/21 History Succinate 100mg Tablet*] Nicotine [Nicotine Patch 7 mg TD DAILY 09/05/21 09/05/21 History 7mg/24Hrs] Pantoprazole Sodium 40 mg PO DAILY 09/05/21 09/05/21 History Pramipexole Di-HCl [Pramipexole 1.5 mg PO HS 09/05/21 09/05/21 History Dihydrochloride] Sennosides 8.6 mg PO DAILY 09/05/21 09/05/21 History gabapentin 300 mg capsule 300 mg PO TID #90 cap 09/05/21 Rx levETIRAcetam [Keppra 500mg tablet] 500 mg PO BID 09/05/21 09/05/21 History lisinopriL [Lisinopril] 40 mg PO DAILY 09/05/21 09/05/21 History predniSONE [Prednisone 20mg 40 mg PO DAILY 09/05/21 09/05/21 History Tab] Allergies Allergy/AdvReac Type Severity Reaction Status Date / Time ciprofloxacin [From Cipro] Allergy Severe Hives Verified 02/05/21 16:46 indomethacin Allergy Mild Vomiting Verified 11
[2021-09-05 15:00] LABS: Basophils % 0.6 % (0.1-2.0); Chloride 95 mmol/L (98-107); Eosinophils # 0.2 K/mm3 (0.0-0.4); Eosinophils % 3.2 % (0.1-12.0); Lymphocytes # 1.4 K/mm3 (0.7-4.5); Lymphocytes % 19.7 % (10-50); Mean Corpuscular HGB Conc 30.8 g/dL (31.8-35.4); Mean Corpuscular Hemoglobin 30.3 pg (27.0-31.2); Mean Corpuscular Volume 98.3 fl (81-99); Mean Platelet Volume 8.5 fl (7.4-10.4); Monocytes # 0.6 K/mm3 (0.1-1.0); Monocytes % 7.8 % (1.7-9.3); Neutrophils # 4.8 K/mm3 (1.8-7.8); Neutrophils % 68.6 % (37.0-80.0); Platelet Count 264 K/mm3 (142-424); Potassium 4.9 mmoL/L (3.5-5.1); Red Cell Distribution Width 19.1 % (11.5-17.5); Sodium 134 mmol/L (136-145)
[2021-09-05 15:02] LABS: Alanine Aminotransferase 24 U/L (12-78); Alkaline Phosphatase 58 U/L (38-126); Aspartate Amino Transferase 28 U/L (14-36); Blood Urea Nitrogen 49 mg/dl (7-17); Creatinine Clearance Estimated 52 mL/min (50-200); Estimated Glomerular Filt Rate 40 ml/min (>60); GFR (African American) 48 ML/MIN (>60)
[2021-09-05 15:03] LABS: Albumin Level 2.5 g/dl (3.5-5.0); Albumin/Globulin Ratio 1.1 (1.1-1.8); Anion Gap 9.9 mEq/L (5-15); Calcium 7.2 mg/dl (8.4-10.2); Carbon Dioxide 34 mmol/L (22.0-30.0); Globulin 2.2 g/dL (1.3-3.2); Glucose 118 mg/dl (74-100); Hematocrit 15.8 % (37.0-47.0); Total Protein,Serum 4.7 g/dl (6.3-8.2)
[2021-09-05 15:04] LABS: Hemoglobin 4.9 g/dL (12.2-16.2)
[2021-09-05 15:07] LABS: Prothrombin Time 10.3 seconds (10.1-12.5)
[2021-09-05 15:09] LABS: Bilirubin,Total 0.1 mg/dl (0.2-1.3)
[2021-09-05 15:15] LABS: Troponin I 0.06 ng/ml (0.00-0.034)
[2021-09-05 15:24] LABS: Creatine Kinase 39 U/L (30-135); Magnesium 2.4 mg/dl (1.6-2.3); Phosphorous 6.1 mg/dl (2.5-4.5)
[2021-09-05 15:41] LABS: Free T4 (Free Thyroxine) 1.57 ng/dl (0.78-2.19)
[2021-09-05 17:28] LABS: POC Glucose,Bedside 116 (70-110)
--- NOTE | 2021-09-05 18:19 | PC.NURSE ---
PT IS RESTING IN BED WITH FAMILY AT BEDSIDE. PT HAS BEEN UNRESPONSIVE/OBTUNDED T/O THE SHIFT. DNR STATUS WAS VERIFIED WITH DAUGHTER OVER THE PHONE. O2 SATURATION HAS MAINTAINED 95-97% ON VAPOTHERM 25 L 50% FIO2. PT HAS BEEN TURNED AND REPOSITIONED Q2H. ORDERED AN ADDITIONAL 40 MG IV PROTONIX IVP ONE TIME AND A CONTINUOUS PROTONIX DRIP. LUNG SOUNDS DIMINISHED WITH SCATTERED RHONCHI. ABDOMEN SOFT/NON TENDER WITH ACTIVE BOWEL SOUNDS. HEELS ELEVATED. WOUND NOTED TO THE LEFT HEEL. ON ASSESSMENT IT WAS NOTED THAT PT HAD UNEQUAL PUPILS. CT/HEAD ORDERED PER [facility]. LAB NOTIFIED FOR UPDATE ON THE BLOOD AND THEY STATED IT SHOULD BE ARRIVING ANY TIME. WILL CONTINUE TO MONITOR.
--- NOTE | 2021-09-05 19:06 | PC.WOUNDNOTE ---
BLISTER/WOUND NOTED TO THE LEFT HEEL
--- NOTE | 2021-09-05 21:30 | PC.NURSE ---
starting first of 2 ordered units of prbc without K antibody, verified with [facility] KRAMER, starting at rate of 75mL/hr
--- NOTE | 2021-09-05 21:59 | PC.NURSE ---
no transfusion reaction noted, increased rate of prbc to 150mL/hr
[2021-09-05 22:12] LABS: POC Glucose,Bedside 174 (70-110)
[2021-09-06] VITALS (20 sets, daily range): BP systolic 144–175; BP diastolic 57–75; PULSE 60–81; RESP 12–21; TEMP 36.6–36.9; O2SAT 91–98; BMI 30.9
[2021-09-06 04:10] LABS: Basophils # 0.1 K/mm3 (0-0.2); Basophils % 0.9 % (0.1-2.0); Eosinophils # 0.1 K/mm3 (0.0-0.4); Eosinophils % 0.6 % (0.1-12.0); Hematocrit 25.1 % (37.0-47.0); Lymphocytes # 0.8 K/mm3 (0.7-4.5); Lymphocytes % 9.9 % (10-50); Mean Corpuscular HGB Conc 32.3 g/dL (31.8-35.4); Mean Corpuscular Volume 92.7 fl (81-99); Monocytes # 0.4 K/mm3 (0.1-1.0); Monocytes % 4.5 % (1.7-9.3); Neutrophils # 6.8 K/mm3 (1.8-7.8); Platelet Count 308 K/mm3 (142-424); Red Blood Count 2.71 M/mm3 (4.20-5.40); Red Cell Distribution Width 18.4 % (11.5-17.5)
[2021-09-06 04:17] LABS: Hemoglobin 8.2 g/dL (12.2-16.2)
[2021-09-06 04:19] LABS: Chloride 100 mmol/L (98-107); Sodium 134 mmol/L (136-145)
[2021-09-06 04:20] LABS: Potassium 4.9 mmoL/L (3.5-5.1)
[2021-09-06 04:23] LABS: Anion Gap 7.9 mEq/L (5-15); Blood Urea Nitrogen 49 mg/dl (7-17); Calcium 7.8 mg/dl (8.4-10.2); Carbon Dioxide 31 mmol/L (22.0-30.0); Creatinine Clearance Estimated 62 mL/min (50-200); Estimated Glomerular Filt Rate 48 ml/min (>60); GFR (African American) 58 ML/MIN (>60); Glucose 161 mg/dl (74-100)
--- NOTE | 2021-09-06 06:24 | PC.NURSE ---
pt rested well overall this shift, mild restlessness toward end of shift but mental status and speech improving, right pupil larger than left, pt received 2 units prbc this shift and increased hemoglobin to 8.2 (from 4.9 yesterday), VSS throughout shift, will continue to monitor
[2021-09-06 07:11] LABS: POC Glucose,Bedside 178 (70-110)
--- NOTE | 2021-09-06 09:35 | HMH.ACPN2 ---
Internal Medicine - PN: Subj *Date: 09/06/21 *Time: 17:37 Interval history: 75-year-old female patient resting quietly in bed, she is more alert today and recognize physician per name. Vapotherm intact and weaning as tolerated. Daughter is in room and discussed medical conditions, she denies any questions/comments/complaints. She did receive 2 units of packed red blood cells yesterday this a.m. hemoglobin is 8.2. Pulmonology following Exam Vital signs and Labs for Last 24 Hours: Temp Pulse Resp BP Pulse Ox 98.4 F 67 12 156/59 H 97 09/06/21 04:00 09/06/21 06:35 09/06/21 04:00 09/06/21 04:00 09/06/21 06:35 Laboratory Results - last 24 hr 09/05/21 08:20: Blood Type A Positive, Antibody Screen Negative, Crossmatch (AHG) See Detail 09/05/21 10:10: POC Glucose 136 H 09/05/21 11:22: Troponin I 0.05 H 09/05/21 11:27: POC Glucose 119 H 09/05/21 14:30: Troponin I 0.06 H 09/05/21 14:30: Free T4 1.57 09/05/21 14:30: TSH 19.90 H 09/05/21 14:30: PT 10.3, INR 0.90 09/05/21 14:30: WBC 7.0, RBC 1.60 L*, Hgb 4.9 L*, Hct 15.8 L*, MCV 98.3, MCH 30.3, MCHC 30.8 L, RDW 19.1 H, Plt Count 264, MPV 8.5, Neut % (Auto) 68.6, Lymph % (Auto) 19.7, [place] % (Auto) 7.8, Eos % (Auto) 3.2, Baso % (Auto) 0.6, Neut # (Auto) 4.8, Lymph # (Auto) 1.4, [place] # (Auto) 0.6, Eos # (Auto) 0.2, Baso # (Auto) 0.0 09/05/21 14:30: Sodium 134 L, Potassium 4.9, Chloride 95 L, Carbon Dioxide 34 H, Anion Gap 9.9, BUN 49 H, Creatinine 1.30 H, Estimated Creat Clear 52, Estimated GFR 40 L, Est GFR ( Amer) 48 L, Glucose 118 H D, Calcium 7.2 L, Total Bilirubin 0.1 L, AST 28, ALT 24, Alkaline Phosphatase 58, Total Protein 4.7 L, Albumin 2.5 L D, Globulin 2.2, Albumin/Globulin Ratio 1.1 09/05/21 14:30: Phosphorus 6.1 H, Magnesium 2.4 H, Total Creatine Kinase 39 09/05/21 17:20: POC Glucose 116 H 09/05/21 22:04: POC Glucose 174 H 09/06/21 03:58: WBC 8.0, RBC 2.71 L D, Hgb 8.2 L D, Hct 25.1 L, MCV 92.7, MCH 30.0, MCHC 32.3, RDW 18.4 H, Plt Count 308, MPV 8.0, Neut % (Auto) 84.0 H, Lymph % (Auto) 9.9 L, [place] % (Auto) 4.5, Eos % (Auto) 0.6, Baso % (Auto) 0.9, Neut # (Auto) 6.8, Lymph # (Auto) 0.8, [place] # (Auto) 0.4, Eos # (Auto) 0.1, Baso # (Auto) 0.1 09/06/21 03:58: Sodium 134 L, Potassium 4.9, Chloride 100, Carbon Dioxide 31 H, Anion Gap 7.9, BUN 49 H, Creatinine 1.10 H, Estimated Creat Clear 62, Estimated GFR 48 L, Est GFR ( Amer) 58 L D, Glucose 161 H D, Calcium 7.8 L 09/06/21 06:04: POC Glucose 178 H I & O for Last 24 hours: Intake & Output 09/03/21 09/04/21 09/05/21 09/06/21 23:59 23:59 23:59 23:59 Intake Total 1112 / 1894 1091 / 1091 Output Total 625 / 865 635 / 635 Balance 487 / 1029 456 / 456 Weight 197 lb 7 oz Microbiology Reports for the Last 24 Hours: Microbiology 09/05/21 07:30 Urine,Catheterized Urine Culture - Preliminary NO GROWTH AFTER 24 HOURS - Constitutional no acute distress, chronically ill appearing - *Routine HEENT Exam Head: Present: normocephalic Eye: Present: EOMI ENT: Present: mucous membranes moist - *Routine Neck Exam Present: trachea midline. Absent: tracheal deviation - *Routine Respiratory Exam Present: crackles. Absent: accessory muscle use - *Routine Cardiovascular Exam Present: RRR - *Routine Abdominal Exam Present: soft, normoactive bowel sounds. Absent: tenderness, firm - *Routine Extremities Exam Present: edema, full ROM. Absent: cyanosis, clubbing - *Routine Skin Exam Present: intact, dry. Absent: cyanosis, erythema - *Routine Neurological Exam Present: alert, altered mental status - Routine Psychiatric Exam Present: unable to assess Assessment and Plan (1) CVA (cerebral vascular accident) Status: Acute Qualifiers: CVA mechanism: unspecified Qualified Code(s): I63.9 - Cerebral infarction, unspecified Category: Medical Code(s): I63.9 - Cerebral infarction, unspecified (2) HCAP (healthcare-associated pneumonia) Status:
--- NOTE | 2021-09-06 09:45 | HMH.PULMPN ---
Internal Medicine - PN: Subj *Date: 09/06/21 *Time: 13:07 Interval history: No acute respiratory vents overnight. Exam - Constitutional Constitutional:: Present: no acute distress, comfortable - HENMT Exam HENMT: Present: normocephalic - Eye Exam Eyes:: Present: normal appearance both eyes and related structures - Neck Exam Neck:: Present: normal visual inspection - Respiratory Exam Respiratory:: Present: able to speak in complete sentences, respiratory distress, decreased breath sounds, crackles. Absent: wheezing - Cardiovascular Exam Cardiac:: Present: S1, S2 - GI Exam GI:: Present: soft - Skin Exam Skin: Present: warm, no rash - Neurological Exam Neurological: Present: alert, awake - Extremities Exam Extremities: Present: no cyanosis, no clubbing, edema Assessment and Plan (1) CVA (cerebral vascular accident) Status: Acute Qualifiers: CVA mechanism: unspecified Qualified Code(s): I63.9 - Cerebral infarction, unspecified Category: Medical Code(s): I63.9 - Cerebral infarction, unspecified (2) HCAP (healthcare-associated pneumonia) Status: Acute Category: Medical Code(s): J18.9 - Pneumonia, unspecified organism (3) Respiratory failure with hypercapnia Status: Acute Qualifiers: Chronicity: acute on chronic Qualified Code(s): J96.22 - Acute and chronic respiratory failure with hypercapnia Category: Medical Code(s): J96.92 - Respiratory failure, unspecified with hypercapnia (4) Obesity (BMI 30-39.9) Status: Acute Category: Medical Code(s): E66.9 - Obesity, unspecified (5) Anemia Status: Acute Qualifiers: Anemia type: unspecified type Qualified Code(s): D64.9 - Anemia, unspecified Category: Medical Code(s): D64.9 - Anemia, unspecified (6) Hypothyroidism Status: Chronic Qualifiers: Hypothyroidism type: acquired Qualified Code(s): E03.9 - Hypothyroidism, unspecified Category: Medical Code(s): E03.9 - Hypothyroidism, unspecified (7) Edema Status: Acute Qualifiers: Edema type: localized Qualified Code(s): R60.0 - Localized edema Category: Medical Code(s): R60.9 - Edema, unspecified (8) Severe sepsis with acute organ dysfunction Status: Acute Category: Medical Code(s): A41.9 - Sepsis, unspecified organism; R65.20 - Severe sepsis without septic shock - Assessment and plan all Dx Assessment and Plan for all problems:: #Acute on Chronic hypoxic respiratory failure: #Altered mentation: Patient altered, only responding to painful stimuli. Much of the history obtained from patient's daughter and chart review. 75-year-old female history of prior ischemic strokes, seizure currently on Keppra 500 twice daily, hypothyroidism on levothyroxine 125 daily chronic hypoxic respiratory failure on 2 L oxygen therapy, diastolic heart failure with EF of 55% from her prior echo, diabetes on insulin presented to the hospital after was found altered. As per the patient's daughter patient was found to be hypoglycemic initially. Admission labs also noted profound anemia with a hemoglobin of 5.7. CT head no acute abnormality/hemorrhage. CT chest showed prominent right airspace along with bilateral effusions right greater than left. Physical examination also with bilateral diffuse edema 3+ bilateral lower extremities. BNP on admission elevated at 8340. No evidence of leukocytosis. ABG on admission hypoxic respiratory failure, hypercarbia noted with a normal pH. Pupils unequal, right greater than left sluggish reaction to light. Auscultation bilateral clear breath sounds with no wheezing, decreased breath sounds basally. Abdomen soft, distended. Interval Update: Clinical status improved. Patient now awake and following commands. S/P RBC transfusion Resp status remaoned stable on HFNC No DVT on BL UE extremeties F/U echo report Renal funciton stable -appropriate response to diuretics. > 150ml UO/hr TSH elevated. Mag &
--- NOTE | 2021-09-06 10:02 | HMH.PHACONS ---
- Pharmacy Consult Date: 09/06/21 Time: 10:02 Referring provider: DR. KEVIN Reason for Consult:: VANCOMYCIN DOSE CHANGE Allergies and ADEs:: Allergies Allergy/AdvReac Type Severity Reaction Status Date / Time ciprofloxacin [From Cipro] Allergy Severe Hives Verified 02/05/21 16:46 indomethacin Allergy Mild Vomiting Verified 02/05/21 16:46 levofloxacin [From Levaquin] Allergy Mild Unknown Verified 02/05/21 16:46 allergy reaction meloxicam [From Mobic] Allergy Mild Unknown Verified 02/05/21 16:46 allergy reaction prednisone Allergy Mild Unknown Verified 02/05/21 16:46 allergy reaction ropinirole Allergy Mild Unknown Verified 02/05/21 16:46 allergy reaction Sulfa (Sulfonamide Allergy Mild Rash Verified 02/05/21 16:46 Antibiotics) sulfamethoxazole Allergy Mild Rash Verified 02/05/21 16:46 [From Bactrim] trazodone Allergy Mild Unknown Verified 02/05/21 16:46 allergy reaction trimethoprim [From Bactrim] Allergy Mild Rash Verified 02/05/21 16:46 levothyroxine sodium Allergy Unknown Difficulty Verified 02/05/21 16:46 Breathing amlodipine [From Norvasc] Allergy swelling/ed Verified 02/05/21 16:46 pancho Home Medications:: Home Medications Medication Instructions Recorded Confirmed Type lorazepam 0.5 mg tablet 0.5 mg PO BID PRN #60 tab 08/02/21 09/05/21 Rx Amlodipine Besylate [Amlodipine 10 mg PO DAILY 09/05/21 09/05/21 History 10mg Tab] Aspirin [Aspirin 81mg chewable 81 mg PO DAILY 09/05/21 09/05/21 History tab] Atorvastatin Calcium [Lipitor 80mg 80 mg PO HS 09/05/21 09/05/21 History Tab] Clopidogrel Bisulfate [Clopidogrel 75 mg PO DAILY 09/05/21 09/05/21 History 75mg Tab] Cyanocobalamin (Vitamin B-12) 500 mcg PO DAILY 09/05/21 09/05/21 History [Vitamin B-12] Furosemide [Furosemide 40MG tAB*] 40 mg PO DAILY 09/05/21 09/05/21 History Glimepiride 4 mg PO DAILY 09/05/21 09/05/21 History Guaifenesin/Dextromethorphan 5 ml PO Q8HP PRN 09/05/21 09/05/21 History [Robitussin Cough-Chest Dm Liq] Hydralazine HCl 50 mg PO TID 09/05/21 09/05/21 History Insulin Regular, Human [Humulin R 0 unit SQ ACHS 09/05/21 09/05/21 History Insulin 100 Units/mL 10mL Vial] Levothyroxine Sodium [Synthroid] 125 mcg PO DAILY 09/05/21 09/05/21 History Meclizine HCl 12.5 mg PO BID 09/05/21 09/05/21 History Metoprolol Succinate [Metoprolol 100 mg PO DAILY 09/05/21 09/05/21 History Succinate 100mg Tablet*] Nicotine [Nicotine Patch 7 mg TD DAILY 09/05/21 09/05/21 History 7mg/24Hrs] Pantoprazole Sodium 40 mg PO DAILY 09/05/21 09/05/21 History Pramipexole Di-HCl [Pramipexole 1.5 mg PO HS 09/05/21 09/05/21 History Dihydrochloride] Sennosides 8.6 mg PO DAILY 09/05/21 09/05/21 History gabapentin 300 mg capsule 300 mg PO TID #90 cap 09/05/21 Rx levETIRAcetam [Keppra 500mg tablet] 500 mg PO BID 09/05/21 09/05/21 History lisinopriL [Lisinopril] 40 mg PO DAILY 09/05/21 09/05/21 History predniSONE [Prednisone 20mg 40 mg PO DAILY 09/05/21 09/05/21 History Tab] Height: 1.7 m Weight: 89.556 kg Laboratory Results:: Laboratory Results - last 24 hr 09/05/21 08:20: Blood Type A Positive, Antibody Screen Negative, Crossmatch (AHG) See Detail 09/05/21 10:10: POC Glucose 136 H 09/05/21 11:22: Troponin I 0.05 H 09/05/21 11:27: POC Glucose 119 H 09/05/21 14:30: Troponin I 0.06 H 09/05/21 14:30: Free T4 1.57 09/05/21 14:30: TSH 19.90 H 09/05/21 14:30: PT 10.3, INR 0.90 09/05/21 14:30: WBC 7.0, RBC 1.60 L*, Hgb 4.9 L*, Hct 15.8 L*, MCV 98.3, MCH 30.3, MCHC 30.8 L, RDW 19.1 H, Plt Count 264, MPV 8.5, Neut % (Auto) 68.6, Lymph % (Auto) 19.7, [place] % (Auto) 7.8, Eos % (Auto) 3.2, Baso % (Auto) 0.6, Neut # (Auto) 4.8, Lymph # (Auto) 1.4, [place] # (Auto) 0.6, Eos # (Auto) 0.2, Baso # (Auto) 0.0 09/05/21 14:30: Sodium 134 L, Potassium 4.9, Chloride 95 L, Carbon Dioxide 34 H, Anion Gap 9.9, BUN 49 H, Creatinine 1.30 H, Estimated Creat Clear 52, Estimated
[2021-09-06 11:23] LABS: POC Glucose,Bedside 144 (70-110)
--- NOTE | 2021-09-06 12:28 | HMH.SLDYSPHA ---
Speech & Language Evaluation Speech/Language Dysphagia Evaluation Start: 09/06/21 12:16 Freq: ONCE Status: Active Protocol: Document 09/06/21 12:16 YASH (Rec: 09/06/21 12:28 [email or web address] [id number]) Dysphagia Assess/Goals/Plan Assessment Date of Evaluation: 09/06/21 Evaluation Type Initial Certification Assessment/Problems Possible aspiration, hx of aspiration pneumonia. Does Patient Qualify for Service Yes Qualify/Failure Comment Based on the results of the bedside swallow evaluation, pt would benefit from skilled ST services to follow up for continued diet texture analysis and possible diet upgrade. Recommendations PHYSICIAN CERTIFICATION: The specified therapy services are required, authorized, and reviewed every 30 days. Pt will be seen # times/week 1 for # weeks 2 Diet Recommendations Mechanical Soft Liquid Type Recommendations Normal/Thin SL Swallow Guidelines Standard Aspiration Prec.,Eat at slow rate Dysphagia Swallow Precautions/Strategies Sitting Upright (90 deg),Small Bites and Sips,Alternate Liquids/Solids Place Food on Either side of Mouth Plan Anticipate reaching STG in # weeks 1 Anticipate reaching LTG in # weeks 2 Pt/Guardian verbally ack understanding Yes of dx/prognosis/goals Pt/Guardian verbally ack understanding Yes of/consent to tx prog G -code Required No STG-Other Comment/Non-Specific Pt will tolerate trials of least restrictive diet w/o overt s/sxs of aspiration on 100% of trials. College Associate Goals Diet mechanical soft with Liquids Thin Liquids Education Instructions provided Diet recommendations discussed with pt, family, nursing, and care management, all of whom express understanding. Pt/Caregiver able to recall information Able to recall/restate Reinforcement needed No Speech & Language HPI History Present Illness Description of Patient Problem P tis a 75 y.o. female presenting to [facility] via EMS from [facility] with c/o AMS. She had previously been on a mechanical soft diet with thin liquids following multiple
[2021-09-06 13:36] LABS: Lactate Dehydrogenase 249 U/L (313-618)
[2021-09-06 20:36] LABS: POC Glucose,Bedside 249 (70-110)
[2021-09-07] VITALS (14 sets, daily range): BP systolic 152–180; BP diastolic 56–81; PULSE 61–80; RESP 14–21; TEMP 35.9–36.8; O2SAT 91–97
[2021-09-07 06:22] LABS: POC Glucose,Bedside 218 (70-110)
[2021-09-07 06:32] LABS: Basophils # 0.1 K/mm3 (0-0.2); Basophils % 0.8 % (0.1-2.0); Eosinophils # 0.1 K/mm3 (0.0-0.4); Hematocrit 24.4 % (37.0-47.0); Hemoglobin 8.4 g/dL (12.2-16.2); Lymphocytes # 0.8 K/mm3 (0.7-4.5); Lymphocytes % 7.6 % (10-50); Mean Corpuscular HGB Conc 34.5 g/dL (31.8-35.4); Mean Corpuscular Volume 92.8 fl (81-99); Mean Platelet Volume 8.1 fl (7.4-10.4); Monocytes # 0.4 K/mm3 (0.1-1.0); Monocytes % 3.9 % (1.7-9.3); Neutrophils # 9.3 K/mm3 (1.8-7.8); Neutrophils % 86.7 % (37.0-80.0); Platelet Count 354 K/mm3 (142-424); Red Blood Count 2.63 M/mm3 (4.20-5.40); Red Cell Distribution Width 18.7 % (11.5-17.5); White Blood Count 10.8 K/mm3 (4.8-10.8)
[2021-09-07 06:38] LABS: MANUAL DIFFERENTIAL MANUAL DIFFERENTIAL (MANUAL DIFF)
[2021-09-07 06:52] LABS: Chloride 105 mmol/L (98-107); Sodium 138 mmol/L (136-145)
[2021-09-07 06:53] LABS: Potassium 4.4 mmoL/L (3.5-5.1)
[2021-09-07 06:55] LABS: Blood Urea Nitrogen 44 mg/dl (7-17); Creatinine Clearance Estimated 68 mL/min (50-200); Estimated Glomerular Filt Rate 54 ml/min (>60); GFR (African American) 65 ML/MIN (>60)
[2021-09-07 06:56] LABS: Anion Gap 9.4 mEq/L (5-15); Calcium 7.6 mg/dl (8.4-10.2); Carbon Dioxide 28 mmol/L (22.0-30.0); Glucose 216 mg/dl (74-100)
[2021-09-07 09:34] LABS: Lymphocytes % 10 % (10-50); Monocytes % 2 % (2-9); Neutrophils % 87 % (42-76); Platelet Estimate Normal; Total Cells Counted 100
[2021-09-07 09:35] LABS: RBC Morphology Normal
--- NOTE | 2021-09-07 10:54 | HMH.ACPN2 ---
Internal Medicine - PN: Subj *Date: 09/07/21 *Time: 10:54 Interval history: doing better more alert Exam Vital signs and Labs for Last 24 Hours: Temp Pulse Resp BP Pulse Ox 98.2 F 69 16 166/78 H 95 09/07/21 08:00 09/07/21 09:58 09/07/21 09:58 09/07/21 08:00 09/07/21 08:00 Laboratory Results - last 24 hr 09/05/21 14:30: Cortisol 6.9 09/06/21 03:58: Lactate Dehydrogenase 249 L 09/06/21 11:15: POC Glucose 144 H 09/06/21 20:29: POC Glucose 249 H 09/07/21 06:14: POC Glucose 218 H 09/07/21 06:25: WBC 10.8 D, RBC 2.63 L, Hgb 8.4 L, Hct 24.4 L, MCV 92.8, MCH 32.0 H, MCHC 34.5, RDW 18.7 H, Plt Count 354, MPV 8.1, Neut % (Auto) 86.7 H, Lymph % (Auto) 7.6 L, [place] % (Auto) 3.9, Eos % (Auto) 1.0, Baso % (Auto) 0.8, Neut # (Auto) 9.3 H, Lymph # (Auto) 0.8, [place] # (Auto) 0.4, Eos # (Auto) 0.1, Baso # (Auto) 0.1, Total Counted 100, Neutrophils % (Manual) 87 H, Band Neutrophils % 1.0, Lymphocytes % (Manual) 10, Monocytes % (Manual) 2, Platelet Estimate Normal, RBC Morphology Normal 09/07/21 06:25: Sodium 138, Potassium 4.4, Chloride 105, Carbon Dioxide 28, Anion Gap 9.4, BUN 44 H, Creatinine 1.00, Estimated Creat Clear 68, Estimated GFR 54 L, Est GFR ( Amer) 65, Glucose 216 H, Calcium 7.6 L I & O for Last 24 hours: Intake & Output 09/04/21 09/05/21 09/06/21 09/07/21 11:59 11:59 11:59 11:59 Intake Total 2203 / 2203 2881 / 2881 Output Total 1260 / 1260 1500 / 1500 Balance 943 / 943 1381 / 1381 Weight 197 lb 7 oz 197 lb 5.019 oz Microbiology Reports for the Last 24 Hours: Microbiology 09/05/21 07:30 Urine,Catheterized Urine Culture - Final NO GROWTH AFTER 48 HOURS 09/05/21 07:20 Blood Blood Culture - Preliminary NO GROWTH AFTER 48 HOURS 09/05/21 07:20 Blood Blood Culture - Preliminary NO GROWTH AFTER 48 HOURS - Constitutional no acute distress, obese - *Routine HEENT Exam Head: Present: normocephalic Eye: Present: EOMI, PERRL ENT: Present: mucous membranes dry - *Routine Neck Exam Absent: JVD - *Routine Respiratory Exam Present: decreased breath sounds - *Routine Cardiovascular Exam Present: RRR, murmur, S4 - *Routine Abdominal Exam Present: soft - *Routine Extremities Exam Present: edema - *Routine Skin Exam Present: intact - *Routine Neurological Exam s/p cva with rt sided palsy - Routine Psychiatric Exam Present: unable to assess Assessment and Plan (1) CVA (cerebral vascular accident) Status: Acute Qualifiers: CVA mechanism: unspecified Qualified Code(s): I63.9 - Cerebral infarction, unspecified Category: Medical Code(s): I63.9 - Cerebral infarction, unspecified (2) HCAP (healthcare-associated pneumonia) Status: Acute Category: Medical Code(s): J18.9 - Pneumonia, unspecified organism (3) Respiratory failure with hypercapnia Status: Acute Qualifiers: Chronicity: acute on chronic Qualified Code(s): J96.22 - Acute and chronic respiratory failure with hypercapnia Category: Medical Code(s): J96.92 - Respiratory failure, unspecified with hypercapnia (4) Obesity (BMI 30-39.9) Status: Acute Category: Medical Code(s): E66.9 - Obesity, unspecified (5) Anemia Status: Acute Qualifiers: Anemia type: unspecified type Qualified Code(s): D64.9 - Anemia, unspecified Category: Medical Code(s): D64.9 - Anemia, unspecified (6) Hypothyroidism Status: Chronic Qualifiers: Hypothyroidism type: acquired Qualified Code(s): E03.9 - Hypothyroidism, unspecified Category: Medical Code(s): E03.9 - Hypothyroidism, unspecified (7) Edema Status: Acute Qualifiers: Edema type: localized Qualified Code(s): R60.0 - Localized edema Category: Medical Code(s): R60.9 - Edema, unspecified (8) Severe sepsis with acute organ dysfunction Status: Acute Category: Medical Code(s): A41.9 - Sepsi
[2021-09-07 11:08] LABS: POC Glucose,Bedside 187 (70-110)
--- NOTE | 2021-09-07 13:11 | PC.NURSE ---
PT'S SBP HAS BEEN BETWEEN 165-185 SINCE ABOUT 0400 THIS AM. QUALITY ASSURANCE ASSESSOR (ROSELIA) PAGED. NEW ORDERS RECEIVED. 10MG LISINOPRIL PO NOW AND 10MG LISINOPRIL PO DAILY TO START TOMORROW. MD REQUESTED TO ENSURE THAT A BMP WAS ORDERED FOR THE AM. PT IS CURRENTLY ALERT AND ORIENTED. SHE HAS NO C/O HEADACHE AND IS ASYMPTOMATIC AT THIS TIME. NSR ON TELE WITH A RATE OF 70.
[2021-09-07 16:14] LABS: POC Glucose,Bedside 229 (70-110)
--- NOTE | 2021-09-07 17:36 | PC.NURSE ---
PT'S SBP IS A LITTLE BETTER THIS AFTERNOON AND MAINTAINING IN THE 160'S. SHE IS ALERT AND ORIENTED TO PERSON WITH CONFUSION AT TIMES. SHE HAS BILATERAL +1 PITTING TO HER LEGS. ARAUZ IS DRAINING CLEAR YELLOW URINE WITH SEDIMENT IN ADEQUATE AMOUNTS. SHE HAS HAD 1 MODERATE DARK BM THIS SHIFT. REMAINS A Q2HR TURN. NO OTHER COMPLAINTS. VSS.
[2021-09-08] VITALS (10 sets, daily range): BP systolic 160–181; BP diastolic 59–75; PULSE 59–87; RESP 13–21; TEMP 36.4–37; O2SAT 93–96; BMI 30.9
--- NOTE | 2021-09-08 05:25 | PC.NURSE ---
pt rested well overnight, pt VSS, weems in place with adequate UOP with sediment, pt eating and drinking independently, pt oriented to self and location only, but is less confused than prior shifts, no pain reported, will continue to monitor
[2021-09-08 07:37] LABS: Basophils # 0.1 K/mm3 (0-0.2); Basophils % 0.7 % (0.1-2.0); Eosinophils # 0.2 K/mm3 (0.0-0.4); Eosinophils % 1.6 % (0.1-12.0); Hematocrit 27.9 % (37.0-47.0); Hemoglobin 8.8 g/dL (12.2-16.2); Lymphocytes # 1.1 K/mm3 (0.7-4.5); Lymphocytes % 8.5 % (10-50); Mean Corpuscular HGB Conc 31.5 g/dL (31.8-35.4); Mean Corpuscular Hemoglobin 30.1 pg (27.0-31.2); Mean Corpuscular Volume 95.7 fl (81-99); Mean Platelet Volume 8.4 fl (7.4-10.4); Monocytes # 0.8 K/mm3 (0.1-1.0); Neutrophils # 10.8 K/mm3 (1.8-7.8); Neutrophils % 83.2 % (37.0-80.0); Platelet Count 431 K/mm3 (142-424); Red Blood Count 2.92 M/mm3 (4.20-5.40); Red Cell Distribution Width 18.9 % (11.5-17.5)
[2021-09-08 07:48] LABS: POC Glucose,Bedside 191 (70-110)
[2021-09-08 07:48] LABS: POC Glucose,Bedside 264 (70-110)
[2021-09-08 07:59] LABS: Chloride 107 mmol/L (98-107); Sodium 140 mmol/L (136-145)
[2021-09-08 08:02] LABS: Blood Urea Nitrogen 32 mg/dl (7-17); Calcium 8.3 mg/dl (8.4-10.2); Carbon Dioxide 26 mmol/L (22.0-30.0); Creatinine Clearance Estimated 68 mL/min (50-200); Estimated Glomerular Filt Rate 70 ml/min (>60); GFR (African American) 84 ML/MIN (>60); Glucose 208 mg/dl (74-100)
--- NOTE | 2021-09-08 10:49 | HMH.ACPN ---
Internal Medicine - PN: Subj *Date: 09/08/21 *Time: 10:49 Exam Vital signs and Labs for Last 24 Hours: Temp Pulse Resp BP Pulse Ox 97.8 F 78 20 172/62 H 95 09/08/21 08:00 09/08/21 08:00 09/08/21 08:00 09/08/21 08:00 09/08/21 08:00 Laboratory Results - last 24 hr 09/07/21 10:57: POC Glucose 187 H 09/07/21 16:06: POC Glucose 229 H 09/07/21 20:42: POC Glucose 264 H 09/08/21 06:02: POC Glucose 191 H 09/08/21 07:17: WBC 13.0 H, RBC 2.92 L, Hgb 8.8 L, Hct 27.9 L, MCV 95.7, MCH 30.1, MCHC 31.5 L, RDW 18.9 H, Plt Count 431 H, MPV 8.4, Neut % (Auto) 83.2 H, Lymph % (Auto) 8.5 L, [place] % (Auto) 6.0, Eos % (Auto) 1.6, Baso % (Auto) 0.7, Neut # (Auto) 10.8 H, Lymph # (Auto) 1.1, [place] # (Auto) 0.8, Eos # (Auto) 0.2, Baso # (Auto) 0.1 09/08/21 07:17: Sodium 140, Potassium 4.0, Chloride 107, Carbon Dioxide 26, Anion Gap 11.0, BUN 32 H D, Creatinine 0.80, Estimated Creat Clear 68, Estimated GFR 70, Est GFR ( Amer) 84 D, Glucose 208 H, Calcium 8.3 L I & O for Last 24 hours: Intake & Output 09/05/21 09/06/21 09/07/21 09/08/21 23:59 23:59 23:59 23:59 Intake Total 1112 / 1894 3852 / 3972 3823 / 4303 480 / 480 Output Total 625 / 865 635 / 2135 2400 / 2950 550 / 550 Balance 487 / 1029 3217 / 1837 1423 / 1353 -70 / -70 Weight 89.556 kg 89.5 kg 89.555 kg Microbiology Reports for the Last 24 Hours: Microbiology 09/05/21 07:30 Urine,Catheterized Urine Culture - Final NO GROWTH AFTER 48 HOURS 09/05/21 07:20 Blood Blood Culture - Preliminary NO GROWTH AFTER 48 HOURS 09/05/21 07:20 Blood Blood Culture - Preliminary NO GROWTH AFTER 48 HOURS Assessment and Plan (1) CVA (cerebral vascular accident) Status: Acute Qualifiers: CVA mechanism: unspecified Qualified Code(s): I63.9 - Cerebral infarction, unspecified Category: Medical Code(s): I63.9 - Cerebral infarction, unspecified (2) HCAP (healthcare-associated pneumonia) Status: Acute Category: Medical Code(s): J18.9 - Pneumonia, unspecified organism (3) Respiratory failure with hypercapnia Status: Acute Qualifiers: Chronicity: acute on chronic Qualified Code(s): J96.22 - Acute and chronic respiratory failure with hypercapnia Category: Medical Code(s): J96.92 - Respiratory failure, unspecified with hypercapnia (4) Obesity (BMI 30-39.9) Status: Acute Category: Medical Code(s): E66.9 - Obesity, unspecified (5) Anemia Status: Acute Qualifiers: Anemia type: unspecified type Qualified Code(s): D64.9 - Anemia, unspecified Category: Medical Code(s): D64.9 - Anemia, unspecified (6) Hypothyroidism Status: Chronic Qualifiers: Hypothyroidism type: acquired Qualified Code(s): E03.9 - Hypothyroidism, unspecified Category: Medical Code(s): E03.9 - Hypothyroidism, unspecified (7) Edema Status: Acute Qualifiers: Edema type: localized Qualified Code(s): R60.0 - Localized edema Category: Medical Code(s): R60.9 - Edema, unspecified (8) Severe sepsis with acute organ dysfunction Status: Acute Category: Medical Code(s): A41.9 - Sepsis, unspecified organism; R65.20 - Severe sepsis without septic shock The patient's infection will respond to the chosen ABx?: Yes (EMPIRIC THERAPY) Is the patient receiving the right drug, dose, and route?: Yes Could a more targeted ABx be ordered?: No (WILL DISCUSS DE-ESCALATION WITH MD)
--- NOTE | 2021-09-08 12:46 | HMH.ACPN2 ---
Internal Medicine - PN: Subj *Date: 09/08/21 *Time: 12:46 Interval history: Patient is looking much more alert than on admission. She is friendly and cooperative. She did relay some dyspnea during the night. She sounds wet and will get some Lasix morning. Exam Vital signs and Labs for Last 24 Hours: Temp Pulse Resp BP Pulse Ox 98.1 F 68 16 181/75 H 95 09/08/21 12:00 09/08/21 12:00 09/08/21 12:00 09/08/21 12:00 09/08/21 12:00 Laboratory Results - last 24 hr 09/07/21 16:06: POC Glucose 229 H 09/07/21 20:42: POC Glucose 264 H 09/08/21 06:02: POC Glucose 191 H 09/08/21 07:17: WBC 13.0 H, RBC 2.92 L, Hgb 8.8 L, Hct 27.9 L, MCV 95.7, MCH 30.1, MCHC 31.5 L, RDW 18.9 H, Plt Count 431 H, MPV 8.4, Neut % (Auto) 83.2 H, Lymph % (Auto) 8.5 L, [place] % (Auto) 6.0, Eos % (Auto) 1.6, Baso % (Auto) 0.7, Neut # (Auto) 10.8 H, Lymph # (Auto) 1.1, [place] # (Auto) 0.8, Eos # (Auto) 0.2, Baso # (Auto) 0.1 09/08/21 07:17: Sodium 140, Potassium 4.0, Chloride 107, Carbon Dioxide 26, Anion Gap 11.0, BUN 32 H D, Creatinine 0.80, Estimated Creat Clear 68, Estimated GFR 70, Est GFR ( Amer) 84 D, Glucose 208 H, Calcium 8.3 L I & O for Last 24 hours: Intake & Output 09/05/21 09/06/21 09/07/21 09/08/21 23:59 23:59 23:59 23:59 Intake Total 1112 / 1894 3852 / 3972 3823 / 4303 1255 / 1255 Output Total 625 / 865 635 / 2135 2400 / 2950 550 / 550 Balance 487 / 1029 3217 / 1837 1423 / 1353 705 / 705 Weight 197 lb 7 oz 197 lb 5.019 oz 197 lb 6.959 oz - Constitutional no acute distress - *Routine HEENT Exam Head: Present: normocephalic Eye: Present: EOMI, PERRL ENT: Present: mucous membranes moist - *Routine Neck Exam Present: supple. Absent: lymphadenopathy - *Routine Respiratory Exam Present: rales, crackles. Absent: accessory muscle use, prolonged expiratory phase, wheezes - *Routine Cardiovascular Exam Present: RRR - *Routine Abdominal Exam Present: soft, normoactive bowel sounds. Absent: tenderness - *Routine Extremities Exam Present: edema - *Routine Skin Exam Absent: jaundice Comments: lesion base of left heel decub - *Routine Neurological Exam Present: alert, vision grossly intact, hearing grossly intact. Absent: altered mental status Assessment and Plan (1) CVA (cerebral vascular accident) Status: Acute Qualifiers: CVA mechanism: unspecified Qualified Code(s): I63.9 - Cerebral infarction, unspecified Category: Medical Code(s): I63.9 - Cerebral infarction, unspecified (2) HCAP (healthcare-associated pneumonia) Status: Acute Category: Medical Code(s): J18.9 - Pneumonia, unspecified organism (3) Respiratory failure with hypercapnia Status: Acute Qualifiers: Chronicity: acute on chronic Qualified Code(s): J96.22 - Acute and chronic respiratory failure with hypercapnia Category: Medical Code(s): J96.92 - Respiratory failure, unspecified with hypercapnia (4) Obesity (BMI 30-39.9) Status: Acute Category: Medical Code(s): E66.9 - Obesity, unspecified (5) Anemia Status: Acute Qualifiers: Anemia type: unspecified type Qualified Code(s): D64.9 - Anemia, unspecified Category: Medical Code(s): D64.9 - Anemia, unspecified (6) Hypothyroidism Status: Chronic Qualifiers: Hypothyroidism type: acquired Qualified Code(s): E03.9 - Hypothyroidism, unspecified Category: Medical Code(s): E03.9 - Hypothyroidism, unspecified (7) Edema Status: Acute Qualifiers: Edema type: localized Qualified Code(s): R60.0 - Localized edema Category: Medical Code(s): R60.9 - Edema, unspecified (8) Severe sepsis with acute organ dysfunction Status: Acute Category: Medical Code(s): A41.9 - Sepsis, unspecified organism; R65.20 - Severe sepsis without septic shock - Assessment and plan all Dx Assessment and Plan for all problems:: Patient to get 80 of Lasix this morning. Will reduce fluids to KVO. We will monitor
--- NOTE | 2021-09-08 12:53 | XR_ITS ---
PROCEDURE INFORMATION: Exam: XR Chest Exam date and time: 09/08/2021 1:34 PM Age: 75 years old Clinical indication: Shortness of breath; Additional info: Pna TECHNIQUE: Imaging protocol: Radiologic exam of the chest. Views: 1 view. COMPARISON: CT CHEST WO CON 09/05/2021 12:05 PM FINDINGS: Lungs: Bilateral patchy regions of opacification in the perihilar regions as well as lower lobes. Pleural spaces: Persistent bilateral pleural effusions. Heart/Mediastinum: Persistent cardiomegaly. Bones/joints: Unremarkable. IMPRESSION: 1. Persistent suspected regions of pneumonia. Changes related to congestive failure could not be excluded. 2. Cardiomegaly unchanged. 3. Small bilateral pleural effusions.
[2021-09-08 13:29] LABS: Vancomycin,Trough 15.4 ug/mL (5.0-10.0)
[2021-09-08 17:55] LABS: Vancomycin,Peak 31.3 ug/ml (11-39)
--- NOTE | 2021-09-08 18:18 | PC.NURSE ---
pt's 16fr weems catheter is leaking urine around insertion. 16fr removed and new 18fr inserted. UOP clear yellow.
[2021-09-08 18:40] LABS: POC Glucose,Bedside 202 (70-110)
[2021-09-08 18:40] LABS: POC Glucose,Bedside 221 (70-110)
[2021-09-08 23:14] LABS: POC Glucose,Bedside 175 (70-110)
[2021-09-09] VITALS (8 sets, daily range): BP systolic 154–171; BP diastolic 52–65; PULSE 53–78; RESP 16–20; TEMP 36.6–36.7; O2SAT 90–97; BMI 31.6
[2021-09-09 06:22] LABS: Chloride 106 mmol/L (98-107); Potassium 3.6 mmoL/L (3.5-5.1); Sodium 139 mmol/L (136-145)
[2021-09-09 06:25] LABS: Anion Gap 5.6 mEq/L (5-15); Basophils % 0.4 % (0.1-2.0); Blood Urea Nitrogen 28 mg/dl (7-17); Carbon Dioxide 31 mmol/L (22.0-30.0); Creatinine Clearance Estimated 68 mL/min (50-200); Eosinophils # 0.1 K/mm3 (0.0-0.4); Eosinophils % 0.6 % (0.1-12.0); Estimated Glomerular Filt Rate 97 ml/min (>60); GFR (African American) 118 ML/MIN (>60); Lymphocytes # 0.8 K/mm3 (0.7-4.5); Lymphocytes % 7.7 % (10-50); Mean Corpuscular HGB Conc 33.1 g/dL (31.8-35.4); Mean Corpuscular Hemoglobin 30.8 pg (27.0-31.2); Mean Corpuscular Volume 93.1 fl (81-99); Mean Platelet Volume 9.3 fl (7.4-10.4); Monocytes # 0.6 K/mm3 (0.1-1.0); Monocytes % 5.7 % (1.7-9.3); Neutrophils # 8.3 K/mm3 (1.8-7.8); Neutrophils % 85.7 % (37.0-80.0); Platelet Count 360 K/mm3 (142-424); Red Blood Count 2.61 M/mm3 (4.20-5.40); Red Cell Distribution Width 18.4 % (11.5-17.5); White Blood Count 9.7 K/mm3 (4.8-10.8)
[2021-09-09 06:26] LABS: Glucose 189 mg/dl (74-100)
[2021-09-09 06:27] LABS: Hematocrit 24.3 % (37.0-47.0); MANUAL DIFFERENTIAL MANUAL DIFFERENTIAL (MANUAL DIFF)
[2021-09-09 06:28] LABS: POC Glucose,Bedside 203 (70-110)
[2021-09-09 06:37] LABS: Lymphocytes % 15 % (10-50); Monocytes % 1 % (2-9); Neutrophils % 83 % (42-76); Total Cells Counted 100
[2021-09-09 06:38] LABS: Anisocytosis 2+; Hypersegmented Neutrophils 2+; Platelet Estimate Normal; Poikilocytosis 1+
[2021-09-09 09:53] LABS: Coronavirus 19, PCR Not Detected (NotDetected); Influenza A, PCR Not Detected (NotDetected); Influenza B, PCR Not Detected (NotDetected)
--- NOTE | 2021-09-09 11:19 | PC.NURSE ---
received in report that pt r pupil was larger than left and that pt had weakness on right side. upon assessment, pupils were noted to be equal and reactive. pt does have noted weakness in right arm.
--- NOTE | 2021-09-09 11:28 | HMH.PULMPN ---
Internal Medicine - PN: Subj *Date: 09/09/21 *Time: 11:28 Interval history: No acute resp events overnight Exam - Constitutional Constitutional:: Present: no acute distress - HENMT Exam HENMT: Present: normocephalic - Eye Exam Eyes:: Present: normal appearance both eyes and related structures - Neck Exam Neck:: Present: normal visual inspection - Respiratory Exam Respiratory:: Present: able to speak in complete sentences, no respiratory distress, crackles. Absent: wheezing - Cardiovascular Exam Cardiac:: Present: S1, S2 - GI Exam GI:: Present: soft - Skin Exam Skin: Present: warm, no rash - Neurological Exam Neurological: Present: alert, awake - Extremities Exam Extremities: Present: no cyanosis, no clubbing, edema Assessment and Plan (1) CVA (cerebral vascular accident) Status: Acute Qualifiers: CVA mechanism: unspecified Qualified Code(s): I63.9 - Cerebral infarction, unspecified Category: Medical Code(s): I63.9 - Cerebral infarction, unspecified (2) HCAP (healthcare-associated pneumonia) Status: Acute Category: Medical Code(s): J18.9 - Pneumonia, unspecified organism (3) Respiratory failure with hypercapnia Status: Acute Qualifiers: Chronicity: acute on chronic Qualified Code(s): J96.22 - Acute and chronic respiratory failure with hypercapnia Category: Medical Code(s): J96.92 - Respiratory failure, unspecified with hypercapnia (4) Obesity (BMI 30-39.9) Status: Acute Category: Medical Code(s): E66.9 - Obesity, unspecified (5) Anemia Status: Acute Qualifiers: Anemia type: unspecified type Qualified Code(s): D64.9 - Anemia, unspecified Category: Medical Code(s): D64.9 - Anemia, unspecified (6) Hypothyroidism Status: Chronic Qualifiers: Hypothyroidism type: acquired Qualified Code(s): E03.9 - Hypothyroidism, unspecified Category: Medical Code(s): E03.9 - Hypothyroidism, unspecified (7) Edema Status: Acute Qualifiers: Edema type: localized Qualified Code(s): R60.0 - Localized edema Category: Medical Code(s): R60.9 - Edema, unspecified (8) Severe sepsis with acute organ dysfunction Status: Acute Category: Medical Code(s): A41.9 - Sepsis, unspecified organism; R65.20 - Severe sepsis without septic shock - Assessment and plan all Dx Assessment and Plan for all problems:: #Acute on Chronic hypoxic respiratory failure: On admission - Patient altered, only responding to painful stimuli. Much of the history obtained from patient's daughter and chart review. 75-year-old female history of prior ischemic strokes, seizure currently on Keppra 500 twice daily, hypothyroidism on levothyroxine 125 daily chronic hypoxic respiratory failure on 2 L oxygen therapy, diastolic heart failure with EF of 55% from her prior echo, diabetes on insulin presented to the hospital after was found altered. As per the patient's daughter patient was found to be hypoglycemic initially. Admission labs also noted profound anemia with a hemoglobin of 5.7. CT head no acute abnormality/hemorrhage. CT chest showed prominent right airspace along with bilateral effusions right greater than left. Physical examination also with bilateral diffuse edema 3+ bilateral lower extremities. BNP on admission elevated at 8340. No evidence of leukocytosis. ABG on admission hypoxic respiratory failure, hypercarbia noted with a normal pH. Hospital Course: Patient was initiated on her home seizure medication along with IV levothyroxine and stress dose steroids and just received transfusion and patient significantly improved. Her pleural effusions also improved with diuresis along with her renal function. Patient today on 2 L home oxygen therapy. Does not appear to be in any respiratory distress. EEG no evidence of seizures. Mentation significantly reviewed, alert and oriented x3. At baseline as per patient's family. Slurred speech secondary to prior
[2021-09-09 12:45] LABS: POC Glucose,Bedside 187 (70-110)
--- NOTE | 2021-09-09 13:30 | HMH.ACPN2 ---
Internal Medicine - PN: Subj *Date: 09/09/21 *Time: 15:10 Interval history: doing better this am-- more alert -will check labs Exam Vital signs and Labs for Last 24 Hours: Temp Pulse Resp BP Pulse Ox 97.9 F 66 18 171/65 H 91 L 09/09/21 11:48 09/09/21 13:20 09/09/21 11:48 09/09/21 11:48 09/09/21 13:20 Laboratory Results - last 24 hr 09/08/21 11:12: POC Glucose 221 H 09/08/21 12:27: Vancomycin Trough 15.4 H 09/08/21 16:01: POC Glucose 202 H 09/08/21 17:19: Vancomycin Peak 31.3 09/08/21 21:07: POC Glucose 175 H 09/09/21 05:35: WBC 9.7 D, RBC 2.61 L, Hgb 8.0 L, Hct 24.3 L, MCV 93.1, MCH 30.8, MCHC 33.1, RDW 18.4 H, Plt Count 360, MPV 9.3, Neut % (Auto) 85.7 H, Lymph % (Auto) 7.7 L, [place] % (Auto) 5.7, Eos % (Auto) 0.6, Baso % (Auto) 0.4, Neut # (Auto) 8.3 H, Lymph # (Auto) 0.8, [place] # (Auto) 0.6, Eos # (Auto) 0.1, Baso # (Auto) 0.0, Total Counted 100, Neutrophils % (Manual) 83 H, Band Neutrophils % 1.0, Lymphocytes % (Manual) 15, Monocytes % (Manual) 1 L, Hypersegmented Neuts 2+, Platelet Estimate Normal, Poikilocytosis 1+, Anisocytosis 2+ 09/09/21 05:35: Sodium 139, Potassium 3.6, Chloride 106, Carbon Dioxide 31 H, Anion Gap 5.6, BUN 28 H, Creatinine 0.60 D, Estimated Creat Clear 68, Estimated GFR 97, Est GFR ( Amer) 118 D, Glucose 189 H, Calcium 8.0 L 09/09/21 06:20: POC Glucose 203 H 09/09/21 09:00: SARS-CoV-2 (PCR) Not detected, Influenza A Untype (PCR) Not detected, Influenza Type B (PCR) Not detected 09/09/21 11:58: POC Glucose 187 H I & O for Last 24 hours: Intake & Output 09/07/21 09/08/21 09/09/21 09/10/21 11:59 11:59 11:59 11:59 Intake Total 3121 / 3121 4718 / 4718 1555 / 1555 480 / 480 Output Total 1500 / 1500 1800 / 1800 2970 / 2970 Balance 1621 / 1621 2918 / 2918 -1415 / -1415 480 / 480 Weight 197 lb 5.019 oz 197 lb 6.959 oz 201 lb 9 oz - Constitutional no acute distress, obese - *Routine HEENT Exam Head: Present: normocephalic Eye: Present: EOMI, PERRL ENT: Present: mucous membranes moist - *Routine Neck Exam Absent: JVD - *Routine Respiratory Exam Present: decreased breath sounds, rhonchi - *Routine Cardiovascular Exam Present: RRR, murmur, S4 - *Routine Abdominal Exam Present: soft. Absent: tenderness - *Routine Extremities Exam Absent: calf tenderness - *Routine Skin Exam Present: intact - *Routine Neurological Exam Present: alert, CN II-XII intact, motor deficit (dec use of rt upper and lower ext ) - Routine Psychiatric Exam Present: cooperative Assessment and Plan (1) CVA (cerebral vascular accident) Status: Acute Qualifiers: CVA mechanism: unspecified Qualified Code(s): I63.9 - Cerebral infarction, unspecified Category: Medical Code(s): I63.9 - Cerebral infarction, unspecified (2) HCAP (healthcare-associated pneumonia) Status: Acute Category: Medical Code(s): J18.9 - Pneumonia, unspecified organism (3) Respiratory failure with hypercapnia Status: Acute Qualifiers: Chronicity: acute on chronic Qualified Code(s): J96.22 - Acute and chronic respiratory failure with hypercapnia Category: Medical Code(s): J96.92 - Respiratory failure, unspecified with hypercapnia (4) Obesity (BMI 30-39.9) Status: Acute Category: Medical Code(s): E66.9 - Obesity, unspecified (5) Anemia Status: Acute Qualifiers: Anemia type: unspecified type Qualified Code(s): D64.9 - Anemia, unspecified Category: Medical Code(s): D64.9 - Anemia, unspecified (6) Hypothyroidism Status: Chronic Qualifiers: Hypothyroidism type: acquired Qualified Code(s): E03.9 - Hypothyroidism, unspecified Category: Medical Code(s): E03.9 - Hypothyroidism, unspecified (7) Edema Status: Acute Qualifiers: Edema type: localized Qualified Code(s): R60.0 - Localized edema Category: Medical Code(s): R60.9 - Edema, unspecified (8) Severe sepsis with acute organ dysfunction Status: Acute Category:
--- NOTE | 2021-09-09 15:14 | HMH.DCSUM ---
General - General Admission date:: 09/05/21 Discharge date: 09/09/21 HPI HPI: Female patient presented to the [facility] emergency department via EMS from [facility] for reports of altered mental status. Staff there reports patient would open eyes to painful stimuli only increased generalized edema, she does wear O2 continuously at 2 L per nasal cannula. Staff reports blood sugar was low and given packets of sugar exact reading unknown, EMS reports blood sugar 60. She does have a history of CVA with right-sided weakness Rectal temperature 94.6, respirations 21, community-acquired pneumonia, patient on Vapotherm. Unable to receive full amount of fluid resuscitation due to concern for ongoing heart failure, edema, bradycardia. She was given 3 mL/kg for a total of 150 cc an hour for 2 hours to equal 300 cc. Patient will be evaluated after bolus Long discussion with patient's daughter regarding the patient's medical status. Daughter states patient wishes are to be DNR and severity of patient illness discussed with patient's daughter. She states that her mother has been declining over the past 6 to 8 months and has several strokes in the past 4 months. Hospital Course Hospital Course: pt was admitted with acute hcap with resp failure and altered mental status- pt with anemia and pos hemocult and was transfussed sec to hypoxia and dec volume - pt has improved and was seen by pul med for consult:: Acute on chronic hypoxic respiratory failure Patient altered, only responding to painful stimuli. Much of the history obtained from patient's daughter and chart review. Ms. [facility] is a 75-year-old female history of prior ischemic strokes, seizure currently on Keppra 500 twice daily, hypothyroidism on levothyroxine 125 daily chronic hypoxic respiratory failure on 2 L oxygen therapy, diastolic heart failure with EF of 55% from her prior echo, diabetes on insulin presented to the hospital after was found altered and pulmonary was called for further management pt has improved with fluids including blood transfusion and iv abx - pt with baseliner mental function and clinton diet - at baseline with ambulation - will continue at [facility] meds and treatment Objective Vital signs: Temp Pulse Resp BP Pulse Ox 97.9 F 66 18 171/65 H 91 L 09/09/21 11:48 09/09/21 13:20 09/09/21 11:48 09/09/21 11:48 09/09/21 13:20 no acute distress, obese - *Routine HEENT Exam Eye: Present: EOMI, PERRL ENT: Present: mucous membranes moist - *Routine Neck Exam Absent: JVD - *Routine Respiratory Exam Present: decreased breath sounds, rhonchi - *Routine Cardiovascular Exam Present: RRR, murmur, S4 - *Routine Abdominal Exam Present: soft - *Routine Extremities Exam Absent: calf tenderness - *Routine Skin Exam Present: intact - *Routine Neurological Exam Present: alert, motor deficit prev rt sided weakness - Routine Psychiatric Exam Present: cooperative Results Labs on day of discharge: Labs from last 24 hours 09/09/21 09/09/21 09/09/21 11:58 09:00 06:20 WBC RBC Hgb Hct MCV MCH MCHC RDW Plt Count MPV Neut % (Auto) Lymph % (Auto) [place] % (Auto) Eos % (Auto) Baso % (Auto) Neut # (Auto) Lymph # (Auto) [place] # (Auto) Eos # (Auto) Baso # (Auto) Total Counted Neutrophils % (Manual) Band Neutrophils % Lymphocytes % (Manual) Monocytes % (Manual) Hypersegmented Neuts Platelet Estimate Poikilocytosis Anisocytosis Sodium Potassium Chloride Carbon Dioxide Anion Gap BUN Creatinine Estimated Creat Clear Estimated GFR Est GFR ( Amer) Glucose POC Glucose 187 H 203 H Calcium Vancomycin Peak SARS-CoV-2 (PCR) Not detected Influenza A Untype (PCR) Not detected Influenza Type B (PCR) Not detected 09/09/21 09/09/21 09/08/21 05:35 0
--- NOTE | 2021-09-09 15:31 | PC.NURSE ---
Addendum entered by Sana Ga RN 09/09/21 17:59: [address] back from dr Solanos office. per md alves to remove dank Original Note: [address] Solano's office and left message. CM notified in pt note that pt was to be DC to [facility] this shift. as of 1499 no orders entered. called md office to clarify about discharge. 1514 discharge order entered.
--- NOTE | 2021-09-09 15:44 | PC.NURSE ---
Attempted to call report to [facility] at the following times. [phone] no answer [phone] staff answered phone
--- NOTE | 2021-09-09 16:51 | PC.NURSE ---
Called report to Radha Loya pt POA. notified her that pt is being discharged back to [facility]. [id number]
[2021-09-09 17:43] LABS: POC Glucose,Bedside 249 (70-110)
--- NOTE | 2021-09-09 18:07 | PC.NURSE ---
Addendum entered by Sana Ga RN 09/09/21 18:08: folwy cath removed at 1720. Iv in l fa removed as well. tip intact. pt voided prior to dc. brief changed Original Note: pt out the door with EMS at this time. 180
--- NOTE | 2021-09-10 14:42 | CARE MANAGER ---
Patient doing well and denies questions or concerns. WILLIAMS Mena
== END 2021-09-09 18:09 | DRG 193 ==
LOC: ER 07:36 → 2ND 08:48
PROVIDERS: Internal Medicine Pulmonary Disease; Nurse Practitioner Family; Admitting Provider Emergency Medicine; Emergency Provider Emergency Medicine; PCP Emergency Medicine; Visit Provider Emergency Medicine
DX: J18.9 Pneumonia, unspecified organism (principal); A41.9 Sepsis, unspecified organism; R65.20 Severe sepsis without septic shock; J96.22 Acute and chronic respiratory failure with hypercapnia; I50.30 Unspecified diastolic (congestive) heart failure; N17.9 Acute kidney failure, unspecified; D62 Acute posthemorrhagic anemia; I69.351 Hemiplegia and hemiparesis following cerebral infarction affecting right dominant side; Y95 Nosocomial condition; E03.9 Hypothyroidism, unspecified; F41.8 Other specified anxiety disorders; I25.10 Atherosclerotic heart disease of native coronary artery without angina pectoris; F32.A Depression, unspecified; K21.9 Gastro-esophageal reflux disease without esophagitis; E78.5 Hyperlipidemia, unspecified; E11.51 Type 2 diabetes mellitus with diabetic peripheral angiopathy without gangrene; E66.9 Obesity, unspecified; Z68.31 Body mass index [BMI] 31.0-31.9, adult; I11.0 Hypertensive heart disease with heart failure; G40.909 Epilepsy, unspecified, not intractable, without status epilepticus; Z87.891 Personal history of nicotine dependence; E11.649 Type 2 diabetes mellitus with hypoglycemia without coma
CPT/HCPCS: 36415; 51702; 70450; 71045; 71250; 80048; 80053; 80202; 81001; 82272; 82533; 82550; 82803; 82962; 83605; 83615; 83735; 83880; 84100; 84436; 84439; 84443; 84484; 85007; 85025; 85610; 86850; 86870; 87040; 87086; 92610; 93005; 93306; 93970; 94640; 94761; 95819; 99285; C9803; G0328; J0456; J1953; P9016; U0003; U0005